=== PATIENT | male | born 1945 | race Caucasian/White ===

== ENCOUNTER → 2023-07-02 12:51 | Outpatient (REF) | payer MEDICARE, OTHER, SELFPAY ==
[2023-07-02 13:40] LABS: ALT (SGPT) 23 U/L (0-50); AST (SGOT) 24 U/L (17-59); Alkaline Phosphatase 90 U/L (38-126); Blood Urea Nitrogen 56 mg/dl (9-20); Carbon Dioxide 29 mmol/L (22-30); Chloride 102 mmol/L (98-107); Glucose 168 mg/dl (70-99); Phosphorus 4.9 mg/dl (2.5-4.5); Potassium 4.3 mmol/L (3.5-5.1); Sodium 137 mmol/L (135-145); Total Bilirubin 0.8 mg/dl (0.2-1.3); Total Protein 6.7 g/dl (6.3-8.2); eGFR 35.44
[2023-07-02 14:04] LABS: Glycohemoglobin (HgbA1c) 10.8 % (4.0-5.6)
== END ==
LOC: REG 12:51
PROVIDERS: ATTENDING PHYSICIAN Specialist; FAMILY PHYSICIAN Family Medicine
DX: N18.32 Chronic kidney disease, stage 3b (principal); E11.22 Type 2 diabetes mellitus with diabetic chronic kidney disease; I10 Essential (primary) hypertension
CPT/HCPCS: 36415; 80053; 83036; 84100

== ENCOUNTER → 2023-07-28 10:52 | Outpatient (REF) | payer MEDICARE, OTHER, SELFPAY | LOC: RAD 10:52 | PROVIDERS: ATTENDING PHYSICIAN Surgery Vascular Surgery | DX: I73.9 Peripheral vascular disease, unspecified (principal) | CPT/HCPCS: 93922; 93925 ==

== ENCOUNTER → 2023-09-26 11:20 | Outpatient (REF) | payer MEDICARE, OTHER, SELFPAY ==
[2023-09-26 13:35] LABS: % Eosinophils 2.2 % (0-6); % Immature Granulocytes 0.7 % (0-0.5); % Lymphocytes 20.9 % (20.5-51.1); % Monocytes 7.9 % (1.7-9.3); % Neutrophils 67.3 % (42.2-75.2); Absolute Basophils 0.1 10^3/uL (0-0.2); Absolute Eosinophils 0.2 10^3/uL (0-0.7); Absolute Immature Granulocytes 0.1 10^3/uL (0-0.05); Absolute Lymphocytes 1.9 10^3/uL (1.2-3.4); Absolute Monocytes 0.7 10^3/uL (0.1-0.6); Absolute Neutrophils 6.1 10^3/uL (1.4-6.5); Mean Corp Hgb Conc. 31.1 g/dL (33.0-37.0); Mean Corpuscular Hgb 27.8 pg (27.0-31.0); Mean Corpuscular Volume 89.3 fL (80.0-94.0); Mean Platelet Volume 10.8 fL (7.4-10.4); Nucleated Red Blood Cells % 0 % (-); Platelet Count 174 10^3/uL (130-400); Red Blood Cell Count 5.04 10^6/uL (4.70-6.10); Red Cell Dist. Width 15.3 % (11.5-14.5)
[2023-09-26 14:15] LABS: Protein/creatinine Ratio 2.2; Urine Protein 106 mg/dl
[2023-09-26 14:29] LABS: ALT (SGPT) 24 U/L (0-50); AST (SGOT) 25 U/L (17-59); Alkaline Phosphatase 90 U/L (38-126); Blood Urea Nitrogen 46 mg/dl (9-20); Calcium 9.4 mg/dl (8.4-10.2); Carbon Dioxide 27 mmol/L (22-30); Chloride 99 mmol/L (98-107); Glucose 158 mg/dl (70-99); HDL Cholesterol 48 mg/dl; LDL Cholesterol, Calculated 29 mg/dl; Phosphorus 4.5 mg/dl (2.5-4.5); Potassium 4.4 mmol/L (3.5-5.1); Sodium 137 mmol/L (135-145); Total Bilirubin 0.7 mg/dl (0.2-1.3); Total Cholesterol 120 mg/dl (50-199); Total Protein 6.7 g/dl (6.3-8.2); Triglyceride 219 mg/dl (10-149); Very Low Density Lipoprotein 43 mg/dl (0-30); eGFR 37.82
[2023-09-26 14:56] LABS: Glycohemoglobin (HgbA1c) 10.8 % (4.0-5.6)
[2023-09-26 14:57] LABS: PSA, Total - Diagnostic 1.77 ng/ml (0.0-4.0)
[2023-09-26 16:10] LABS: Intact PTH 58.6 pg/ml (13.6-85.8)
== END ==
LOC: REG 11:20
PROVIDERS: ATTENDING PHYSICIAN Specialist; FAMILY PHYSICIAN Family Medicine; OTHER PHYSICIAN Specialist
DX: C61 Malignant neoplasm of prostate (principal); R80.3 Bence Jones proteinuria; N18.32 Chronic kidney disease, stage 3b; I10 Essential (primary) hypertension; E11.22 Type 2 diabetes mellitus with diabetic chronic kidney disease; N18.4 Chronic kidney disease, stage 4 (severe); E11.69 Type 2 diabetes mellitus with other specified complication; E78.2 Mixed hyperlipidemia; M62.59 Muscle wasting and atrophy, not elsewhere classified, multiple sites
CPT/HCPCS: 36415; 80053; 80061; 82570; 83036; 83970; 84100; 84153; 84156; 85025

== ENCOUNTER → 2024-02-05 07:01 | Outpatient (REF) | payer MEDICARE, OTHER, SELFPAY ==
[2024-02-05 08:26] LABS: % Basophils 0.8 % (0-2); % Eosinophils 2.4 % (0-6); % Immature Granulocytes 0.6 % (0-0.5); % Lymphocytes 19.1 % (20.5-51.1); % Monocytes 10.1 % (1.7-9.3); Absolute Basophils 0.1 10^3/uL (0-0.2); Absolute Eosinophils 0.2 10^3/uL (0-0.7); Absolute Immature Granulocytes 0.1 10^3/uL (0-0.05); Absolute Lymphocytes 1.6 10^3/uL (1.2-3.4); Absolute Monocytes 0.8 10^3/uL (0.1-0.6); Absolute Neutrophils 5.5 10^3/uL (1.4-6.5); Hematocrit 43.6 % (39.0-52.0); Hemoglobin 13.9 g/dL (13.0-18.0); Mean Corp Hgb Conc. 31.9 g/dL (33.0-37.0); Mean Corpuscular Hgb 29.3 pg (27.0-31.0); Mean Corpuscular Volume 91.8 fL (80.0-94.0); Mean Platelet Volume 11.1 fL (7.4-10.4); Nucleated Red Blood Cells % 0 % (-); Platelet Count 179 10^3/uL (130-400); Red Blood Cell Count 4.75 10^6/uL (4.70-6.10); Red Cell Dist. Width 15.2 % (11.5-14.5); White Blood Cell Count 8.3 10^3/uL (4.8-10.8)
[2024-02-05 09:19] LABS: Glycohemoglobin (HgbA1c) 8.8 % (4.0-5.6)
[2024-02-05 10:37] LABS: ALT (SGPT) 22 U/L (0-50); AST (SGOT) 21 U/L (17-59); Albumin 3.8 g/dl (3.5-5.0); Alkaline Phosphatase 88 U/L (38-126); Blood Urea Nitrogen 52 mg/dl (9-20); Calcium 9.2 mg/dl (8.4-10.2); Carbon Dioxide 28 mmol/L (22-30); Chloride 100 mmol/L (98-107); Glucose 319 mg/dl (70-99); HDL Cholesterol 41 mg/dl; LDL Cholesterol, Calculated 23 mg/dl; Potassium 4.6 mmol/L (3.5-5.1); Sodium 142 mmol/L (135-145); Total Bilirubin 0.4 mg/dl (0.2-1.3); Total Cholesterol 105 mg/dl (50-199); Total Protein 6.2 g/dl (6.3-8.2); Triglyceride 208 mg/dl (10-149); Very Low Density Lipoprotein 41 mg/dl (0-30); eGFR 40.25
== END ==
LOC: REG 07:01
PROVIDERS: ATTENDING PHYSICIAN Physician Assistant; FAMILY PHYSICIAN Family Medicine
DX: E11.65 Type 2 diabetes mellitus with hyperglycemia (principal)
CPT/HCPCS: 36415; 80053; 80061; 83036; 85025

== ENCOUNTER → 2024-03-22 11:38 | Outpatient (REF) | payer MEDICARE, OTHER, SELFPAY ==
[2024-03-22 14:32] LABS: PSA, Total - Diagnostic 2.19 ng/ml (0.0-4.0)
== END ==
LOC: REG 11:38
PROVIDERS: ATTENDING PHYSICIAN Specialist; FAMILY PHYSICIAN Family Medicine
DX: C61 Malignant neoplasm of prostate (principal)
CPT/HCPCS: 36415; 84153

== ENCOUNTER → 2024-05-22 11:19 | Outpatient (REF) | payer MEDICARE, OTHER, SELFPAY ==
[2024-05-22 12:29] LABS: Albumin 4.1 g/dl (3.5-5.0); Blood Urea Nitrogen 51 mg/dl (9-20); Calcium 9.2 mg/dl (8.4-10.2); Carbon Dioxide 26 mmol/L (22-30); Chloride 97 mmol/L (98-107); Glucose 257 mg/dl (70-99); Phosphorus 4.6 mg/dl (2.5-4.5); Potassium 4.5 mmol/L (3.5-5.1); Sodium 136 mmol/L (135-145); eGFR 33.12
[2024-05-22 12:30] LABS: Protein/creatinine Ratio 2.6; Urine Protein 100 mg/dl
[2024-05-22 12:40] LABS: Intact PTH 84.9 pg/ml (13.6-85.8)
[2024-05-22 12:59] LABS: PSA, Total - Diagnostic 1.64 ng/ml (0.0-4.0)
[2024-05-22 14:11] LABS: Glycohemoglobin (HgbA1c) 9.8 % (4.0-5.6)
== END ==
LOC: REG 11:19
PROVIDERS: ATTENDING PHYSICIAN Specialist; FAMILY PHYSICIAN Family Medicine; REFERRING PHYSICIAN Specialist
DX: C61 Malignant neoplasm of prostate (principal); I10 Essential (primary) hypertension; E78.2 Mixed hyperlipidemia; N18.4 Chronic kidney disease, stage 4 (severe); E11.621 Type 2 diabetes mellitus with foot ulcer
CPT/HCPCS: 36415; 80069; 82570; 83036; 83970; 84153; 84156

== ENCOUNTER → 2024-06-14 10:49 | Outpatient (REF) | payer MEDICARE, OTHER, SELFPAY ==
[2024-06-14 11:53] LABS: Protein/creatinine Ratio 2.2; Urine Protein 90 mg/dl
[2024-06-14 11:59] LABS: ALT (SGPT) 68 U/L (0-50); AST (SGOT) 60 U/L (17-59); Albumin 4.1 g/dl (3.5-5.0); Alkaline Phosphatase 82 U/L (38-126); Blood Urea Nitrogen 48 mg/dl (9-20); Calcium 9.4 mg/dl (8.4-10.2); Carbon Dioxide 28 mmol/L (22-30); Chloride 98 mmol/L (98-107); Glucose 195 mg/dl (70-99); Phosphorus 4.3 mg/dl (2.5-4.5); Potassium 4.7 mmol/L (3.5-5.1); Sodium 139 mmol/L (135-145); Total Bilirubin 0.6 mg/dl (0.2-1.3); Total Protein 6.8 g/dl (6.3-8.2); Uric Acid 2.8 mg/dl (3.5-8.5); eGFR 43.29
[2024-06-14 12:16] LABS: Microalbumin, Random Urine 28.3 mg/dl (0.6-1.7); Microalbumin/creatinine Ratio 686.9 mg/g
[2024-06-14 12:17] LABS: Vitamin D, 25-OH*** 64.2 ng/mL (30-80)
[2024-06-14 12:30] LABS: PSA, Total - Diagnostic 1.58 ng/ml (0.0-4.0); TSH Reflex To Free T4 2.27 uIU/ml (0.47-4.68)
[2024-06-14 12:48] LABS: Vitamin B12 317 pg/ml (239-931)
[2024-06-14 18:44] LABS: Hepatitis C Antibody Negative (Negative)
[2024-06-15 11:42] LABS: Intact PTH 60.3 pg/ml (13.6-85.8)
== END ==
LOC: REG 10:49
PROVIDERS: ATTENDING PHYSICIAN Specialist; FAMILY PHYSICIAN Family Medicine; OTHER PHYSICIAN Internal Medicine Medical Oncology
DX: N18.32 Chronic kidney disease, stage 3b (principal); I10 Essential (primary) hypertension; E78.2 Mixed hyperlipidemia; N18.4 Chronic kidney disease, stage 4 (severe); Z79.899 Other long term (current) drug therapy; Z01.89 Encounter for other specified special examinations; R79.9 Abnormal finding of blood chemistry, unspecified; M1A.9XX0 Chronic gout, unspecified, without tophus (tophi); C61 Malignant neoplasm of prostate
CPT/HCPCS: 36415; 80053; 82043; 82306; 82570; 82607; 83970; 84100; 84153; 84156; 84443; 84550; 86803

== ENCOUNTER → 2024-07-24 09:27 | Outpatient (REF) | payer MEDICARE, OTHER, SELFPAY ==
[2024-07-24 12:05] LABS: PSA, Total - Diagnostic 1.71 ng/ml (0.0-4.0)
== END ==
LOC: REG 09:27
PROVIDERS: ATTENDING PHYSICIAN Specialist; FAMILY PHYSICIAN Family Medicine
DX: C61 Malignant neoplasm of prostate (principal)
CPT/HCPCS: 36415; 84153

== ENCOUNTER → 2024-09-06 14:09 | Outpatient (REF) | payer MEDICARE, OTHER, SELFPAY ==
[2024-09-06 14:40] LABS: % Basophils 0.6 % (0-2); % Eosinophils 1.5 % (0-6); % Immature Granulocytes 0.6 % (0-0.5); % Lymphocytes 25.2 % (20.5-51.1); % Monocytes 7.3 % (1.7-9.3); % Neutrophils 64.8 % (42.2-75.2); Absolute Basophils 0.1 10^3/uL (0-0.2); Absolute Eosinophils 0.1 10^3/uL (0-0.7); Absolute Immature Granulocytes 0.1 10^3/uL (0-0.05); Absolute Lymphocytes 2.2 10^3/uL (1.2-3.4); Absolute Monocytes 0.6 10^3/uL (0.1-0.6); Absolute Neutrophils 5.7 10^3/uL (1.4-6.5); Mean Corp Hgb Conc. 31.8 g/dL (33.0-37.0); Mean Corpuscular Hgb 28.1 pg (27.0-31.0); Mean Corpuscular Volume 88.2 fL (80.0-94.0); Mean Platelet Volume 10.2 fL (7.4-10.4); Nucleated Red Blood Cells % 0 % (-); Platelet Count 194 10^3/uL (130-400); Red Blood Cell Count 4.99 10^6/uL (4.70-6.10); Red Cell Dist. Width 15.3 % (11.5-14.5); White Blood Cell Count 8.8 10^3/uL (4.8-10.8)
[2024-09-06 15:04] LABS: Glycohemoglobin (HgbA1c) 8.9 % (4.0-5.6)
[2024-09-06 16:10] LABS: ALT (SGPT) 36 U/L (0-50); AST (SGOT) 32 U/L (17-59); Albumin 4.2 g/dl (3.5-5.0); Alkaline Phosphatase 99 U/L (38-126); Blood Urea Nitrogen 44 mg/dl (9-20); Calcium 9.3 mg/dl (8.4-10.2); Carbon Dioxide 26 mmol/L (22-30); Chloride 102 mmol/L (98-107); Glucose 139 mg/dl (70-99); HDL Cholesterol 44 mg/dl; LDL Cholesterol, Calculated 31 mg/dl; Potassium 4.5 mmol/L (3.5-5.1); Sodium 142 mmol/L (135-145); Total Bilirubin 0.7 mg/dl (0.2-1.3); Total Cholesterol 109 mg/dl (50-199); Total Protein 6.7 g/dl (6.3-8.2); Triglyceride 172 mg/dl (10-149); Very Low Density Lipoprotein 34 mg/dl (0-30); eGFR 40.25
[2024-09-06 16:55] LABS: Vitamin B12 854 pg/ml (239-931)
== END ==
LOC: REG 14:09
PROVIDERS: ATTENDING PHYSICIAN Specialist; FAMILY PHYSICIAN Family Medicine; REFERRING PHYSICIAN Physician Assistant
DX: N18.32 Chronic kidney disease, stage 3b (principal); E11.65 Type 2 diabetes mellitus with hyperglycemia; Z68.32 Body mass index [BMI] 32.0-32.9, adult; R79.9 Abnormal finding of blood chemistry, unspecified; Z01.89 Encounter for other specified special examinations; Z79.899 Other long term (current) drug therapy; E53.8 Deficiency of other specified B group vitamins
CPT/HCPCS: 36415; 80053; 80061; 82607; 83036; 85025

== ENCOUNTER 2024-09-22 16:34 | Inpatient (IN) | payer MEDICARE, OTHER, SELFPAY ==
[2024-09-22] VITALS (8 sets, daily range): BP systolic 112–144; BP diastolic 57–79; BMI 31.9; BMI 31.7
--- NOTE | 2024-09-22 12:34 | ED.GENMED ---
History of Present Illness
<Clarita Barney PA-C - Last Filed: 09/22/24 19:38>
General
Chief Complaint: Abdominal Symptoms
Source: patient
Exam Limitations: none
Time Seen by Provider: 09/22/24 12:23
Nursing documentation reviewed up to this point in time: agreed with
History of Present Illness
History of Present Illness:
Patient is an 78-year-old male with history atrial fibrillation on Eliquis, CHF, CAD, hypertension, hyperlipidemia, CKD, diabetes presenting to the emergency department with abdominal pain. Patient states symptoms started last night around 9 PM.
He describes somewhat diffuse abdominal pain without any radiation to back. He does report nausea although denies any vomiting. He also reports urinary frequency and multiple formed bowel movements. Patient denies any fever or chills. No
diarrhea. No dysuria. No chest pain or shortness of breath.
Patient states he had just eaten [place] water ice prior to onset of symptoms.
He denies any history of similar symptoms.
No known sick contacts.
Past History
<Clarita Barney PA-C - Last Filed: 09/22/24 19:38>
Past History
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
ED Past Surgical History: Cardiac (Pacemaker, stent RCA), Orthopedic and Other (Left foot ulceration with surgery)
Social History
Tobacco: Non-smoker
Alcohol: None
Personal:
Living: with family
Employment: Retired
Family History
Family History: Diabetes
Review of Systems
<Clarita Barney PA-C - Last Filed: 09/22/24 19:38>
Review of Systems
Allergies reviewed?: Yes
All Other Systems: ROS reviewed and negative except as documented in HPI and ROS
Phy Exam
<Clarita Barney PA-C - Last Filed: 09/22/24 19:38>
Physical Exam
Physical Exam:
Vitals: Patient's vital signs are stable. Afebrile
General: Patient is well appearing, no acute distress
Skin: Warm and dry, no rashes or lesions
Head: Normocephalic, atraumatic
Eyes: Sclera nonicteric. EOMs intact. No nystagmus.
Throat: Protecting airway
Neck: Normal ROM, no cervical spine tenderness, no meningismus
Cardiac: Regular rate and rhythm, no murmurs.
Pulm: Normal respiratory effort, no wheezes, rales, rhonchi heard on exam.
Abdomen: Mildly distended. Moderate diffuse abdominal tenderness without rebound tenderness or guarding. No CVA tenderness.
Extremities: No evidence of cyanosis or edema. Palpable DP pulses
Neuro: AAOx3. CN II-XII grossly intact on examination. No focal neurologic deficits.
Psychiatric: Normal affect.
Course
<Clarita Barney PA-C - Last Filed: 09/22/24 19:38>
Orders/Labs/Results
Orders:
Orders
09/22/24 Lunch
NPO
Allow oral meds: Yes
Allow clear liquids: No
09/22/24 12:32
HYDROmorphone [Dilaudid] 0.5 mg IV NOW STA
09/22/24 12:33
Electrocardiogram (*1) Urgent
Reason for Study: Abdominal Pain
CT Abd/pelvis W Iv Cont Urgent
Comment:
Reason For Exam: Abdominal pain, urinary frequency
EKG- Treatment ONCE
Interrogate Pacemaker- Treatment ONCE
09/22/24 12:44
Complete Blood Count/With Diff Urgent
Comprehensive Metabolic Panel Urgent
Creatine Phosphokinase Urgent
Comment: ADD ON
Lactic Acid Q4H
Comment: CANCEL 2nd LACTIC ACID IF 1st LACTIC ACID IS LESS THAN 2
Lipase Urgent
Urinalysis Reflex To Culture Urgent
Date Specimen was Collected: 09/22/24
Time Specimen was Collected: 12:34
Urine Microscopic Reflex Cult Urgent
09/22/24 12:54
0.9% Sodium Chloride 500 ml [Nss] 500 ml IV BOLUS
09/22/24 13:55
0.9% Sodium Chloride 1000 ml [Nss] 1,000 ml IV BOLUS
09/22/24 14:52
Piperacillin/Tazo 3.375 Gram [Zosyn] 3.375 gram in 50 ml IV NOW
09/22/24 15:11
Blood Culture Q30M
[place] Source: Blood/Venous
Specimen Description:
Blood Culture Q30M
[place]IE[place] Source: Blood/Venous
Specimen Description:
09/22/24 15:28
US Abdomen Complete/Upper Urgent
Comment:
Reason For Exam: RUQ pain, elevated LFTs
09/22/24 16:01
Admit/Transfer Patient As Directed
Co-Sign Provider:
Level of Care: Inpatient admission
Assign to:: Telemetry
Physician / Group: Preethi Zheng
Diagnosis: acute cholecystitis
Reason for Telemetry: Arrhythmia
Date to Stop Telemetry: 09/25/24
Time to Stop Telemetry: 11:00
Reason for Hospitalization: acute cholecystitis
Expected length of stay greater than two midnights?: Yes
ELOS- Estimated Length of Stay in days: 3
I certify the patient meets the requirements for IP care: Yes
PRN Pain Medication Management As Directed
May give lesser potent ordered pain med per pt: Yes
preference::
Protocol:: Medication orders for pain may be administered in a
manner that supports deferring to patient preference
when the pt is:
- Requesting an ordered lesser potent pain medication.
Least to most potent pain medications are defined
as: acetaminophen < NSAID < tramadol < opioids
(morphine, oxycodone, hydromorphone).
- Requesting a lesser dose of the same medication IF
ORDERED.
- Requesting a less intrusive route of administration
if both routes are prescribed by the provider (PO <
IV).
09/22/24 16:02
Code Status As Directed
Resuscitation Status: Do not resuscitate
Reached after discussion with pt or family/Healthcare POA: Yes
09/22/24 16:04
DNR Bracelet Application ONCE
09/22/24 17:29
0.9% Sodium Chloride 1000 ml [Nss] 1,000 ml IV 80 mls/hr
Dextrose 50%-Water [Dextrose 50% Syringe] 12.5 grams IV [id number] PRN
Docusate W/Senna [Senokot-S] 1 tablet PO BIDPRN PRN
Glucagon [GlucaGen] 1 mg IM PRN PRN
HYDROmorphone [Dilaudid] 0.5 mg IV Q3HPRN PRN
Insulin Aspart Corrective Low [Novolog Flexpen-Low Resistance] See Protocol SC AC
Polyethylene Glycol Powder [Miralax] 17 grams PO DAILYPRN PRN
09/22/24 17:29
Consult Surgery [SURGICAL CONSULT] Routine
Consulting Provider: Aries Vaca
Was physician already notified: Yes
GASTROINTESTINAL CONSULT Routine
Consulting Provider: Newton Crowley
Was physician already notified: Yes
Activity As Directed
Activity Level: As Tolerated
Bedside Glucose Monitoring As Directed
Frequency: AC&HS
Additional Instructions:: Change to q6h if pt on TPN, tube feeding or not eating
Nursing to Place Non Medication Order As Directed
Physician Order: please TT me post US, can likely order CLD
Above order entered?: Yes
Pneumatic Compression Sleeves As Directed
Type: Knee high
Vital Signs As Directed
Frequency: Per unit guidelines
Weight As Directed
Frequency: Daily
DX Deep Vein Thrombosis Video Routine
09/22/24 18:01
Lactic Acid Q4H
Comment: CANCEL 2nd LACTIC ACID IF 1st LACTIC ACID IS LESS THAN 2
09/22/24 22:00
Lactate Level [Lactic Acid] Q6H
Piperacillin/Tazo 3.375 Gram [Zosyn] 3.375 gram in 50 ml IV Q6H
09/23/24 06:00
Complete Blood Count/With Diff IN AM
Comprehensive Metabolic Panel IN AM
Glycohemoglobin (HgbA1c) IN AM
Lactate Level [Lactic Acid] IN AM
Magnesium IN AM
09/23/24 08:00
Allopurinol [Zyloprim] 300 mg PO DAILY
Aspirin Low Dose EC [Aspir Low (Enteric Coated)] 81 mg PO DAILY
Escitalopram Oxalate [Lexapro] 10 mg PO DAILY
Finasteride [Proscar] 5 mg PO DAILY
Losartan [Cozaar] 25 mg PO DAILY
Pantoprazole [Protonix] 40 mg PO DAILY
09/25/24 11:00
DC Protocol for Telemetry ONCE
Abnormal Lab Results
09/22/24
12:44
WBC 16.0 H 10^3/uL
(4.8-10.8)
MCHC 32.9 L g/dL
(33.0-37.0)
RDW 15.3 H %
(11.5-14.5)
MPV 10.7 H fL
(7.4-10.4)
Abs Immat Gran (auto) 0.1 H 10^3/uL
(0-0.05)
Absolute Neuts (auto) 14.3 H 10^3/uL
(1.4-6.5)
Absolute Lymphs (auto) 0.4 L 10^3/uL
(1.2-3.4)
Absolute Monos (auto) 1.2 H 10^3/uL
(0.1-0.6)
Neutrophils % 89.4 H %
(42.2-75.2)
Lymphocytes % 2.5 L %
(20.5-51.1)
BUN 45 H mg/dl
(9-20)
Creatinine 1.9 H mg/dL
(0.7-1.3)
Glucose 297 H mg/dl
(70-99)
Lactic Acid 2.8 H mmol/L
(0.7-2.0)
Total Bilirubin 1.9 H mg/dl
(0.2-1.3)
AST 2021 H* U/L
(17-59)
ALT 989 H* U/L
(0-50)
Alkaline Phosphatase 389 H U/L
(38-126)
Ur Occult Blood Reflex 3+ A
(Negative)
Urine RBC 7-10 A /HPF
(0-2)
Urine Bacteria (Reflex) Few A
(Negative)
Urine Glucose 4+ A
(Negative)
Urine Albumin (Reflex) 2+ A
(Neg - Trace)
09/22/24 12:44
09/22/24 12:44
Vital Signs
Initial and Last Documented VS:
Initial Vital Signs
Temp Pulse Resp BP Pulse Ox
98.9 F 100 16 119/64 98
09/22/24 12:11 09/22/24 12:11 09/22/24 12:11 09/22/24 12:11 09/22/24 12:11
Last Documented Vital Signs
Temp Pulse Resp BP Pulse Ox
97.6 F 100 18 144/79 98
09/22/24 17:34 09/22/24 17:34 09/22/24 17:34 09/22/24 17:34 09/22/24 17:34
<Evin Moran, DO - Last Filed: 09/22/24 13:59>
Orders/Labs/Results
Orders:
Orders
09/22/24 Lunch
NPO
Allow oral meds: Yes
Allow clear liquids: No
09/22/24 12:32
HYDROmorphone [Dilaudid] 0.5 mg IV NOW STA
09/22/24 12:33
Electrocardiogram (*1) Urgent
Reason for Study: Abdominal Pain
CT Abd/pelvis W Iv Cont Urgent
Comment:
Reason For Exam: Abdominal pain, urinary frequency
EKG- Treatment ONCE
Interrogate Pacemaker- Treatment ONCE
09/22/24 12:44
Complete Blood Count/With Diff Urgent
Comprehensive Metabolic Panel Urgent
Creatine Phosphokinase Urgent
Comment: ADD ON
Lactic Acid Q4H
Comment: CANCEL 2nd LACTIC ACID IF 1st LACTIC ACID IS LESS THAN 2
Lipase Urgent
Urinalysis Reflex To Culture Urgent
Date Specimen was Collected: 09/22/24
Time Specimen was Collected: 12:34
Urine Microscopic Reflex Cult Urgent
09/22/24 12:54
0.9% Sodium Chloride 500 ml [Nss] 500 ml IV BOLUS
09/22/24 13:55
0.9% Sodium Chloride 1000 ml [Nss] 1,000 ml IV BOLUS
09/22/24 14:52
Piperacillin/Tazo 3.375 Gram [Zosyn] 3.375 gram in 50 ml IV NOW
09/22/24 15:11
Blood Culture Q30M
[place] Source: Blood/Venous
Specimen Description:
Blood Culture Q30M
[place] Source: Blood/Venous
Specimen Description:
09/22/24 15:28
US Abdomen Complete/Upper Urgent
Comment:
Reason For Exam: RUQ pain, elevated LFTs
09/22/24 16:01
Admit/Transfer Patient As Directed
Co-Sign Provider:
Level of Care: Inpatient admission
Assign to:: Telemetry
Physician / Group: Preethi Zheng
Diagnosis: acute cholecystitis
Reason for Telemetry: Arrhythmia
Date to Stop Telemetry: 09/25/24
Time to Stop Telemetry: 11:00
Reason for Hospitalization: acute cholecystitis
Expected length of stay greater than two midnights?: Yes
ELOS- Estimated Length of Stay in days: 3
I certify the patient meets the requirements for IP care: Yes
PRN Pain Medication Management As Directed
May give lesser potent ordered pain med per pt: Yes
preference::
Protocol:: Medication orders for pain may be administered in a
manner that supports deferring to patient preference
when the pt is:
- Requesting an ordered lesser potent pain medication.
Least to most potent pain medications are defined
as: acetaminophen < NSAID < tramadol < opioids
(morphine, oxycodone, hydromorphone).
- Requesting a lesser dose of the same medication IF
ORDERED.
- Requesting a less intrusive route of administration
if both routes are prescribed by the provider (PO <
IV).
09/22/24 16:02
Code Status As Directed
Resuscitation Status: Do not resuscitate
Reached after discussion with pt or family/Healthcare POA: Yes
09/22/24 16:04
DNR Bracelet Application ONCE
09/22/24 17:29
0.9% Sodium Chloride 1000 ml [Nss] 1,000 ml IV 80 mls/hr
Dextrose 50%-Water [Dextrose 50% Syringe] 12.5 grams IV [id number] PRN
Docusate W/Senna [Senokot-S] 1 tablet PO BIDPRN PRN
Glucagon [GlucaGen] 1 mg IM PRN PRN
HYDROmorphone [Dilaudid] 0.5 mg IV Q3HPRN PRN
Insulin Aspart Corrective Low [Novolog Flexpen-Low Resistance] See Protocol SC AC
Polyethylene Glycol Powder [Miralax] 17 grams PO DAILYPRN PRN
09/22/24 17:29
Consult Surgery [SURGICAL CONSULT] Routine
Consulting Provider: Aries Vaca
Was physician already notified: Yes
GASTROINTESTINAL CONSULT Routine
Consulting Provider: Newton Crowley
Was physician already notified: Yes
Activity As Directed
Activity Level: As Tolerated
Bedside Glucose Monitoring As Directed
Frequency: AC&HS
Additional Instructions:: Change to q6h if pt on TPN, tube feeding or not eating
Nursing to Place Non Medication Order As Directed
Physician Order: please TT me post US, can likely order CLD
Above order entered?: Yes
Pneumatic Compression Sleeves As Directed
Type: Knee high
Vital Signs As Directed
Frequency: Per unit guidelines
Weight As Directed
Frequency: Daily
DX Deep Vein Thrombosis Video Routine
09/22/24 18:01
Lactic Acid Q4H
Comment: CANCEL 2nd LACTIC ACID IF 1st LACTIC ACID IS LESS THAN 2
09/22/24 22:00
Lactate Level [Lactic Acid] Q6H
Piperacillin/Tazo 3.375 Gram [Zosyn] 3.375 gram in 50 ml IV Q6H
09/23/24 06:00
Complete Blood Count/With Diff IN AM
Comprehensive Metabolic Panel IN AM
Glycohemoglobin (HgbA1c) IN AM
Lactate Level [Lactic Acid] IN AM
Magnesium IN AM
09/23/24 08:00
Allopurinol [Zyloprim] 300 mg PO DAILY
Aspirin Low Dose EC [Aspir Low (Enteric Coated)] 81 mg PO DAILY
Escitalopram Oxalate [Lexapro] 10 mg PO DAILY
Finasteride [Proscar] 5 mg PO DAILY
Losartan [Cozaar] 25 mg PO DAILY
Pantoprazole [Protonix] 40 mg PO DAILY
09/25/24 11:00
DC Protocol for Telemetry ONCE
Abnormal Lab Results
09/22/24
12:44
WBC 16.0 H 10^3/uL
(4.8-10.8)
MCHC 32.9 L g/dL
(33.0-37.0)
RDW 15.3 H %
(11.5-14.5)
MPV 10.7 H fL
(7.4-10.4)
Abs Immat Gran (auto) 0.1 H 10^3/uL
(0-0.05)
Absolute Neuts (auto) 14.3 H 10^3/uL
(1.4-6.5)
Absolute Lymphs (auto) 0.4 L 10^3/uL
(1.2-3.4)
Absolute Monos (auto) 1.2 H 10^3/uL
(0.1-0.6)
Neutrophils % 89.4 H %
(42.2-75.2)
Lymphocytes % 2.5 L %
(20.5-51.1)
BUN 45 H mg/dl
(9-20)
Creatinine 1.9 H mg/dL
(0.7-1.3)
Glucose 297 H mg/dl
(70-99)
Lactic Acid 2.8 H mmol/L
(0.7-2.0)
Total Bilirubin 1.9 H mg/dl
(0.2-1.3)
AST 2021 H* U/L
(17-59)
ALT 989 H* U/L
(0-50)
Alkaline Phosphatase 389 H U/L
(38-126)
Ur Occult Blood Reflex 3+ A
(Negative)
Urine RBC 7-10 A /HPF
(0-2)
Urine Bacteria (Reflex) Few A
(Negative)
Urine Glucose 4+ A
(Negative)
Urine Albumin (Reflex) 2+ A
(Neg - Trace)
09/22/24 12:44
09/22/24 12:44
Vital Signs
Initial and Last Documented VS:
Initial Vital Signs
Temp Pulse Resp BP Pulse Ox
98.9 F 100 16 119/64 98
09/22/24 12:11 09/22/24 12:11 09/22/24 12:11 09/22/24 12:11 09/22/24 12:11
Last Documented Vital Signs
Temp Pulse Resp BP Pulse Ox
97.6 F 100 18 144/79 98
09/22/24 17:34 09/22/24 17:34 09/22/24 17:34 09/22/24 17:34 09/22/24 17:34
<Clarita Barney PA-C - Last Filed: 09/22/24 19:38>
MDM/Problems Addressed
Differential Diagnosis Includes:
Not limited to: Pyelonephritis, diverticulitis, cystitis, appendicitis, pancreatitis, cholecystitis, etc.
MDM/Problems Addressed:
78-year-old male with 1 day of abdominal pain associate with nausea frequent bowel movements. No known fever or vomiting. No dysuria. Vital stable on arrival�patient is afebrile. Physical exam as above. Patient well-appearing. Abdomen
distended with moderate diffuse tenderness. No CVA tenderness. Cardio/pulmonary assessment unremarkable. Differential broad at this time. Plan for labs, lactic, urinalysis, CT abdomen/pelvis. Will give IV fluids, pain medication and reassess.
Update: Labs reviewed. Leukocytosis of 16 with left shift. Initial lactic of 2.8. Chemistry shows renal insufficiency which appears baseline for patient. There is an elevation in total bilirubin of 1.9 with significant transaminitis and elevated
alkaline phosphatase. Lipase is normal. On reassessment�patient's symptoms have improved. Will continue to resuscitate with IV fluids. CT pending.
Update: CT scan shows findings of acute cholecystitis. Concern for possible obstructive process given significant elevation in LFTs. Case discussed with general surgery and gastroenterology. Patient does meet sepsis criteria given mild
tachycardia, leukocytosis, elevated lactic and findings of acute cholecystitis. Patient remains normotensive and stable. Will start IV Zosyn admit to hospitalist. Given concern for obstructive process�patient will likely require MRCP along with
general surgery/GI consult. Patient accepted to hospitalist in stable condition
Chronic conditions affecting care:
Atrial fibrillation on Eliquis
Acute Exacerbation and/or Progression of Chronic Illness:
Acute cholecystitis
<Clarita Barney PA-C - Last Filed: 09/22/24 19:38>
*Radiology
Radiology exam reviewed: radiology read reviewed
*Pulse Oximetry
Patient hypoxic: no
*EKG
Interpreted by ED Provider?: Yes
EKG Intrepretation Date: 09/22/24
Interpretation: abnormal
Comparison EKG: no changes
Heart Rate: 96
Rate: normal
Rhythm: sinus
[place]: left axis deviation
Interval: first degree heart block
QRS Pattern: right bundle branch block
Ischemia: no ischemia
*Will Call Order Clerk Interpretation
Rate: normal
Interpretation: normal
Heart Rate: 92
Rhythm: sinus
*Critical Care Note
Total Time (30-74mins, 75-104mins- exclusive of procedures): Not Applicable
<Clarita Barney PA-C - Last Filed: 09/22/24 19:38>
Patient Management
Discussion with other providers: Hospitalist and Tub Mender (Case discussed with general surgery and gastroenterology)
Escalation/DeEscalation of care consider admission/obs:
Admit for IV antibiotics, GI/GEN surge consult and further management
ED Attending Note
<Clarita Barney PA-C - Last Filed: 09/22/24 19:38>
-
Portions of this chart may have been created with voice recognition software.� Occasional wrong word or��sound alike� substitutions may have occurred due to the inherent limitations of voice recognition software.
<Evin Moran DO - Last Filed: 09/22/24 13:59>
ED Attending Note
Patient seen and examined by attending physician: Yes
I performed the substantive portion of visit, reviewed & personally made and approve the management plan that is documented in note by myself or WILLIAM.: Yes
ED Attending Note:
78-year-old male with diffuse abdominal pain that started relatively suddenly last night at 9 PM. Patient states the pain was pretty severe and his states that she could not even touch the abdomen. Patient feels better now after some pain
medications. He has never had pain like this before. No reported fevers. Denies urinary symptoms. Exam: Diffusely distended abdomen. Moderate diffuse tenderness. Awake and alert. Assessment plan: Check CT. Has a leukocytosis, left shift,
elevated LFTs. Anticipate admission. Further care pending CT results
Discharge Plan
Departure
Patient Disposition: Admit
Date of Disposition: 09/22/24
Time of Disposition: 14:53
Presentation/result/management discussed w/ accepting MD/DO: Hospitalist
Discharge Problem:
Acute cholecystitis
Interventions
Interventions:
*Risk Screen - Suicide Last Done: 09/22/24 13:07
*General Assessment Last Done: 09/22/24 13:07
*Neglect/Abuse Screening Last Done: 09/22/24 13:07
*ED- Fall Risk Assessment Last Done: 09/22/24 13:07
*ED COVID-19 Vaccine History Last Done: 09/22/24 13:07
*Nursing Disposition Last Done: 09/22/24 16:44
AV-Rmdnrt-[id number] Assessment Last Done: 09/22/24 13:07
Discharge Date and Time
Discharge Date/Time: 09/22/24 17:32
[2024-09-22 12:52] LABS: % Basophils 0.2 % (0-2); % Immature Granulocytes 0.4 % (0-0.5); % Lymphocytes 2.5 % (20.5-51.1); % Monocytes 7.5 % (1.7-9.3); % Neutrophils 89.4 % (42.2-75.2); Absolute Immature Granulocytes 0.1 10^3/uL (0-0.05); Absolute Lymphocytes 0.4 10^3/uL (1.2-3.4); Absolute Monocytes 1.2 10^3/uL (0.1-0.6); Absolute Neutrophils 14.3 10^3/uL (1.4-6.5); Hemoglobin 14.8 g/dL (13.0-18.0); Mean Corp Hgb Conc. 32.9 g/dL (33.0-37.0); Mean Corpuscular Hgb 28.2 pg (27.0-31.0); Mean Corpuscular Volume 85.7 fL (80.0-94.0); Mean Platelet Volume 10.7 fL (7.4-10.4); Nucleated Red Blood Cells % 0 % (-); Platelet Count 192 10^3/uL (130-400); Red Blood Cell Count 5.25 10^6/uL (4.70-6.10); Red Cell Dist. Width 15.3 % (11.5-14.5)
[2024-09-22] MEDS: NSS 500 IV (12:58)
[2024-09-22] MEDS: DILAUDID 0.5 MG IV ×2 (13:01→17:59)
[2024-09-22 13:06] LABS: Lactic Acid 2.8 mmol/L (0.7-2.0)
[2024-09-22 13:14] LABS: Albumin 3.9 g/dl (3.5-5.0); Alkaline Phosphatase 389 U/L (38-126); Blood Urea Nitrogen 45 mg/dl (9-20); Calcium 9.4 mg/dl (8.4-10.2); Carbon Dioxide 24 mmol/L (22-30); Chloride 102 mmol/L (98-107); Estimated Creatinine Clearance 40 ml/min; Glucose 297 mg/dl (70-99); Lipase 107 U/L (23-300); Potassium 3.8 mmol/L (3.5-5.1); Sodium 140 mmol/L (135-145); Total Bilirubin 1.9 mg/dl (0.2-1.3); Total Protein 6.7 g/dl (6.3-8.2); eGFR 35.22
[2024-09-22 13:34] LABS: ALT (SGPT) 989 U/L (0-50)
[2024-09-22 13:53] LABS: AST (SGOT) 2021 U/L (17-59)
[2024-09-22 14:37] LABS: Urine Albumin 2+ (Neg - Trace); Urine Bilirubin Negative (Negative); Urine Character Clear (Clear); Urine Color Yellow; Urine Glucose 4+ (Negative); Urine Ketone Negative (Negative); Urine Leukocyte Negative (Negative); Urine Nitrite Negative (Negative); Urine Occult Blood 3+ (Negative); Urine Urobilinogen Negative (Neg - 1+)
[2024-09-22 14:47] LABS: Urine Bacteria Few (Negative); Urine Squamous Cell 0-2 /LPF (Few)
[2024-09-22] MEDS: NSS 1000 IV ×2 (15:04→17:52)
[2024-09-22] MEDS: ZOSYN 50 IV ×2 (15:04→21:31)
--- NOTE | 2024-09-22 15:33 | HPS.HSE ---
Family Physician
-
Family Physician: Soco Meza MD
Chief Complaint
-
abdominal pain
History of Present Illness
Mr. Darnell Salinas is a 78 yo man with hx atrial fibrillation on Eliquis, tachy-steve syndrome s/p PPM, HFpEF, CAD s/p PCI 11/14, essential HTN, HLD, CKD, DM, prostate CA s/p TURP presents to the ER with abdominal pain.
Patient states pain started last night after eating. When asked to localize pain he points to entire abdomen including lower abdomen. When palpated now, there is more pain in RUQ. No fevers/chills. + nausea, no vomiting. He has had normal bowel
movements, not black or bloody. No dysuria.
No chest pain or shortness of breath. No LE swelling.
Patient has poor mobility at baseline, mainly uses a walker or wheelchair.
Medical History
Past Medical History
Past Medical History: Reports Other
Additional Past Medical History:
Coronary Artery Disease s/p LAD Drug-Eluting Stent in October 2021
Chronic HFpEF
Atrial Fibrillation
Tachy/Steve Syndrome s/p Pacemaker
Essential Hypertension
Hyperlipidemia
Diabetes Mellitus, Type II
Diabetic Neuropathy
Diabetic Nephropathy with CKD Stage III
BPH
Gout
Hx Prostate CA s/p TURP
Past Surgical History: Reports Other
Additional Past Surgical History:
Left Foot Surgery
Bilateral Cataracts
Social History
Tobacco: Non-smoker
Alcohol: None
Personal:
Living: With Family
Family History
Family History: Not pertinent
Allergies / Home Medications
Allergies reflects when Allergies were last updated in [employer].
Home Medications with original date entered in [employer]
Allergy/Medication List:
Allergies
Allergy/AdvReac Type Severity Reaction Status Date / Time
No Known Allergies Allergy Verified 04/30/25 12:12
Home Medications
cholecalciferol (vitamin D3) 50 mcg (2,000 unit) capsule (Vitamin D3) 1,000 unit PO DAILY Supplement 07/01/13
allopurinol 300 mg tablet 300 mg PO DAILY Gout 07/02/13
pantoprazole 40 mg tablet,delayed release 40 mg PO DAILY Gastrointestinal issue 10/04/18
finasteride 5 mg tablet 5 mg PO DAILY Urinary issue 10/25/21
nitroglycerin 0.4 mg sublingual tablet 0.4 mg sublingual [id number] PRN chest pain #25 tabs 10/26/21
rosuvastatin 40 mg tablet 40 mg PO QPM #90 tabs 10/26/21
furosemide 40 mg tablet 40 mg PO MOWEFR Fluid retention/Swelling 11/21/21
apixaban 5 mg tablet (Eliquis) 2.5 mg PO BID Blood clot prevention/tx 04/02/22
triamcinolone acetonide 0.1 % topical cream 1 applic topical BIDPRN PRN ankle cellulitis R leg 04/02/22
losartan 25 mg tablet 25 mg PO DAILY 01/23/23
aspirin 81 mg tablet,delayed release 81 mg PO DAILY 09/22/24
cyanocobalamin (vitamin B-12) 1,000 mcg tablet 1,000 mcg PO DAILY 09/22/24
empagliflozin 25 mg tablet (Jardiance) 25 mg PO DAILY 09/22/24
escitalopram oxalate 10 mg tablet (Lexapro) 10 mg PO DAILY 09/22/24
insulin degludec 200 unit/mL (3 mL) subcutaneous pen (Tresiba FlexTouch U-200 insulin) 44 unit SC QPM 09/22/24
tirzepatide 10 mg/0.5 mL subcutaneous pen injector (Mounjaro) 10 mg SC BORGES 09/22/24
Review of Systems
-
History Source: Patient
A 12 point ROS was completed and negative except as noted: Yes
Physical Exam
Vital Signs
Vital Signs
Temp Pulse Resp BP Pulse Ox
97.6 F 94 24 143/68 93
09/22/24 13:07 09/22/24 15:15 09/22/24 15:15 09/22/24 15:10 09/22/24 15:15
Physical Exam
General: No Apparent Distress and Conversant
HEENT: PERRLA
Respiratory: Clear; No Wheezes
Cardiac: S1/S2 and Regular Rhythm
GI: Other (distended, no rebound or guarding, tender all 4 quadrants most pronounced RUQ )
Musculoskeletal: No Edema
Skin: Warm and Dry; No Rash
Neuro: AO x 3
Psych: Calm
Laboratory Results
-
09/22/24 12:44
09/22/24 12:44
Laboratory Results
Lactic Acid 2.8 mmol/L (0.7-2.0) H 09/22/24 12:44
Total Bilirubin 1.9 mg/dl (0.2-1.3) H 09/22/24 12:44
AST 2021 U/L (17-59) H* 09/22/24 12:44
ALT 989 U/L (0-50) H* 09/22/24 12:44
Alkaline Phosphatase 389 U/L (38-126) H 09/22/24 12:44
Lipase 107 U/L (23-300) 09/22/24 12:44
Data Reviewed
-
Diagnostic Radiology: Report Reviewed by me
Lab Data: Labs Reviewed by me
Impression/Plan
-
Mr. Darnell Salinas is a 78 yo man with hx atrial fibrillation on Eliquis, tachy-steve syndrome s/p PPM, HFpEF, CAD s/p PCI 11/14, essential HTN, HLD, CKD, DM, prostate CA s/p TURP presents to the ER with abdominal pain found to have significantly
elevated liver enzymes and finding of cholecystitis on CT with normal bile ducts.
Triage VS: T 98.9, P 100, RR 16, BP 119/64, SpO2 98%
LABS: WBC 16, Hg 14.8, PLT 192, Na 140, K+ 3.8, BUN 45, Cr 1.9 (baseline 1.7-2), Glucose 297, Lactate 2.8, T. Bili 1.9, AST 2020, ALT 989, Alk Phos 389
Abdomen/Pelvis CT
IMPRESSION:
The gallbladder appears borderline distended with cholelithiasis and surrounding stranding concerning for acute cholecystitis. Consider correlation with dedicated right upper quadrant ultrasound.
The urinary bladder is mildly distended. There is mild prostatomegaly with intravesicular protrusion. There is a 1.0 cm hypodense focus along the posterior aspect of the prostate which may represent a nodule, if there is known prostatitis a small
abscess could appear similar. Further evaluation with dedicated pelvic MRI may be considered.
Nonspecific 1.0 cm right para-aortic lymph node.
Bile Ducts: Within normal limits.
MAR: IVF, IV Zosyn, IV Dilaudid
Severe Sepsis 2/2 cholecystitis versus choledocholithiasis
Abdominal Pain
Severe transaminitis
-CT results above with finding of cholelithiasis; bile ducts within normal limits - passed stone?
-RUQ US ordered
-admit to telemetry
-Surgery and GI consult
-continue IV Zosyn
-IVF
-follow up blood cultures
-trend lactate and bolus as needed
- NPO pre-US, can likely start clears post
Paroxysmal Afib
-hold CONFECTIONERY MAKER Eliquis (last dose this morning)
CKD III
-creatinine at baseline. Dr. Lopes aware of patient's admission per patient request
-formal renal consult if renal function worsens
Abnormal prostate on CT
-UA without leukocytosis; no report of dysuria
-consider follow up imaging outpatient
CAD s/p PCI
-CONFECTIONERY MAKER aspirin, hold statin
Depression/Anxiety- CONFECTIONERY MAKER Lexapro
BPH - CONFECTIONERY MAKER Finasteride
IDDM
- will give lower dose of Tresiba here (30 units), adjust as needed
- ISS low
- hold CONFECTIONERY MAKER Jardiance and Mounjaro
HLD - hold CONFECTIONERY MAKER Statin in setting of elevated liver enzymes
DNR - discussed on admission
76 MINUTES spent on patient care
--- NOTE | 2024-09-22 15:38 | CON.GS ---
Consultation
-
Date/Time Consultation Performed: 09/22/24
Requesting Provider: Savita
Performing Provider: Lio
Reason for Consultation: ACC
Medical History
-
Chief Complaint: Abd pain
History of Present Illness:
78M with acute onset abd pain that began last night around 9PM. Diffuse abd pain initially that has migrated to the right side. Denies radiation of pain. Reports significant improvement in pain since onset. Endorses nausea, denies vomiting. Denies
f/c. Denies changes to stool/urine.
Past Medical History
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
Past Surgical History: Other (Cardiac (Pacemaker, stent RCA), Orthopedic and Other (Left foot ulceration with surgery))
Social History
Tobacco: Non-Smoker
Alcohol: None
Personal:
Living: With Family
Family History
Family History: Reviewed & Noncontributory
Allergies / Home Medications
Allergy/AdvReac Type Severity Reaction Status Date / Time
No Known Allergies Allergy Verified 09/22/24 12:12
�Medication �Instructions �Recorded �Confirmed �Type
cholecalciferol (vitamin D3) 50 1,000 unit PO DAILY Supplement 07/01/13 09/22/24 History
mcg (2,000 unit) capsule (Vitamin
D3)
allopurinol 300 mg tablet 300 mg PO DAILY Gout 07/02/13 09/22/24 History
pantoprazole 40 mg tablet,delayed 40 mg PO DAILY Gastrointestinal 10/04/18 09/22/24 History
release issue
finasteride 5 mg tablet 5 mg PO DAILY Urinary issue 10/25/21 09/22/24 History
nitroglycerin 0.4 mg sublingual 0.4 mg sublingual [id number] PRN 10/26/21 09/22/24 Rx
tablet chest pain #25 tabs
rosuvastatin 40 mg tablet 40 mg PO QPM #90 tabs 10/26/21 09/22/24 Rx
furosemide 40 mg tablet 40 mg PO MOWEFR Fluid 11/21/21 09/22/24 History
retention/Swelling
apixaban 5 mg tablet (Eliquis) 2.5 mg PO BID Blood clot 04/02/22 09/22/24 History
prevention/tx
triamcinolone acetonide 0.1 % 1 applic topical BIDPRN PRN ankle 04/02/22 09/22/24 History
topical cream cellulitis R leg
losartan 25 mg tablet 25 mg PO DAILY 01/23/23 09/22/24 History
aspirin 81 mg tablet,delayed 81 mg PO DAILY 09/22/24 09/22/24 History
release
cyanocobalamin (vitamin B-12) 1,000 mcg PO DAILY 09/22/24 09/22/24 History
1,000 mcg tablet
empagliflozin 25 mg tablet 25 mg PO DAILY 09/22/24 09/22/24 History
(Jardiance)
escitalopram oxalate 10 mg tablet 10 mg PO DAILY 09/22/24 09/22/24 History
(Lexapro)
insulin degludec 200 unit/mL (3 44 unit SC QPM 09/22/24 09/22/24 History
mL) subcutaneous pen (Tresiba
FlexTouch U-200 insulin)
tirzepatide 10 mg/0.5 mL 10 mg SC BORGES 09/22/24 09/22/24 History
subcutaneous pen injector
(Mounjaro)
Review of Systems
-
A 10 point review of systems was completed, and was negative except as per HPI.
Physical Exam
Vital Signs
Temp Pulse Resp BP Pulse Ox
97.6 F 94 24 143/68 93
09/22/24 13:07 09/22/24 15:15 09/22/24 15:15 09/22/24 15:10 09/22/24 15:15
09/21/24 09/22/24 09/23/24
06:59 06:59 06:59
Actual Weight 109.769 kg
Body Mass Index (BMI) 31.9
Lab Results
09/22/24 12:44
09/22/24 12:44
WBC 16.0 10^3/uL (4.8-10.8) H 09/22/24 12:44
Hgb 14.8 g/dL (13.0-18.0) 09/22/24 12:44
Hct 45.0 % (39.0-52.0) 09/22/24 12:44
Plt Count 192 10^3/uL (130-400) 09/22/24 12:44
Abs Immat Gran (auto) 0.1 10^3/uL (0-0.05) H 09/22/24 12:44
Neutrophils % 89.4 % (42.2-75.2) H 09/22/24 12:44
Physical Exam
General: Well Developed, Well Nourished and No Apparent Distress
GI: Soft, Non Distended and Tender (mild ttp to ruq without guarding)
Skin: Warm and Dry
Neuro: AO x 3
Psych: Calm
Data Reviewed
-
CT Scan: Image Personally Visualized and interpreted, Report Reviewed by me, Discussed with Physician, Discussed with Patient and Discussed with Family
Labs: Labs Reviewed by me, Discussed with Physician, Discussed with Patient and Discussed with Family
Assessment / Plan
-
78M with biliary colic vs ACC vs cholangitis
AFVSS, ttp to ruw on exam (mild), no icterus, no jaundice)
WBC 16K
Tbili 1.9, AST 2021, ALT 989, ALP [address]
CT with distended gb with mild surrounding stranding, stones noted, no ductal dilation
Eliquis last dose 30 am
Plan:
Hospitalist admission
Pt requests Nephrology involvement
Agree with GI consult given significant LFT elevations
Hold eliquis
Obtain RUQ US
IV abx
trend labs
NPO for now, IVF per Nephrology
DVT ppx
--- NOTE | 2024-09-22 16:14 | CON.GI ---
Addendum entered and electronically signed by Newton Crowley MD 09/23/24 09:17:
I saw and examined the patient.
The STAFF PHYSICIAN or PA's note was reviewed and I agree with the note.
Comment
This patient is seen on 09/23 at 6:30 in the morning. He is an 78-year-old man with a history of A-fib on Eliquis, [id number] diabetes, obesity who has a pacemaker. He was admitted with abdominal pain radiating at the top of his abdomen
bilaterally. In the ER he did have a CAT scan that question cholecystitis. An ultrasound done showed multiple stones in the gallbladder without evidence of true cholecystitis. He did have markedly elevated transaminases and an increase in
alkaline phosphatase. He did eat pizza the day before as well and noted some nausea after that.
abd: diffuse abdominal pain in upper abdomen
impression:
abd pain
leukocytosis
cholelithiasis likely choledocholithiasis
plan:
MRI/MRCP and if not able due to pacer EUS +/- ERCP
NPO
follow lfts which have come down
antibiotics
Original Note:
Consultation
-
Date/Time Consultation Requested: 09/22/24 1500
Date/Time Consultation Performed: 09/22/24 1615
Requesting Provider: Clarita Chavarria PA-C
Performing Provider: MILLA Wesley, Newton Crowley MD
Reason for Consultation: abdominal pain, increased LFT's
Medical History
Chief Complaint / HPI
Chief Complaint: abdominal pain
History of Present Illness:
Pt is an 78yo with hx afib on Eliquis, SSS, CHF, pacer for tachy/steve, NIDDM with recent start of Mounjaro , prostate CA with prior turp and urology follow, HTN, hyperlipidemia, depression gout, renal stones , low vitamin D level, obesity ,
metabolic syndrome, pulm HTN, pulm nodule, alport syndrome, b12 deficiency, carpel tunnel syndrome presents to ER today with abdominal pain with radiation to back. On admission CT concerned borderline distended gallbladder with cholelithiasis and
stranding concern for acute cholecystitis. Also noted bladder distention, prostatomegaly, prostate nodule and nonspecific para aortic lymph node. Labs on admisison WBC 16, BUN 45, creat 1.9, bili 1.9, AST 2020, ALT 989, alk phos 389.
At this time in review with pt and spouse ate Rosalie at 6-7 PM. He began with diffuse abdominal pain 01/02 with nausea and presented to ER for evaluation. Pt also has constipation with use of miralax daily. He denies issues with odynophagia,
dysphagia, GERD, vomiting, wt loss, diarrhea, or rectal bleeding.
06/18/17 EGD [place] - Normal esophagus.- Acute gastritis. Biopsied.- Normal duodenal bulb and second portion of the duodenum. Biopsied- Small hiatal hernia- The examination was otherwise normal
02/2025 colonoscopy [facility] - The examined portion of the ileum was normal. Stool at the hepatic flexure, in the ascending colon and in the cecum - Normal mucosa in the entire examined colon. Biopsied - The distal rectum and anal verge are normal
retroflexion view.- Non-bleeding internal hemorrhoids.
Past Medical History
Past Medical History: Arrhythmias (SSS, afib on eliquis, tachy/steve ), Cancer (prostate CA), CHF, HTN, Hypercholesterolemia, NIDDM, Renal Failure, Psychiatric (depression) and Other (gout, renal stones , low vitamin D level, obesity , metabolic
syndrome, pulm HTN, pulm nodule, alport syndrome, b12 deficiency, carpel tunnel syndrome)
Past Surgical History: Cardiac (pacer, CAD stent ) and Urological (TURP )
Social History
Tobacco: Non-Smoker
Alcohol: None
Drug: None
Personal:
Living: With Family
Employment: Retired
Family History
Family History: Other (no family hx GB problems mother uterine CA, father CAD, HTN, no family hx colon CA)
Allergies / Home Medications
Allergy/AdvReac Type Severity Reaction Status Date / Time
No Known Allergies Allergy Verified 09/22/24 12:12
�Medication �Instructions �Recorded
cholecalciferol (vitamin D3) 50 1,000 unit PO DAILY Supplement 07/01/13
mcg (2,000 unit) capsule (Vitamin
D3)
allopurinol 300 mg tablet 300 mg PO DAILY Gout 07/02/13
pantoprazole 40 mg tablet,delayed 40 mg PO DAILY Gastrointestinal 10/04/18
release issue
finasteride 5 mg tablet 5 mg PO DAILY Urinary issue 10/25/21
nitroglycerin 0.4 mg sublingual 0.4 mg sublingual [id number] PRN 10/26/21
tablet chest pain #25 tabs
rosuvastatin 40 mg tablet 40 mg PO QPM #90 tabs 10/26/21
furosemide 40 mg tablet 40 mg PO MOWEFR Fluid 11/21/21
retention/Swelling
apixaban 5 mg tablet (Eliquis) 2.5 mg PO BID Blood clot 04/02/22
prevention/tx
triamcinolone acetonide 0.1 % 1 applic topical BIDPRN PRN ankle 04/02/22
topical cream cellulitis R leg
losartan 25 mg tablet 25 mg PO DAILY 01/23/23
aspirin 81 mg tablet,delayed 81 mg PO DAILY 09/22/24
release
cyanocobalamin (vitamin B-12) 1,000 mcg PO DAILY 09/22/24
1,000 mcg tablet
empagliflozin 25 mg tablet 25 mg PO DAILY 09/22/24
(Jardiance)
escitalopram oxalate 10 mg tablet 10 mg PO DAILY 09/22/24
(Lexapro)
insulin degludec 200 unit/mL (3 44 unit SC QPM 09/22/24
mL) subcutaneous pen (Tresiba
FlexTouch U-200 insulin)
tirzepatide 10 mg/0.5 mL 10 mg SC BORGES 09/22/24
subcutaneous pen injector
(Mounjaro)
Review of Systems
-
History Source: Patient and Family
Constitutional: Reports Weight Gain
EENT: Reports No Symptoms
Respiratory: Reports No Symptoms
Cardiac: Reports No Symptoms
Abdomen/GI: Reports Abdominal Pain and Nausea
: Reports No Symptoms
Musculoskeletal: Reports No Symptoms
Skin: Reports No Symptoms
Neurological: Reports Weakness
Endocrine: Reports No Symptoms
Hematologic/Lymphatic: Reports No Symptoms
Vital Signs
Temp Pulse Resp BP Pulse Ox
97.6 F 94 24 143/68 93
09/22/24 13:07 09/22/24 15:15 09/22/24 15:15 09/22/24 15:10 09/22/24 15:15
Physical Exam
Exam
General: Other (elderly male pleasant and cooperative )
HEENT: Normocephalic and Anicteric
Respiratory: Clear
Cardiac: Regular Rhythm
GI: Soft, Non Distended and Tender (diffuse worse RUQ)
Musculoskeletal: No Clubbing and No Cyanosis
Skin: Warm and Dry
Neuro: Awake, Alert and AO x 3
Psych: Calm
Results
WBC 16.0 10^3/uL (4.8-10.8) H 09/22/24 12:44
Hgb 14.8 g/dL (13.0-18.0) 09/22/24 12:44
Hct 45.0 % (39.0-52.0) 09/22/24 12:44
MCV 85.7 fL (80.0-94.0) 09/22/24 12:44
Plt Count 192 10^3/uL (130-400) 09/22/24 12:44
Absolute Neuts (auto) 14.3 10^3/uL (1.4-6.5) H 09/22/24 12:44
Sodium 140 mmol/L (135-145) 09/22/24 12:44
Potassium 3.8 mmol/L (3.5-5.1) 09/22/24 12:44
Chloride 102 mmol/L (98-107) 09/22/24 12:44
Carbon Dioxide 24 mmol/L (22-30) 09/22/24 12:44
BUN 45 mg/dl (9-20) H 09/22/24 12:44
Creatinine 1.9 mg/dL (0.7-1.3) H 09/22/24 12:44
Calcium 9.4 mg/dl (8.4-10.2) 09/22/24 12:44
Total Bilirubin 1.9 mg/dl (0.2-1.3) H 09/22/24 12:44
AST 2021 U/L (17-59) H* 09/22/24 12:44
ALT 989 U/L (0-50) H* 09/22/24 12:44
Alkaline Phosphatase 389 U/L (38-126) H 09/22/24 12:44
Lipase 107 U/L (23-300) 09/22/24 12:44
Diagnostic Image Results:
09/22/24 CT Abd/pelvis W Iv Cont
The gallbladder appears borderline distended with cholelithiasis and surrounding stranding concerning for acute cholecystitis. Consider correlation with dedicated right upper quadrant ultrasound.
The urinary bladder is mildly distended. There is mild prostatomegaly with intravesicular protrusion. There is a 1.0 cm hypodense focus along the posterior aspect of the prostate which may represent a nodule, if there is known prostatitis a small
abscess could appear similar. Further evaluation with dedicated pelvic MRI may be considered.
Nonspecific 1.0 cm right para-aortic lymph node.
Prior GI Procedures:
06/18/17 EGD [place] - Normal esophagus.- Acute gastritis. Biopsied.- Normal duodenal bulb and second portion of the duodenum. Biopsied- Small hiatal hernia- The examination was otherwise normal bx neg hpylori, neg metaplasia
02/2015 colonoscopy [facility] - The examined portion of the ileum was normal. Stool at the hepatic flexure, in the ascending colon and in the cecum - Normal mucosa in the entire examined colon. Biopsied - The distal rectum and anal verge are normal
retroflexion view.- Non-bleeding internal hemorrhoids. bx neg colitis, microscopic colitis
Assessment / Plan
-
Pt is an 78yo with hx afib on Eliquis, SSS, CHF, pacer for tachy/steve, NIDDM with recent start of Mounjaro , prostate CA with prior turp and urology follow, HTN, hyperlipidemia, depression gout, renal stones , low vitamin D level, obesity ,
metabolic syndrome, pulm HTN, pulm nodule, alport syndrome, b12 deficiency, carpel tunnel syndrome presents to ER today with abdominal pain with radiation to back. On admission CT concerned borderline distended gallbladder with cholelithiasis and
stranding concern for acute cholecystitis. Also noted bladder distention, prostatomegaly, prostate nodule and nonspecific para aortic lymph node. Labs on admisison WBC 16, BUN 45, creat 1.9, bili 1.9, AST 2020, ALT 989, alk phos 389. At this time
in review with pt and spouse nisha Wiggins at 6-7 PM. He began with diffuse abdominal pain 8/10 with nausea and presented to ER for evaluation
-sudden onset of abdominal pain
-concern for sepsis on admission
-elevated LFT's with marked elevated AST
-NIDDM with recent start of Mounjaro with wt gain
-Afib on eliquis
-leukocytosis
-CKD
other med problems:
-SSS
-CHF
-pacer for tachy/steve syndrome
-CAD with prior stent
-prostate CA prior turp urology follow with nodule noted on CT
-HTN
-hyperlipidemia
-depression
-gout
-renal stones
-vitamin D
-obesity
-Pulm HTN
-pulm nodule
-alport syndrome
-B12 deficiency
-carpel tunnel syndrome
PLAN:
etiology of abdominal pain related to cholecystitis, choledocholithiasis with elevated LFT's vs other
await US abdomen
if work up unrevealing consider liver serology with marked elevated AST
trend LFT's
check CK level
may need MRI- per family pacer may be compatible
NPO
s/p surgical eval
Eliquis last dose 430 AM
-
-
Thank you for consultation and allowing me to participate in the patient's care. Please call the wildlife conservationist GI physician during the after hours with any questions or concerns.
--- NOTE | 2024-09-22 16:44 | EDRN ---
this RN called the receiving unit and notified them that paper report was going to be tubed up
[2024-09-22 17:30] LABS: Creatine Phosphokinase 63 U/L (55-170)
[2024-09-22 17:58] LABS: Glucose - Point of Care 214 mg/dl (70-99)
[2024-09-22] MEDS: NOVOLOG FLEXPEN-LOW RESISTANCE 2 UNITS SC (18:03)
[2024-09-22 18:20] LABS: Lactic Acid 2.3 mmol/L (0.7-2.0)
[2024-09-22] MEDS: LANTUS 0.3 UNITS SC (18:42)
--- NOTE | 2024-09-22 19:24 | PTCARENOTE ---
1730- Pt received from via [id number]. Pt is [facility] w/ [employer].
[2024-09-22] MEDS: DESENEX/MITRAZOL/ZEASORB 1 APPLIC TOPICAL (20:30)
--- NOTE | 2024-09-22 21:00 | PTCARENOTE ---
Pt brought in pts CPAP from home. MILLA Torres notified. New order in for CPAP.
[2024-09-22 21:37] LABS: Glucose - Point of Care 201 mg/dl (70-99)
--- NOTE | 2024-09-22 22:26 | RESPNOTE ---
pt found asleep and on home CPAP already. Attempted to wake enough to sign waiver, however was unable to focus enough to sign. The unit appeared in good condition, and working properly. Will have Mr. Salinas siglana tomorrow when he is more awake
[2024-09-22 23:43] LABS: Lactic Acid 1.5 mmol/L (0.7-2.0)
[2024-09-23] VITALS (9 sets, daily range): BP systolic 76–105; BP diastolic 40–58; BMI 31.7
[2024-09-23 00:28] LABS: Glucose - Point of Care 192 mg/dl (70-99)
[2024-09-23] MEDS: DILAUDID 0.5 MG IV ×3 (00:40→12:45)
[2024-09-23] MEDS: NOVOLOG FLEXPEN-LOW RESISTANCE 1 UNITS SC ×3 (00:40→17:54)
[2024-09-23] MEDS: ZOSYN 50 IV ×4 (03:04→22:53)
[2024-09-23 05:59] LABS: Glucose - Point of Care 169 mg/dl (70-99)
[2024-09-23] MEDS: NSS 1000 IV ×2 (06:03→22:53)
[2024-09-23] MEDS: PROTONIX 40 MG PO (07:59)
[2024-09-23] MEDS: COZAAR 25 MG PO (08:00)
[2024-09-23] MEDS: ASPIR LOW (ENTERIC COATED) 81 MG PO (08:00)
[2024-09-23] MEDS: ZYLOPRIM 300 MG PO (08:00)
[2024-09-23] MEDS: LEXAPRO 10 MG PO (08:00)
[2024-09-23] MEDS: PROSCAR 5 MG PO (08:00)
[2024-09-23] MEDS: DESENEX/MITRAZOL/ZEASORB 1 APPLIC TOPICAL ×2 (08:05→20:00)
[2024-09-23 08:09] LABS: % Basophils 0.1 % (0-2); % Immature Granulocytes 0.6 % (0-0.5); % Lymphocytes 2.1 % (20.5-51.1); % Monocytes 6.3 % (1.7-9.3); % Neutrophils 90.9 % (42.2-75.2); Absolute Immature Granulocytes 0.1 10^3/uL (0-0.05); Absolute Lymphocytes 0.4 10^3/uL (1.2-3.4); Absolute Monocytes 1.3 10^3/uL (0.1-0.6); Absolute Neutrophils 19.2 10^3/uL (1.4-6.5); Hematocrit 41.7 % (39.0-52.0); Hemoglobin 13.2 g/dL (13.0-18.0); Mean Corp Hgb Conc. 31.7 g/dL (33.0-37.0); Mean Corpuscular Hgb 28.1 pg (27.0-31.0); Mean Corpuscular Volume 88.9 fL (80.0-94.0); Mean Platelet Volume 11.1 fL (7.4-10.4); Nucleated Red Blood Cells % 0 % (-); Platelet Count 168 10^3/uL (130-400); Red Blood Cell Count 4.69 10^6/uL (4.70-6.10); Red Cell Dist. Width 15.7 % (11.5-14.5); White Blood Cell Count 21.1 10^3/uL (4.8-10.8)
[2024-09-23 08:51] LABS: ALT (SGPT) 732 U/L (0-50); Albumin 2.9 g/dl (3.5-5.0); Alkaline Phosphatase 280 U/L (38-126); Blood Urea Nitrogen 47 mg/dl (9-20); Calcium 8.6 mg/dl (8.4-10.2); Carbon Dioxide 26 mmol/L (22-30); Chloride 107 mmol/L (98-107); Estimated Creatinine Clearance 30 ml/min; Glucose 187 mg/dl (70-99); Magnesium 2.3 mg/dl (1.6-2.3); Sodium 144 mmol/L (135-145); Total Bilirubin 1.6 mg/dl (0.2-1.3); Total Protein 5.3 g/dl (6.3-8.2); eGFR 25.34
[2024-09-23 09:02] LABS: AST (SGOT) 871 U/L (17-59)
--- NOTE | 2024-09-23 09:12 | W.PN.GI.CBS2 ---
Today's Communication / Plan
-
MRI/MRCP (as long as pacer compatible)
Assessment / Plan
-
Pt is an 78yo with hx afib on Eliquis, SSS, CHF, pacer for tachy/steve, NIDDM with recent start of Mounjaro , prostate CA with prior turp and urology follow, HTN, hyperlipidemia, depression gout, renal stones , low vitamin D level, obesity ,
metabolic syndrome, pulm HTN, pulm nodule, alport syndrome, b12 deficiency, carpel tunnel syndrome presents to ER today with abdominal pain with radiation to back. On admission CT concerned borderline distended gallbladder with cholelithiasis and
stranding concern for acute cholecystitis. Also noted bladder distention, prostatomegaly, prostate nodule and nonspecific para aortic lymph node. Labs on admisison WBC 16, BUN 45, creat 1.9, bili 1.9, AST 2020, ALT 989, alk phos 389. At this time
in review with pt and spouse nisha Wiggins at 6-7 PM. He began with diffuse abdominal pain / with nausea and presented to ER for evaluation
-sudden onset of abdominal pain
-concern for sepsis on admission
-elevated LFT's with marked elevated AST
-NIDDM with recent start of Mounjaro with wt gain
-Afib on eliquis
-leukocytosis
-CKD
other med problems:
-SSS
-CHF
-pacer for tachy/steve syndrome
-CAD with prior stent
-prostate CA prior turp urology follow with nodule noted on CT
-HTN
-hyperlipidemia
-depression
-gout
-renal stones
-vitamin D
-obesity
-Pulm HTN
-pulm nodule
-alport syndrome
-B12 deficiency
-carpel tunnel syndrome
PLAN:
needs MRI/MRCP to evaluate for choledocholithiasis
npo
surgery following
lfts improved and likely stone passing
Subjective
Subjective
Date of Service: September 23, 2024
Pt with ongoing pain.
Objective
Data Reviewed
Laboratory Data:
Laboratory Results
09/23/24 07:18
09/23/24 07:18
Laboratory Results
Magnesium 2.3 mg/dl (1.6-2.3) 09/23/24 07:18
Total Bilirubin 1.6 mg/dl (0.2-1.3) H 09/23/24 07:18
AST 871 U/L (17-59) H* 09/23/24 07:18
ALT 732 U/L (0-50) H* 09/23/24 07:18
Alkaline Phosphatase 280 U/L (38-126) H 09/23/24 07:18
Lipase 107 U/L (23-300) 09/22/24 12:44
Vital Signs and I&O:
Vital Signs
Temp Pulse Resp BP Pulse Ox
98.2 F 82 16 105/55 96
09/23/24 07:43 09/23/24 07:43 09/23/24 07:43 09/23/24 07:43 09/23/24 07:43
Physical Exam
Physical Exam
GI: Soft and Tender (upper abdomen)
Neuro: Non Focal
--- NOTE | 2024-09-23 10:36 | W.PN.HOSP.TC ---
Today's Communication/Plan
-
Continue antibiotics
Await cultures
MRCP
ID consult
Stop losartan
IV fluids
Labs in the morning
Assessment / Plan
Assessment / Plan
Gen-AAOx3, NAD
HEENT-NC, AT, anicteric, clear oral mm
Neck-supple
CV-reg, no M, +S1/S2
Lungs-clear B/L
Abd-soft, tender right upper quadrant
Ext-no edema
Musculoskeletal-no cyanosis, clubbing
Skin-warm and dry
Neuro-grossly non-focal
Psych-calm, cooperative
Sepsis due to cholelithiasis -rule out choledocholithiasis, cholecystitis. Rising WBC count noted. Positive blood cultures noted, gram-positive cocci in pairs and chains. Continue IV Zosyn, add vancomycin. Consult ID. Hemodynamically stable.
Lactic acidosis due to sepsis, present on admission. Now improved.
MRCP pending. GI and general surgery following. Currently NPO.
DEQUAN on CKD 3b -etiology of DEQUAN possibly due to contrast-induced nephropathy. Sepsis can also contribute. Component of urinary retention noted. Monitor bladder scans. Add Flomax. Continue IV fluid support. Trend labs. Creatinine 2.5 today,
baseline likely around 1.6.
Hold losartan.
DM2 with hyperglycemia -hemoglobin A1c 8.9%, 09/06/2024. Glucose 187 this morning, 201 last night. Received 30 units of Lantus last night.
At home he is on insulin degludec 44 units at bedtime, Jardiance 25 mg daily, tirzepatide 10 mg subcutaneously every Friday.
In the hospital he is on Lantus 30 units at bedtime, low resistance NovoLog scale.
Chronic heart failure preserved EF -stable.
CAD -stable.
Paroxysmal atrial fibrillation -last dose of Eliquis was 09/22 AM.
Essential hypertension
Hyperlipidemia -rosuvastatin.
History of prostate cancer -s/p TURP.
History of tachybradycardia syndrome -s/p pacemaker.
Diabetic peripheral neuropathy
BPH
Gout -allopurinol.
Obesity due to excess calories
DNR
Updated at the bedside.
Anticipated Discharge: > 48 hours
Subjective/Interval History
-
Date of Service: September 23, 2024
Patient seen and examined. Complaining of abdominal pain.
Objective Data
-
Labs:
Laboratory Results
09/23/24
07:18
WBC 21.1 H
Hgb 13.2
Hct 41.7
Plt Count 168
Sodium 144
Potassium 4.0
Chloride 107
Carbon Dioxide 26
BUN 47 H
Creatinine 2.5 H
Glucose 187 H
Calcium 8.6
Total Bilirubin 1.6 H
AST 871 H*
ALT 732 H*
Alkaline Phosphatase 280 H
Vital Signs:
Vital Signs
Temp Pulse Resp BP Pulse Ox
98.2 F 82 16 105/55 96
09/23/24 07:43 09/23/24 07:43 09/23/24 07:43 09/23/24 07:43 09/23/24 07:43
I&O
09/22/24 09/23/24 09/24/24
06:59 06:59 06:59
Intake Total 50 / 50
Balance 50 / 50
Review of Systems
-
History Source: Patient
All other systems: Reviewed and negative
--- NOTE | 2024-09-23 10:52 | W.PN.GS2 ---
Today's Communication / Plan
-
-- MRI abdomen
-- Continued to Hold Eliquis (last dose 09/22) would hold for 48 hours given acute on chronic kidney injury (worse today)
-- Timing of cholecystectomy TBD based on above
Assessment / Plan
-
Patient is an 78 yo M p/w choledocholithiasis
Based on degree of LFT and bilirubin elevation most likely choledocholithiasis. MRI today to confirm passed versus persistent stone. Downtrending of LFTs and bilirubin, uptrending of WBC. Ultrasound without any concerning findings for
cholecystitis. CT scan with distention of the gallbladder and some mild surrounding stranding. Eliquis currently on hold and awaiting 48-hour washout given DEQUAN (acute on chronic).
The natural history and pathophysiology of biliary and stone disease was discussed. Anatomy was reviewed utilizing pictorial images. Workup thus far and going forward was reviewed. Role of cholecystectomy was reviewed. GI consult noted. Plan
for MRI today. Timing of cholecystectomy TBD. All questions answered.
-- MRI abdomen
-- NPO, IVF
-- Abx: Zosyn, defer need for Vancomycin to Hospitalist
-- Continued to Hold Eliquis (last dose 09/22) would hold for 48 hours given acute on chronic kidney injury (worse today)
-- Timing of cholecystectomy TBD based on above
Subjective Data
-
Date of Service: September 23, 2024
Persistent RUQ and epigastric abdominal pain. Mild nausea, no emesis has improved. Denies any jaundice, pale stools, or tea colored urine. Denies any prior attacks of similar abdominal discomfort.
Objective Data
-
Intake and Output
09/22/24 09/23/24 09/24/24
06:59 06:59 06:59
Intake Total 50 / 50
Balance 50 / 50
Intake:
IV piggybacks 50 / 50
Other:
Number of approximated MODERATE 3
amounts of urine
Vital Signs
Temp Pulse Resp BP Pulse Ox
98.2 F 82 16 105/55 96
09/23/24 07:43 09/23/24 07:43 09/23/24 07:43 09/23/24 07:43 09/23/24 07:43
Lab Results
09/23/24 07:18
09/23/24 07:18
Calcium 8.6 mg/dl (8.4-10.2) 09/23/24 07:18
Magnesium 2.3 mg/dl (1.6-2.3) 09/23/24 07:18
Total Bilirubin 1.6 mg/dl (0.2-1.3) H 09/23/24 07:18
AST 871 U/L (17-59) H* 09/23/24 07:18
ALT 732 U/L (0-50) H* 09/23/24 07:18
Alkaline Phosphatase 280 U/L (38-126) H 09/23/24 07:18
Total Protein 5.3 g/dl (6.3-8.2) L D 09/23/24 07:18
Albumin 2.9 g/dl (3.5-5.0) L 09/23/24 07:18
Physical Exam
-
Gen: NAD
Resp: Increased WOB, deconditioned at baseline
Abd: soft, tender in RUQ, morbid obesity (difficult to assess distension), no diffuse peritonitis
Patient has a santana catheter: No
Patient has a central line: No
[2024-09-23] MEDS: FLOMAX 0.4 MG PO (11:06)
[2024-09-23] MEDS: VANCOCIN 540 MG IV (11:30)
--- NOTE | 2024-09-23 11:30 | PHA.VAN.IN ---
Assessment
- Assessment
Renal Function: Appears elevated from baseline (SCR 2.5 vs ~1.6)
Concomitant Antimicrobials: piperacillin/tazobactam
Plan
- Plan
Initial / Loading Dose: 2000mg - administration pending
Maintenance Regimen: dosing by level
Monitoring: random 09/24 06
Pharmacokinetics Vancomycin I
- -
Patient Age: 78
Patient Sex: Male
Vancomycin Day #: 1
Indication: Bacteremia
Requesting Provider: Dr. Villegas
Pertinent Antimicrobial Allergies:
NKDA
Height / Weight:
Height 6 ft 1 in
Actual Weight 108.817 kg
Pertinent Past Medical History: BMI ~32
- Vital Signs / Lab Results
Temp Pulse Resp BP Pulse Ox
98.4 F 84 18 99/58 95
09/23/24 10:59 09/23/24 10:59 09/23/24 10:59 09/23/24 11:12 09/23/24 10:59
Lab Results - Hematology
09/22/24 09/23/24
12:44 07:18
WBC 16.0 H 21.1 H
Lab Results - Chemistry
09/22/24 09/23/24
12:44 07:18
BUN 45 H 47 H
Creatinine 1.9 H 2.5 H
Estimated Creat Clear 40 30
Albumin 3.9 2.9 L
09/22/24 09/22/24 09/22/24
12:44 18:01 23:25
Lactic Acid 2.8 H 2.3 H 1.5
09/23/24
06:00
Lactic Acid Cancelled
Lab Results - Urine
09/22/24
12:44
Urine Nitrite (Reflex) Negative
Leukocyte Esterase Rfl Negative
Urine WBC (Reflex) 3-5
Ur Squamous Epith Cells 0-2
Urine Bacteria (Reflex) Few A
Microbiology Results
09/22/24 15:11 Blood Culture - Preliminary
Blood/Venous Positive culture in progress
Gram Stain - Preliminary
09/22/24 15:11 Blood Culture - Preliminary
Blood/Venous Positive culture in progress
Gram Stain - Preliminary
[2024-09-23 11:35] LABS: Glucose - Point of Care 205 mg/dl (70-99)
[2024-09-23] MEDS: NOVOLOG FLEXPEN-LOW RESISTANCE 2 UNITS SC (11:37)
[2024-09-23] MEDS: NSS 500 IV ×2 (11:43→19:56)
--- NOTE | 2024-09-23 15:20 | CM ---
Alert awake oriented patient who lives with his Kassidy who lives in a 2 story home with 0 step to enter and 0 steps to bed and bathroom. He is assisted in activities of daily living.Pt will need PT OT for dc planning.
[facility] hx / No SNF history
Pharmacy [facility] [address] Meza
PLAN Will need PT OT for dc planning
[2024-09-23 17:26] LABS: Direct Bilirubin 0.8 mg/dl (0.0-0.4)
[2024-09-23 17:50] LABS: Glucose - Point of Care 159 mg/dl (70-99)
[2024-09-23] MEDS: LANTUS 0.3 UNITS SC (17:53)
--- NOTE | 2024-09-23 18:01 | CON.ID ---
Consultation
-
Date/Time Consultation Requested: 09/23/2024 0820
Date/Time Consultation Performed: 09/23/2024 1745
Requesting Provider: Dr. Villegas
Performing Provider: Dr. Whitehead
Reason for Consultation: Bacteremia
Chief Complaint / Past History
History of Present Illness
Darnell Salinas is an 78-year-old male being evaluated at the request of Dr. Villegas in regards to bacteremia. History is obtained from chart review, along with patient interview.
The patient has a significant past medical history of A-fib, diabetes and renal insufficiency and reports he was feeling well until 09/21 when he developed right upper quadrant abdominal discomfort. He notes that the discomfort was diffuse, but did
not radiate to his back. He reports some nausea, but no vomiting. He did not have any fevers or chills. The pain continued and he came to the emergency room for further evaluation. Here he was found to have an elevated white count. CT imaging
suggested acute cholecystitis. Blood cultures were obtained, which are now positive for gram-positive cocci, and Infectious Diseases is asked to comment upon further antimicrobial management.
At the present time he reports ongoing discomfort (01/02), with the pain being sharp in quality. He denies any current fevers. He admits to ongoing nausea, but no vomiting.
Past History
Additional Past Medical History:
A-fib
CAD
Hx squamous cell CA of the face
CHF
HTN
HLD
DM
CKD
Gout
Hx right foot wound
Additional Past Surgical History:
PPM placement
PCI with stenting
Left foot surgery
Allergy History:
No Known Allergies Allergy (Verified 09/22/24 12:12)
Medications Reviewed: Yes
Current Antibiotics:
Vancomycin
Zosyn 3.375 g IV every 6 hours
Social History
Tobacco: Non-Smoker
Alcohol: None
Drug: None
Personal:
Living: With Family
Employment: Retired
Review of Systems
Vital Signs
Temp Pulse Resp BP Pulse Ox
97.4 F 86 14 92/51 93
09/23/24 15:26 09/23/24 15:26 09/23/24 15:26 09/23/24 15:26 09/23/24 15:26
Physical Exam
Physical Exam
Constitutional: No Acute Distress, Comfortable, Chronically Ill and Non-toxic
Eyes: Pupils Equal, Pupils Round, No Conjunctival Hemorrhage and Sclera Anicteric
Oral: No Thrush and No Ulcers
Cardiovascular: Regular Rate and S1/S2; Negative S3/S4
Pulmonary: Clear; Negative Wheezes, Rales or Rhonchi
Gastrointestinal: Soft, Tender, Distended, Normal Bowel Sounds, No Rebound and No Guarding
Extremities: Edema; Negative Cyanosis or Erythema
Skin: Warm and Dry; Negative Rash or Jaundice
Neurological: Awake and Alert
Psychological: Calm
Lab / Diagnostic Study Results
09/23/24 07:18
09/23/24 07:18
Abs Immat Gran (auto) 0.1 10^3/uL (0-0.05) H 09/23/24 07:18
Absolute Neuts (auto) 19.2 10^3/uL (1.4-6.5) H 09/23/24 07:18
Absolute Lymphs (auto) 0.4 10^3/uL (1.2-3.4) L 09/23/24 07:18
Absolute Monos (auto) 1.3 10^3/uL (0.1-0.6) H 09/23/24 07:18
Absolute Basos (auto) 0.0 10^3/uL (0-0.2) 09/23/24 07:18
Immature Gran % 0.6 % (0-0.5) H 09/23/24 07:18
Neutrophils % 90.9 % (42.2-75.2) H 09/23/24 07:18
Lymphocytes % 2.1 % (20.5-51.1) L 09/23/24 07:18
Monocytes % 6.3 % (1.7-9.3) 09/23/24 07:18
Eosinophils % 0.0 % (0-6) 09/23/24 07:18
Basophils % 0.1 % (0-2) 09/23/24 07:18
Lactic Acid Cancelled 09/23/24 06:00
Ur Squamous Epith Cells 0-2 /LPF (Few) 09/22/24 12:44
Microbiology Results
Micro:
09/23/24 11:03 Blood Culture - Pending
Blood/Venous
09/23/24 09:36 Blood Culture - Pending
Blood/Venous
09/22/24 15:11 Blood Culture - Preliminary
Blood/Venous Positive culture in progress
Gram Stain - Preliminary
09/22/24 15:11 Blood Culture - Preliminary
Blood/Venous Positive culture in progress
Gram Stain - Preliminary
Imaging:
09/22/24 Abdominal ultrasound: Numerous small gallstones. Gallbladder wall thickness is top normal. No cholecystic fluid. Negative sonographic Hoyos sign.
09/22/2024 CT abdomen/pelvis: Gallbladder appears borderline distended with cholelithiasis and surrounding stranding concerning for acute cholecystitis. Urinary bladder is mildly distended. There is mild prostamegaly with intravesicular protrusion.
Please see full dictation for additional detail.
Assessment / Plan
Leukocytosis
Bacteremia (GPC chains)
Acute cholecystitis +/- ascending cholangitis
DEQUAN on CKD
Elevated bilirubin
Transaminitis
A-fib
CAD
Hx squamous cell CA of the face
CHF
HTN
HLD
DM
Renal insufficiency
Gout
Recommendations:
Continue with empiric Zosyn and Vanco for the present..
Follow vancomycin levels closely to prevent nephrotoxicity
Repeat blood cultures have been obtained; following for clearance.
Await final ID of positive blood cultures to guide further antimicrobial selection and potential de-escalation.
Await abdominal MRI and eventual possible cholecystectomy.
Continue with supportive care.
Monitor white count and temperature curve.
[2024-09-23 19:03] LABS: Hepatitis B Surface Antigen Negative (Negative)
[2024-09-23 19:10] LABS: Hepatitis A IgM Antibody Negative (Negative); Hepatitis B Core Ab, IgM Negative (Negative)
[2024-09-23 19:21] LABS: Hepatitis B Core Ab, Total Negative (Negative); Hepatitis B Surface Antibody Negative; Hepatitis C Antibody Negative (Negative)
[2024-09-23] MEDS: ProAmatine 5 MG PO (19:49)
[2024-09-24] VITALS (47 sets, daily range): BP systolic 83–139; BP diastolic 36–81; BMI 33.5
[2024-09-24 01:10] LABS: Glucose - Point of Care 135 mg/dl (70-99)
[2024-09-24] MEDS: NOVOLOG FLEXPEN-LOW RESISTANCE SC ×4 (01:15→17:49)
[2024-09-24] MEDS: ZOSYN 50 IV ×3 (04:23→16:18)
[2024-09-24 06:02] LABS: Vancomycin Random 17.7 ug/ml
[2024-09-24 06:12] LABS: % Basophils 0.2 % (0-2); % Eosinophils 0.2 % (0-6); % Immature Granulocytes 0.7 % (0-0.5); % Lymphocytes 2.1 % (20.5-51.1); % Monocytes 5.2 % (1.7-9.3); % Neutrophils 91.6 % (42.2-75.2); Absolute Immature Granulocytes 0.1 10^3/uL (0-0.05); Absolute Lymphocytes 0.4 10^3/uL (1.2-3.4); Absolute Monocytes 0.9 10^3/uL (0.1-0.6); Hematocrit 39.7 % (39.0-52.0); Hemoglobin 12.5 g/dL (13.0-18.0); Mean Corp Hgb Conc. 31.5 g/dL (33.0-37.0); Mean Corpuscular Hgb 28.3 pg (27.0-31.0); Mean Corpuscular Volume 89.8 fL (80.0-94.0); Mean Platelet Volume 11.7 fL (7.4-10.4); Nucleated Red Blood Cells % 0 % (-); Platelet Count 170 10^3/uL (130-400); Red Blood Cell Count 4.42 10^6/uL (4.70-6.10); Red Cell Dist. Width 15.9 % (11.5-14.5); White Blood Cell Count 16.4 10^3/uL (4.8-10.8)
[2024-09-24 06:29] LABS: Glucose - Point of Care 125 mg/dl (70-99)
[2024-09-24 06:47] LABS: ALT (SGPT) 479 U/L (0-50); AST (SGOT) 363 U/L (17-59); Albumin 2.8 g/dl (3.5-5.0); Alkaline Phosphatase 304 U/L (38-126); Blood Urea Nitrogen 59 mg/dl (9-20); Calcium 8.1 mg/dl (8.4-10.2); Carbon Dioxide 20 mmol/L (22-30); Chloride 108 mmol/L (98-107); Estimated Creatinine Clearance 21 ml/min; Glucose 113 mg/dl (70-99); Potassium 3.9 mmol/L (3.5-5.1); Sodium 145 mmol/L (135-145); Total Bilirubin 1.4 mg/dl (0.2-1.3); Total Protein 5.3 g/dl (6.3-8.2); eGFR 16.36
--- NOTE | 2024-09-24 09:13 | PHA.VAN.FU ---
Vancomycin Assessment / Plan
- Assessment
Renal Function: SCR Increasing
WBC's are: Trending Down
In the past 24 hrs, patient has been: Afebrile
Concomitant Antimicrobials: piperacillin/tazobactam
- Assessment - Therapeutic Drug Monitoring
Random Level: 17.7 - drawn ~17.5H after 2000mg loading dose
- Dosing Plan
Dosing by Level: Hold off on dosing today
- Monitoring Plan
Random Level: 09/25 06
- Follow Up
Pharmacy will continue to follow.
Vancomycin Follow UP
- -
Patient Age: 78
Patient Sex: Male
Vancomycin Day #: 2
Indication: Bacteremia
Requesting Provider: Dr. Villegas / [facility]
Pertinent Antimicrobial Allergies:
NKDA
Height / Weight:
Height 6 ft 1 in
Actual Weight 108.817 kg
Pertinent Past Medical History: BMI ~32, DM, CKD
- Vital Signs / Lab Results
Temp Pulse Resp BP Pulse Ox
97.6 F 86 16 123/63 99
09/24/24 07:30 09/24/24 07:30 09/24/24 07:30 09/24/24 07:30 09/24/24 07:30
Lab Results - Hematology
09/22/24 09/23/24 09/24/24
12:44 07:18 05:06
WBC 16.0 H 21.1 H 16.4 H
Lab Results - Chemistry
09/22/24 09/23/24 09/24/24
12:44 07:18 05:06
BUN 45 H 47 H 59 H
Creatinine 1.9 H 2.5 H 3.6 H
Estimated Creat Clear 40 30 21
Albumin 3.9 2.9 L 2.8 L
09/22/24 09/22/24 09/22/24
12:44 18:01 23:25
Lactic Acid 2.8 H 2.3 H 1.5
09/23/24
06:00
Lactic Acid Cancelled
Microbiology Results
09/22/24 15:11 Blood Culture - Preliminary
Blood/Venous Positive culture in progress
Gram Stain - Preliminary
09/22/24 15:11 Blood Culture - Preliminary
Blood/Venous Positive culture in progress
Gram Stain - Preliminary
Therapeutic Drug Monitoring
Random Vancomycin 17.7 ug/ml 09/24/24 05:06
[2024-09-24] MEDS: PROTONIX 40 MG PO (09:28)
[2024-09-24] MEDS: PROSCAR 5 MG PO (09:29)
[2024-09-24] MEDS: ZYLOPRIM 300 MG PO (09:29)
[2024-09-24] MEDS: LEXAPRO 10 MG PO (09:29)
[2024-09-24] MEDS: DESENEX/MITRAZOL/ZEASORB 1 APPLIC TOPICAL ×2 (09:29→19:55)
[2024-09-24] MEDS: ASPIR LOW (ENTERIC COATED) 81 MG PO (09:29)
[2024-09-24] MEDS: FLOMAX 0.4 MG PO (09:29)
--- NOTE | 2024-09-24 09:51 | W.PN.GS2 ---
Addendum entered and electronically signed by Aries Vaca MD 09/24/24 10:36:
I saw and examined the patient.
The Podiatric Aide's note was reviewed and I agree with the note.
Comment: Feels clinically improved, less pain. AFVSS. His LFTs have improved. WBC trending down. Exam improved, mod ttp to RUQ. MRI delayed due to concerns with pacer. Pacer confirmed MRI compatible. However given today is Friday, if
choledocholithiasis is found, unlikely to get ERCP before Friday with surgery to follow.Offered alternative plan of OR today for RAL CCY with cholangiogram, given his eliquis should be adequately washed out by now. Risks, benefits complications and
alternatives discussed in detail including but not limited to pain, bleeding, injury to intra-abdominal structures, need for ERCP postoperatively, need for drain, conversion to open, infection and the pt verbalized understanding and asked that we
proceed to OR today. Added to schedule.
Original Note:
Today's Communication / Plan
-
OR today
Assessment / Plan
-
Patient is an 78 yo M p/w likely choledocholithiasis
Ultrasound without any concerning findings for cholecystitis. CT scan with distention of the gallbladder and some mild surrounding stranding. LFT's elevated on presentation.
MRI ordered but not done as of yet d/t coordination regarding his ICD
Eliquis has been on hold since 09/22
Worsening renal function with Cr of 3.6, otherwise, improvement in Leukocytosis and LFT's trending back down
?passage of stone given his improving lfts/symptoms
Bacteremia: Gram positive cocci in 2 sets, final ID pending, NGTD on repeat cultures
-- D/W GI team to coordinate care, will plan OR today for lap yg with intraop cholangiogram
-- Cancel MRI given plans for cholangiogram in OR
-- NPO, IVF
-- Abx as per primary team
-- Continue to hold Eliquis (last dose 09/22), anticipate this will need to be held for the first 72h post operatively
Subjective Data
-
Date of Service: September 24, 2024
Patient seen and examined at bedside with Dr. Vaca. Pain gradually improving and is less generalized. Localized mostly to the RUQ. Feels better overall.
Objective Data
-
Intake and Output
09/23/24 09/24/24 09/25/24
06:59 06:59 06:59
Intake Total 1320 / 1320
Balance 1320 / 1320
Intake:
IV fluids (Total) 720 / 720
IV piggybacks 600 / 600
Other:
Number of approximated MODERATE 3 2 2
amounts of urine
Vital Signs
Temp Pulse Resp BP Pulse Ox
97.6 F 86 16 123/63 99
09/24/24 07:30 09/24/24 07:30 09/24/24 07:30 09/24/24 07:30 09/24/24 07:30
Lab Results
09/24/24 05:06
09/24/24 05:06
Calcium 8.1 mg/dl (8.4-10.2) L 09/24/24 05:06
Magnesium 2.3 mg/dl (1.6-2.3) 09/23/24 07:18
Total Bilirubin 1.4 mg/dl (0.2-1.3) H 09/24/24 05:06
Direct Bilirubin 0.8 mg/dl (0.0-0.4) H 09/23/24 07:18
AST 363 U/L (17-59) H 09/24/24 05:06
ALT 479 U/L (0-50) H 09/24/24 05:06
Alkaline Phosphatase 304 U/L (38-126) H 09/24/24 05:06
Total Protein 5.3 g/dl (6.3-8.2) L 09/24/24 05:06
Albumin 2.8 g/dl (3.5-5.0) L 09/24/24 05:06
Physical Exam
-
Gen: NAD
Abd: soft, tender in RUQ, morbid obesity (difficult to assess distension), no diffuse peritonitis
Patient has a santana catheter: No
Patient has a central line: No
--- NOTE | 2024-09-24 10:08 | W.PN.HOSP.TC ---
Today's Communication/Plan
-
Bladder scan
Urology consult
Continue IV fluids
OR today
Assessment / Plan
Assessment / Plan
Gen-AAOx3, NAD
HEENT-NC, AT, anicteric, clear oral mm
Neck-supple
CV-reg, no M, +S1/S2
Lungs-clear B/L
Abd-soft, tender right upper quadrant
Ext-no edema
Musculoskeletal-no cyanosis, clubbing
Skin-warm and dry
Neuro-grossly non-focal
Psych-calm, cooperative
Septic shock due to cholelithiasis -rule out choledocholithiasis, cholecystitis. Positive blood cultures noted, gram-positive cocci in pairs and chains. IV Vanco/Zosyn per ID. Hemodynamically stable. Lactic acidosis due to sepsis, present on
admission. Now improved.
General Surgery to take to the OR today for laparoscopic cholecystectomy with intraoperative cholangiogram. MRI canceled.
Blood pressure dropped 09/23, now improved. Received 1 dose of midodrine 5 mg. Continue IV fluids.
DEQUAN on CKD 3b -etiology of DEQUAN possibly due to contrast-induced nephropathy, hypotension. Sepsis can also contribute. Component of urinary retention noted. Monitor bladder scans. Add Flomax. Continue IV fluid support. Creatinine unfortunately
climbing, 3.6 today. Check bladder scan, discussed with nursing. CT scan done on admission shows mild bladder distention, mild prostatomegaly, intravesicular protrusion. Questionable small prostate abscess. He has no symptoms. Urinalysis
unremarkable. Will consult urology for opinion.
Hold losartan.
DM2 with hyperglycemia -hemoglobin A1c 8.9%, 09/06/2024. Glucose 113 this morning. Received 30 units of Lantus last night.
At home he is on insulin degludec 44 units at bedtime, Jardiance 25 mg daily, tirzepatide 10 mg subcutaneously every Friday.
In the hospital he is on Lantus 30 units at bedtime, low resistance NovoLog scale.
Chronic heart failure preserved EF -stable.
CAD -stable.
Paroxysmal atrial fibrillation -last dose of Eliquis was 09/22 AM.
Essential hypertension -hold antihypertensives for low blood pressure.
Hyperlipidemia -rosuvastatin.
History of prostate cancer -s/p TURP.
History of tachybradycardia syndrome -s/p pacemaker.
Diabetic peripheral neuropathy
BPH
Gout -allopurinol.
Obesity due to excess calories
DNR
Anticipated Discharge: > 48 hours
Subjective/Interval History
-
Date of Service: September 24, 2024
Patient seen and examined. Still with right upper quadrant pain.
Objective Data
-
Labs:
Laboratory Results
09/24/24
05:06
WBC 16.4 H
Hgb 12.5 L
Hct 39.7
Plt Count 170
Sodium 145
Potassium 3.9
Chloride 108 H
Carbon Dioxide 20 L
BUN 59 H
Creatinine 3.6 H
Glucose 113 H
Calcium 8.1 L
Total Bilirubin 1.4 H
AST 363 H
ALT 479 H
Alkaline Phosphatase 304 H
Vital Signs:
Vital Signs
Temp Pulse Resp BP Pulse Ox
97.6 F 86 16 123/63 99
09/24/24 07:30 09/24/24 07:30 09/24/24 07:30 09/24/24 07:30 09/24/24 07:30
I&O
09/23/24 09/24/24 09/25/24
06:59 06:59 06:59
Intake Total 1320 / 1320
Balance 1320 / 1320
Review of Systems
-
History Source: Patient
All other systems: Reviewed and negative
--- NOTE | 2024-09-24 10:24 | CONS.URO ---
Consultation
-
Date/Time Consultation Performed: 09/25/2024 0700
Performing Provider: Isaiah
Reason for Consultation: possible prostatic abscess
Medical History
History of Present Illness
Pt admitted on 09/22/2024 with abdominal pain -- seen by GS: 'biliary colic vs ACC vs cholangitis'; surgical intervention anticipated
03/2024 Urology Outpatient visit:
Prostate Cancer [T1b]
h/o Uric Acid Stones
Prostate Enlargement, Recurrent UTI's
saw Dr. Ibarra x 10 years; UTI/sepsis; Tamsulosin prescribed
09/2018 Episode of Gross Hematuria
02/2020 MRI: PI-RADS 2; 78 cc
03/2020 TURP: T1b GG 3+4 adenocarcinoma
07/25/[address] of Abdomen and Pelvis, excerpt: 'There is a 1.0 cm hypodense focus along the posterior aspect of the prostate which may represent a nodule, if there is known prostatitis a small abscess could appear similar.'
Past Medical History
Past Medical History: Other (Coronary Artery Disease s/p LAD Drug-Eluting Stent in October 2021 Chronic HFpEF Atrial Fibrillation Tachy/Edwardo Syndrome s/p Pacemaker Essential Hypertension Hyperlipidemia Diabetes Mellitus, Type II Diabetic Neuropathy
Diabetic Nephropathy with CKD Stage III BPH Gout Hx Prostate CA s/p TURP)
Past Surgical History: Orthopedic (foot surgeries), Urological (TURP 2019 for chronic, recurrent bacterial prostatitis) and Other
Allergies/Home Medications
Allergies
Allergy/AdvReac Type Severity Reaction Status Date / Time
No Known Allergies Allergy Verified 09/22/24 12:12
Home Medications
�Medication �Instructions �Recorded �Confirmed �Type
cholecalciferol (vitamin D3) 50 1,000 unit PO DAILY Supplement 07/01/13 09/22/24 History
mcg (2,000 unit) capsule (Vitamin
D3)
allopurinol 300 mg tablet 300 mg PO DAILY Gout 07/02/13 09/22/24 History
pantoprazole 40 mg tablet,delayed 40 mg PO DAILY Gastrointestinal 10/04/18 09/22/24 History
release issue
finasteride 5 mg tablet 5 mg PO DAILY Urinary issue 10/25/21 09/22/24 History
nitroglycerin 0.4 mg sublingual 0.4 mg sublingual [id number] PRN 10/26/21 09/22/24 Rx
tablet chest pain #25 tabs
furosemide 40 mg tablet 40 mg PO MOWEFR Fluid 11/21/21 09/22/24 History
retention/Swelling
apixaban 5 mg tablet (Eliquis) 2.5 mg PO BID Blood clot 04/02/22 09/22/24 History
prevention/tx
triamcinolone acetonide 0.1 % 1 applic topical BIDPRN PRN ankle 04/02/22 09/22/24 History
topical cream cellulitis R leg
losartan 25 mg tablet 25 mg PO DAILY Blood Pressure 01/23/23 09/22/24 History
aspirin 81 mg tablet,delayed 81 mg PO DAILY Blood Clot 09/22/24 09/22/24 History
release Prevention/Tx
cyanocobalamin (vitamin B-12) 1,000 mcg PO DAILY Supplement 09/22/24 09/22/24 History
1,000 mcg tablet
empagliflozin 25 mg tablet 25 mg PO DAILY Diabetes 09/22/24 09/22/24 History
(Jardiance)
escitalopram oxalate 10 mg tablet 10 mg PO DAILY depression/anxiety 09/22/24 09/22/24 History
(Lexapro)
insulin degludec 200 unit/mL (3 44 unit SC QPM Diabetes 09/22/24 09/22/24 History
mL) subcutaneous pen (Tresiba
FlexTouch U-200 insulin)
tirzepatide 10 mg/0.5 mL 10 mg SC BORGES Diabetes 09/22/24 09/22/24 History
subcutaneous pen injector
(Mounjaro)
rosuvastatin 40 mg tablet 40 mg PO QPM cholesterol 09/23/24 09/22/24 History
Physical Exam
Vital Signs
Vital Signs
Temp Pulse Resp BP Pulse Ox
97.6 F 86 16 123/63 99
09/24/24 07:30 09/24/24 07:30 09/24/24 07:30 09/24/24 07:30 09/24/24 07:30
Lab / Testing Results
Laboratory Results
09/24/24 05:06
09/24/24 05:06
Physical Exam
in ICU bed
Assessment / Plan
-
Known prostate enlargement with h/o chronic bacterial prostatitis apparently satisfactorily corrected by TURP during 2019.
Quiescent prostate cancer
current UA does not show nitrates, leukocyte esterase, significant WBCs -- bacterial prostatic abscess appear unlikely; no specimen was submitted for urine culture
Rec: no urology intervention currently advised; outpatient urine C&S after completion of current course of antibiotics
--- NOTE | 2024-09-24 10:38 | W.PN.ID1 ---
Date of Service
Date of Service: September 24, 2024
Today's Communication
Continue antibiotics.
Assessment / Plan
Leukocytosis
Bacteremia (GPC chains)
Acute cholecystitis +/- ascending cholangitis
DEQUAN on CKD
Elevated bilirubin
Transaminitis
A-fib
CAD
Hx squamous cell CA of the face
CHF
HTN
HLD
DM
Renal insufficiency
Gout
Recommendations:
Continue with empiric Zosyn and Vanco for today.
Follow vancomycin levels closely to prevent nephrotoxicity
Repeat blood cultures have been obtained; following for clearance.
Await final ID of positive blood cultures to guide further antimicrobial selection and potential de-escalation.
Patient for cholecystectomy later today.
Continue with supportive care.
Monitor white count and temperature curve.
����������������������������������������������������������
Chief Complaint
-: Bacteremia
Subjective / Review of Systems
Patient seen and examined. Reports feeling somewhat improved today, with decreased abdominal discomfort.
Vital Signs / Physical Exam
Vital Signs
Vital Signs
Temp Pulse Resp BP Pulse Ox
97.6 F 86 16 123/63 99
09/24/24 07:30 09/24/24 07:30 09/24/24 07:30 09/24/24 07:30 09/24/24 07:30
Physical Exam
Constitutional: Comfortable and Non-toxic
Eyes: Sclera Anicteric
Cardiovascular: S1/S2; Negative S3/S4
Pulmonary: Non Labored
Gastrointestinal: Soft, Tender, Distended, Normal Bowel Sounds, No Rebound and No Guarding
Neurological: Awake and Alert
Psychological: Calm
Objective Data
Lab Data
Lab Results
09/24/24 05:06
09/24/24 05:06
Estimated Creat Clear 21 ml/min 09/24/24 05:06
Lactic Acid Cancelled 09/23/24 06:00
Total Bilirubin 1.4 mg/dl (0.2-1.3) H 09/24/24 05:06
AST 363 U/L (17-59) H 09/24/24 05:06
ALT 479 U/L (0-50) H 09/24/24 05:06
Alkaline Phosphatase 304 U/L (38-126) H 09/24/24 05:06
Most recent labs reviewed.
Micro Results:
09/23/24 09:36 Blood Culture - Preliminary
Blood/Venous No Growth in 24 hours- Final report to follow
09/23/24 11:03 Blood Culture - Pending
Blood/Venous
09/22/24 15:11 Blood Culture - Preliminary
Blood/Venous Positive culture in progress
Gram Stain - Preliminary
09/22/24 15:11 Blood Culture - Preliminary
Blood/Venous Positive culture in progress
Gram Stain - Preliminary
Imaging:
09/22/24 Abdominal ultrasound: Numerous small gallstones. Gallbladder wall thickness is top normal. No cholecystic fluid. Negative sonographic Hoyos sign.
09/22/2024 CT abdomen/pelvis: Gallbladder appears borderline distended with cholelithiasis and surrounding stranding concerning for acute cholecystitis. Urinary bladder is mildly distended. There is mild prostamegaly with intravesicular protrusion.
Please see full dictation for additional detail.
--- NOTE | 2024-09-24 13:22 | W.PN.UPDATE ---
Update Note
Progress Note Update
Patient is currently off the floor undergoing cholecystectomy. Dr. Vaca told me he would do an IntraOp cholangiogram and will let us know if it is positive for any CBD stones
--- NOTE | 2024-09-24 13:44 | W.IMMPOSTOP ---
Addendum entered and electronically signed by Aries Vaca MD 09/24/24 13:53:
Hold eliquis post-op 72 hrs.
updated by phone.
Original Note:
Surgical Immed Post Op Note
-
Primary Surgeon: Lio
Assisting: Wiley BURK
Pre-op Diagnosis: Acute calculous cholecystitis
Post-op Diagnosis: Same
Procedure Performed: Robot assisted laparoscopic cholecystectomy with cholangiogram
Anesthesia Type: GETA
Specimen / Cultures: Gallbladder
Estimated Blood Loss: 40cc
Complications: None immediate
Operative Findings: Severely inflamed gallbladder with thickened wall and patchy necrosis, filmy omental adhesions, distended transverse colon; cholangiogram with good flow into duodenum, opacification of biliary tree without filling defects,
bubbles noted
--- NOTE | 2024-09-24 13:45 | OR.RPT ---
Operative Report
Operative Report
Primary Surgeon: Lio
Assisting: Wiley BURK
Pre-op Diagnosis: Acute calculous cholecystitis
Post-op Diagnosis: Same
Procedure Performed: Robot assisted laparoscopic cholecystectomy with cholangiogram, modifier 22
Anesthesia Type: GETA
Specimen / Cultures: Gallbladder
Estimated Blood Loss: 40cc
Complications: None immediate
Operative Findings: Severely inflamed gallbladder with thickened wall and patchy necrosis, filmy omental adhesions, distended transverse colon; cholangiogram with good flow into duodenum, opacification of biliary tree without filling defects,
bubbles noted
Date of Surgery:� 09/24/24
Indications: This 78M developed acute calculous cholecystitis. Lab work showed elevated liver enzymes. Imaging showed no ductal dilation. After elequis washout, laparoscopic cholecystectomy with cholangiogram with robotic assist was elected.
Description of procedure: The patient was placed on the operating table in the supine position. General anesthesia was induced. A time-out was completed verifying correct patient, procedure, site, positioning, and special equipment prior to
beginning this procedure. An orogastric tube was placed. The abdomen was prepped and draped in the usual sterile fashion. A stab incision was made in left upper quadrant and the Veress needle was inserted. Proper position was confirmed by aspiration
and saline meniscus test. The abdomen was insufflated with carbon dioxide to a pressure of 12mmHg. The patient tolerated insufflation well.
A 8mm trocar was then inserted above the umbilicus. The laparoscope was inserted and the abdomen inspected. No injuries from initial trocar placement or Veress needle insertion were noted. Additional 8mm trocars were then inserted in the following
locations: two in the right lower quadrant and to the left of the umbilicus and just above. The abdomen was inspected and no abnormalities were found. The table was placed in the reverse Trendelenburg position with the right side up. The
gallbladder was encased in omentum that was gently bluntly swept down. The wall was thickened, hydropic with patchy necrosis. The dome of the gallbladder was grasped with an atraumatic grasper and retracted over the dome of the liver. Pressure on
the lower rib was required to achieve adequate visualization. The infundibulum was then grasped with an atraumatic grasper and retracted toward the right lower quadrant. The transverse colon was severely distended and obscuring our view. A 5mm
assistant import manager port was placed and a grasper was used to retract the colon. This maneuver exposed Calot�s triangle. The thickened edematous peritoneum overlying the gallbladder infundibulum was then incised and the cystic duct and cystic artery
identified and circumferentially dissected so that a clear view of the liver was achieved through a window between the cystic duct an cystic artery. At this time, the only two structures going into the gallbladder were the cystic artery and cystic
duct.
A reshma was made in the cystic duct and a cholangiogram catheter threaded through the abdominal wall and into the cystic duct and secured with 3-0 silk suture. A cholangiogram was obtained that showed good flow of bile into the duodenum,
opacification of biliary tree without filing defects. The catheter was removed.
The cystic duct was then doubly clipped and divided. The cystic artery was controlled with bipolar and divided. A branch of the cystic artery was controlled with clips and divided. The gallbladder was then dissected from its peritoneal attachments
by electrocautery. The gallbladder was removed using an endoscopic retrieval bag placed through the umbilical port. Small stones spilled and were retrieved to the maximum extent safely possible with suction irrigation. The gallbladder was passed off
the table as a specimen. The gallbladder fossa was closely inspected. There was no evidence of bleeding from the gallbladder fossa or cystic artery or leakage of the bile from the cystic duct stump. The umbilical trocar site was closed at the
fascial level with 2-0 PDS. Secondary trocars were removed under direct vision and noted to be hemostatic. The abdomen was allowed to collapse. The skin was closed with subcuticular sutures of 4-0 monocryl and topical skin adhesive. The orogastric
tube was removed.
The patient tolerated the procedure well and was taken to the postanesthesia care unit in stable condition.
[2024-09-24] MEDS: NEO-SYNEPHRINE 250 IV (14:28)
[2024-09-24 14:31] LABS: Glucose - Point of Care 103 mg/dl (70-99)
--- NOTE | 2024-09-24 14:47 | SUR.PHASEI ---
Dr. Manzanares at bedside for low BP, andrew gtt to be ordered and started, request bladder scan at this time. Bladder scan volume 98cc. Pt alert, BG [address] Silva at bedside, aware of BP, plan to admit to IMU, orders to
follow, no santana catheter ordered at this time, will continue to monitor and titrate andrew gtt for SBP greater than 90
--- NOTE | 2024-09-24 14:57 | W.PN.UPDATE ---
Update Note
Progress Note Update
Informed by Dr. Vaca that patient hypotensive in the recovery room, requiring phenylephrine.
Diagnosis remains septic shock.
Transition to Levophed IV and transfer to ICU. Discussed with surgical service, PACU nurse, ophthalmic pathologist.
Will update family.
--- NOTE | 2024-09-24 14:58 | CON.INTV ---
Consultation
Consultation Request
Date/Time Consultation Requested: 09/24/2024-3 PM
Date/Time Consultation Performed: 09/24/2024-3 PM
Requesting Provider: hospitalist
Performing Provider: Dr. Epps
Reason for Consultation: sepsis
Medical History
-
Chief Complaint: sepsis
History of Present Illness:
78-year-old male with a history of hypertension, hyperlipidemia, diabetes, BPH, prostate cancer, CAD, chronic heart failure preserved EF, atrial fibrillation presented with abdominal pain, found to have cholecystitis and underwent robotic assisted
laparoscopic cholecystotomy with cholangiogram and noted to be septic in the PACU-making department preparer consulted for septic shock/critical care management 09/24/09/24/2024.. The patient states that he feels much improved. He denies any shortness of breath at
rest, chest pain, chest congestion, productive cough, and his abdominal pain is manageable, he does not complain of lower extremity swelling. He does have shoulder pain.
Past Medical History
Past Medical History: None ( Hypertension. Hyperlipidemia. CAD/stent LAD October 2021. Chronic heart failure preserved EF. Atrial fibrillation. Tachybradycardia/permanent pacemaker. Diabetes. Neuropathy. Chronic kidney disease stage III. BPH.
Gout. Prostate can Left foot surgery. Cataract.)
Social History
Tobacco: Non-smoker
Alcohol: None
Drug: None
Personal:
Living: With Family
Occupational Exposures: No known asbestos exposure
Environmental Exposures: no known tuberculosis exposure
Family History
Family History: Reviewed & Not Pertinent
Allergies / Home Medications
Allergies
Allergy/AdvReac Type Severity Reaction Status Date / Time
No Known Allergies Allergy Verified 09/22/24 12:12
Home Medications
�Medication �Instructions �Recorded �Confirmed �Last Taken �Type
cholecalciferol (vitamin D3) 50 1,000 unit PO DAILY Supplement 07/01/13 09/22/24 09/21/24 History
mcg (2,000 unit) capsule (Vitamin
D3)
allopurinol 300 mg tablet 300 mg PO DAILY Gout 07/02/13 09/22/24 09/22/24 History
pantoprazole 40 mg tablet,delayed 40 mg PO DAILY Gastrointestinal 10/04/18 09/22/24 09/22/24 History
release issue
finasteride 5 mg tablet 5 mg PO DAILY Urinary issue 10/25/21 09/22/24 09/22/24 History
nitroglycerin 0.4 mg sublingual 0.4 mg sublingual [id number] PRN 10/26/21 09/22/24 Unknown Rx
tablet chest pain #25 tabs
furosemide 40 mg tablet 40 mg PO MOWEFR Fluid 11/21/21 09/22/24 09/22/24 History
retention/Swelling
apixaban 5 mg tablet (Eliquis) 2.5 mg PO BID Blood clot 04/02/22 09/22/24 09/22/24 History
prevention/tx
triamcinolone acetonide 0.1 % 1 applic topical BIDPRN PRN ankle 04/02/22 09/22/24 01/22/23 16:00 History
topical cream cellulitis R leg
losartan 25 mg tablet 25 mg PO DAILY Blood Pressure 01/23/23 09/22/24 09/22/24 History
aspirin 81 mg tablet,delayed 81 mg PO DAILY Blood Clot 09/22/24 09/22/24 09/22/24 History
release Prevention/Tx
cyanocobalamin (vitamin B-12) 1,000 mcg PO DAILY Supplement 09/22/24 09/22/24 09/22/24 History
1,000 mcg tablet
empagliflozin 25 mg tablet 25 mg PO DAILY Diabetes 09/22/24 09/22/24 09/22/24 History
(Jardiance)
escitalopram oxalate 10 mg tablet 10 mg PO DAILY depression/anxiety 09/22/24 09/22/24 09/22/24 History
(Lexapro)
insulin degludec 200 unit/mL (3 44 unit SC QPM Diabetes 09/22/24 09/22/24 09/21/24 History
mL) subcutaneous pen (Tresiba
FlexTouch U-200 insulin)
tirzepatide 10 mg/0.5 mL 10 mg SC BORGES Diabetes 09/22/24 09/22/24 09/19/24 History
subcutaneous pen injector
(Mounjaro)
rosuvastatin 40 mg tablet 40 mg PO QPM cholesterol 09/23/24 09/22/24 09/21/24 History
Review of Systems
-
Unable to Obtain full review of systems at this time due to: Other ( per HPI)
Vitals / Labs / Diagnostic Testing
Vital Signs
Temp Pulse Resp BP Pulse Ox
97.9 F 86 28 85/52 96
09/24/24 14:15 09/24/24 14:44 09/24/24 14:44 09/24/24 14:44 09/24/24 14:44
Lab Data
09/24/24 05:06
09/24/24 05:06
Microbiology
09/23/24 11:03 Blood/Venous Blood Culture - Preliminary
No Growth in 24 hours- Final report to follow
09/22/24 15:11 Blood/Venous Blood Culture - Preliminary
Enterococcus species
09/22/24 15:11 Blood/Venous Gram Stain - Preliminary
09/22/24 15:11 Blood/Venous Blood Culture - Preliminary
Enterococcus species
09/22/24 15:11 Blood/Venous Gram Stain - Preliminary
09/23/24 09:36 Blood/Venous Blood Culture - Preliminary
No Growth in 24 hours- Final report to follow
Diagnostic Testing:
Physical Exam
-
Exam:
Well-nourished and well-developed in no apparent distress
HEENT-atraumatic, normocephalic
Neck-supple, no JVD, no bruit
Heart-regular rate and rhythm-no murmurs, rubs or gallops
Chest-clear to auscultation, no wheezes, crackles
Back-no tenderness
Abdomen-soft, nontender, nondistended, no hepatosplenomegaly
Extremities-no cyanosis, clubbing, edema and good peripheral pulses
Integument-intact, no rashes, lesions or ecchymosis
Neurology-alert and oriented, nonfocal motor and sensory exam
Assessment
-
78-year-old male with a history of hypertension, hyperlipidemia, diabetes, BPH, prostate cancer, CAD, chronic heart failure preserved EF, atrial fibrillation presented with abdominal pain, found to have cholecystitis and underwent robotic assisted
laparoscopic cholecystotomy with cholangiogram and noted to be septic in the PACU-making department preparer consulted for septic shock/critical care management 09/24/2024.
Septic shock unresponsive to fluids requiring pressors
Acute cholecystitis/ascending cholangitis
Status post robotic assisted laparoscopic cholecystectomy/cholangiogram-Dr. Vaca
Leukocytosis
DEQUAN
Elevated LFTs
Hyperglycemia
Hypoalbuminemia
DNR
Conditions present prior to admission:
Hypertension.
Hyperlipidemia.
CAD/stent LAD October 2021.
Chronic heart failure preserved EF.
Atrial fibrillation.
Tachybradycardia/permanent pacemaker.
PAD
BRYSON on CPAP 15 cm
Diabetes.
Neuropathy.
Chronic kidney disease stage III.
BPH.
Gout.
Prostate cancer
Left foot surgery. Cataract.
Plan
The patient will be transferred to medical intensive care unit for persistent hypotension despite fluid resuscitation requiring pressors
Supplement oxygen as needed
High flow oxygen if needed
BiPAP if necessary
Patient is a DNR
Aspiration precautions
Nebulizers if needed
Check chest x-ray
Obtain cultures
Empiric antibiotics-vancomycin and Zosyn
Infectious disease following-correspondence reviewed
Monitor leukocytosis
Fluid resuscitation with 30 mL/kg crystalloid-preferably lactated ringer-(less DEQUAN) with subsequent boluses as needed
Monitor lactate
Follow CVP if possible
Attempt noninvasive bedside tissue perfusion evaluation to see if fluid bolus responsive
Measure pulse pressure and stroke volume variation if patient on ventilator, passively breathing without arrhythmia and with temporary large tidal volume ventilation and if > 13% then likely fluid bolus responsive
If patient active then consider measuring bedside leg lift for 3 minutes and if cardiac output increases or if there is a rise of 2-4 on end-tidal CO2 then fluid bolus
If bedside ultrasound available then measure IVC diameter variation to evaluate for fluid bolus responsiveness
Begin pressors as needed for MAP goal of 65-Norepinephrine first, then Vasopressin and consider Angiotensin II if continues to be hypotensive
Consider methylene blue if available-specific inhibitor of induced nitric oxide synthase iNOS and its downstream enzyme soluble guanylate cyclase-noninferiority study shown to reduce time to vasopressor discontinuation, decreased ICU length of stay,
hospital stay but no change in mortality-published Critical Care 08/05/2022
If persistently hypotensive then consider checking random cortisol-hydrocortisone if random less than 3, if 3-15 then consider ACTH stimulation test
If persistently hyperthermic then correcting hyperthermia can decrease pressor requirements, increased chances of reversal of shock and decrease mortality
Surgery following-correspondence reviewed
Operative records reviewed
Gastroenterology following as well
Monitor renal function
Urology consulted
Monitor blood sugar
Insulin supplementation as needed
DVT prophylaxis
GI prophylaxis-on pantoprazole
Nutrition per surgery
Early mobilization/bedside range of motion
Patient follows with Dr. Menon in the office for sleep apnea-last saw Nora Straks OTHER SALES SUPPORT WORKER 09/07/24
Critical care statement: A total of 55 minutes of critical care time was provided for this patient today. This includes management of unstable vital signs, evaluation of the patient at bedside, reviewing the patient's pertinent medical records
including radiographs, microbiology, laboratory evaluations, and discussion with primary team, consultants, pharmacy, nutrition, physical therapy, case management, charge nurse, critical care nursing, and respiratory therapy.
Diagnostic data:
CT Chest 12/18/16: minimal scarring and/or atelectasis in the right upper and right middle lobe , vague area of ground glass opacity in the anterior right middle lobe suggesting near complete clearing of previous bronchitis or possible infection. No
mass or adenopathy, no pleural effusion..
CT abdomen and pelvis 09/22/24-gallbladder borderline distended with cholelithiasis and findings concerning for acute cholecystitis
Abdominal ultrasound 09/22/24-cholelithiasis, no evidence for acute cholecystitis, fatty infiltration of the liver
ECHO 12/02/22:� Normal left ventricular size, wall thickness and systolic function. Normal right ventricular size and function. No significant valvular disease. Compared to the previous echo 10/10/21 there is no significant change.��������
[facility] 11/21/21:75-80 percent lesion in LAD with subtotal occlusion status post successful PCI and placement of drug-eluting stent, reduction in stenosis to 0%
HST 12/24/2021-[facility]-57.7, desaturation razia 76%, 15.7% of time spent less than 90% saturation
Data Reviewed
-
Radiology: Report reviewed by me
CT Scan: Report reviewed by me
Ultrasound: Report reviewed by me
Medical Tests (Nuc Med, Echo etc): Report reviewed by me
Labs: Labs reviewed by me
Old Records: Reviewed
Critical Care Time (in minutes): 55
[2024-09-24] MEDS: LEVOPHED 250 IV (15:15)
[2024-09-24] MEDS: NSS 1000 IV (16:18)
[2024-09-24] MEDS: DILAUDID 0.5 MG IV ×2 (16:29→22:01)
--- NOTE | 2024-09-24 17:00 | PTCARENOTE ---
received patient from PACU. patient is AAOX3, very [place]. has bilateral hearing aids. CHG bath completed and placed on monitor. Sometimes patient is Afib, sometimes SR with BBB. He is on 4L nasal cannula, oxygen saturation 97%. patient is
orthopneic. He does have home Cpap at bedside. Patient is due to void. bladder scanned prior to coming up to floor for 90ml. Placed condom cath/Covidien in place for incontinence. SCDs are on and ordered clear liquid diet. Patient is on 2mcgs
of levophed and NSS started at 80ml/hr. Will review orders and check blood sugar.
[2024-09-24 17:55] LABS: Glucose - Point of Care 138 mg/dl (70-99)
--- NOTE | 2024-09-24 19:59 | PTCARENOTE ---
Handoff report received from off going RN. Patient received on Levophed gtt at 1 mcg/min (3.8 ml/hr), and NSS at 80 ml/hr. Pt's AAOx4 and able to make his needs known. Verbalizes discomfort to his right shoulder and with inhalation. Plan of care and
pain management plan reviewed with the patient. NSR on the monitor with BBB. All pulses are palpable. Pt verbalizes numbness and tingling to b/l feet that's 'been there for over 20 years.' Diminished breath sounds. SpO2 at 96% on 4L/O2 nc. +BS.
Abdomen is round and tender to palpation. 5 lap sites are cdi with surgical adhesive. Condom catheter is intact. Patient cleansed with CHG wipes. Teeth brushed and linens changes. Levophed placed on hold. Pt assisted with repositioning. Bed alarm in
use. Call parker and personal belongings are within reach.
[2024-09-24] MEDS: LANTUS 0.2 UNITS SC (21:52)
[2024-09-24 22:05] LABS: Glucose - Point of Care 140 mg/dl (70-99)
[2024-09-24 23:56] LABS: Glucose - Point of Care 135 mg/dl (70-99)
[2024-09-25] VITALS (26 sets, daily range): BP systolic 95–140; BP diastolic 47–99; PULSE 72–78; O2SAT 93–94; BMI 33.7
--- NOTE | 2024-09-25 00:30 | PTCARENOTE ---
Patient reassessed. No changes from the previous assessment. Tolerated CPAP machine. VSS.
[2024-09-25] MEDS: NOVOLOG FLEXPEN-LOW RESISTANCE SC ×3 (00:50→12:55)
[2024-09-25] MEDS: ZOSYN 50 IV ×2 (00:52→05:38)
[2024-09-25 04:16] LABS: % Basophils 0.2 % (0-2); % Immature Granulocytes 0.7 % (0-0.5); % Lymphocytes 2.7 % (20.5-51.1); % Monocytes 4.4 % (1.7-9.3); Absolute Immature Granulocytes 0.1 10^3/uL (0-0.05); Absolute Lymphocytes 0.4 10^3/uL (1.2-3.4); Absolute Monocytes 0.6 10^3/uL (0.1-0.6); Absolute Neutrophils 11.9 10^3/uL (1.4-6.5); Hemoglobin 12.7 g/dL (13.0-18.0); Mean Corp Hgb Conc. 32.6 g/dL (33.0-37.0); Mean Corpuscular Hgb 28.6 pg (27.0-31.0); Mean Corpuscular Volume 87.8 fL (80.0-94.0); Nucleated Red Blood Cells % 0 % (-); Platelet Count 170 10^3/uL (130-400); Red Blood Cell Count 4.44 10^6/uL (4.70-6.10); White Blood Cell Count 12.9 10^3/uL (4.8-10.8)
--- NOTE | 2024-09-25 04:23 | PTCARENOTE ---
Patient reassessed. Awake and removed CPAP.The patient brushed his teeth. Labs drawn and sent. Pt asked for CPAP machine to be placed. PAtient bladder scanned the patient for 196 cc. Linens changed. Call parker is within reach.
[2024-09-25 04:43] LABS: Vancomycin Random 14.9 ug/ml
[2024-09-25 04:48] LABS: ALT (SGPT) 409 U/L (0-50); AST (SGOT) 346 U/L (17-59); Albumin 2.5 g/dl (3.5-5.0); Alkaline Phosphatase 390 U/L (38-126); Blood Urea Nitrogen 67 mg/dl (9-20); Calcium 7.9 mg/dl (8.4-10.2); Carbon Dioxide 20 mmol/L (22-30); Chloride 109 mmol/L (98-107); Estimated Creatinine Clearance 18 ml/min; Glucose 140 mg/dl (70-99); Potassium 4.5 mmol/L (3.5-5.1); Sodium 142 mmol/L (135-145); Total Bilirubin 1.2 mg/dl (0.2-1.3); Total Protein 4.9 g/dl (6.3-8.2); eGFR 13.22
[2024-09-25] MEDS: NSS 1000 IV ×3 (04:51→22:57)
[2024-09-25 05:30] LABS: Glucose - Point of Care 135 mg/dl (70-99)
[2024-09-25] MEDS: DILAUDID 0.5 MG IV (06:40)
--- NOTE | 2024-09-25 07:26 | W.PN.HOSP.TC ---
Today's Communication/Plan
-
nephrology consult
PT/OT
Assessment / Plan
Assessment / Plan
Gen-AAOx3, NAD
HEENT-NC, AT, anicteric, clear oral mm
Neck-supple
CV-reg, no M, +S1/S2
Lungs-clear B/L
Abd-soft, tender right upper quadrant
Ext-no edema
Musculoskeletal-no cyanosis, clubbing
Skin-warm and dry
Neuro-grossly non-focal
Psych-calm, cooperative
Enterococcal Septic shock due to Calculus cholecystitis - repeat blood cultures negative. Antibiotics per ID. Sepsis improving. WBC count coming down. Afebrile.
Required vasopressors on 09/24, now off. Lactic acidosis due to sepsis, present on admission. Now improved.
Acute calculus cholecystitis - choledocholithiasis ruled out with intraoperative cholangiogram. Underwent laparoscopic cholecystectomy September 24, Gallbladder was noted to be severely inflamed and thickened with patchy necrosis. Stable postop today.
Currently on clear liquid diet, advance per general surgery.
DEQUAN on CKD 3b -etiology of DEQUAN possibly due to contrast-induced nephropathy, hypotension with ischemic ATN. Sepsis can also contribute. Component of urinary retention noted. Bladder scan 196 this morning. Continue Flomax. Continue IV fluid
support. Creatinine unfortunately climbing, 4.3 today.
Acute hepatitis - likely due to sepsis, shock, ischemia. Transaminases coming down.
DM2 with hyperglycemia -hemoglobin A1c 8.9%, 09/06/2024. Glucose 135 this morning. Received 20 units of Lantus last night.
At home he is on insulin degludec 44 units at bedtime, Jardiance 25 mg daily, tirzepatide 10 mg subcutaneously every Friday.
Chronic heart failure preserved EF -stable.
CAD -stable.
Paroxysmal atrial fibrillation -last dose of Eliquis was 4/30 AM.
Essential hypertension -hold antihypertensives for low blood pressure.
Hyperlipidemia - Hold rosuvastatin for hepatitis.
History of prostate cancer -s/p TURP.
History of tachybradycardia syndrome -s/p pacemaker.
Diabetic peripheral neuropathy
BPH - With history of chronic bacterial prostatitis. Appreciate urology input. Unlikely to have prostatic abscess currently.
Gout -allopurinol.
Obesity due to excess calories
DNR
PT/OT
Anticipated Discharge: > 48 hours
Subjective/Interval History
-
Date of Service: September 25, 2024
Patient seen and examined. Feeling better. No complaints.
Objective Data
-
Labs:
Laboratory Results
09/25/24
03:53
WBC 12.9 H
Hgb 12.7 L
Hct 39.0
Plt Count 170
Sodium 142
Potassium 4.5
Chloride 109 H
Carbon Dioxide 20 L
BUN 67 H
Creatinine 4.3 H*
Glucose 140 H
Calcium 7.9 L
Total Bilirubin 1.2
AST 346 H
ALT 409 H
Alkaline Phosphatase 390 H
Vital Signs:
Vital Signs
Temp Pulse Resp BP Pulse Ox
97.9 F 79 10 115/62 91
09/25/24 07:00 09/25/24 06:30 09/25/24 06:30 09/25/24 06:00 09/25/24 06:30
I&O
09/24/24 09/25/24 09/26/24
06:59 06:59 06:59
Intake Total 1320 / 1320 2298.9 / 2298.9
Balance 1320 / 1320 2298.9 / 2298.9
Review of Systems
-
History Source: Patient
All other systems: Reviewed and negative
--- NOTE | 2024-09-25 07:45 | W.PN.GI.CBS2 ---
Today's Communication / Plan
-
-- Avoid Dilaudid if possible, tramadol will be a better option
-- Trend LFTs. GI will sign off. Please call back with questions or concerns
Assessment / Plan
-
Pt is an 78yo with hx afib on Eliquis, SSS, CHF, pacer for tachy/steve, NIDDM with recent start of Mounjaro , prostate CA with prior turp and urology follow, HTN, hyperlipidemia, depression gout, renal stones , low vitamin D level, obesity ,
metabolic syndrome, pulm HTN, pulm nodule, alport syndrome, b12 deficiency, carpel tunnel syndrome presents to ER today with abdominal pain with radiation to back. On admission CT concerned borderline distended gallbladder with cholelithiasis and
stranding concern for acute cholecystitis. Also noted bladder distention, prostatomegaly, prostate nodule and nonspecific para aortic lymph node. Labs on admisison WBC 16, BUN 45, creat 1.9, bili 1.9, AST 2020, ALT 989, alk phos 389. At this time
in review with pt and spouse ate Rosalie at 6-7 PM. He began with diffuse abdominal pain 8/10 with nausea and presented to ER for evaluation
-sudden onset of abdominal pain
-concern for sepsis on admission
-elevated LFT's with marked elevated AST
-NIDDM with recent start of Mounjaro with wt gain
-Afib on eliquis
-leukocytosis
-CKD
other med problems:
-SSS
-CHF
-pacer for tachy/steve syndrome
-CAD with prior stent
-prostate CA prior turp urology follow with nodule noted on CT
-HTN
-hyperlipidemia
-depression
-gout
-renal stones
-vitamin D
-obesity
-Pulm HTN
-pulm nodule
-alport syndrome
-B12 deficiency
-carpel tunnel syndrome
09/24/2024: Patient underwent robotic assisted cholecystectomy and cholangiogram -uneventful procedure however postop became hypotensive requiring ICU admission
--Patient's cholangiogram was negative for any filling defects and therefore no choledocholithiasis
09/25/2024: Patient appears to have clinically an ileus. No flatus or bowel movements. No significant bowel sounds on exam
--Discussed with patient and RN that Dilaudid is going to prevent improvement
--Told him to move his legs and get out of bed is much as possible and avoid narcotics if able
-- Cannot take Tylenol either because of liver enzyme elevation of 400 ALT
--Cannot use Toradol because of kidney injury
--Tramadol would be a better option than Dilaudid
--LFTs are improving, continue to trend and would check LFTs 1 to 2 weeks postdischarge
GI will sign off. Postsurgical management per general surgery
Subjective
Subjective
Date of Service: September 25, 2024
Patient is somewhat bloated and stating roughly 7 out of 10 discomfort. No flatus or stools. No nausea or vomiting
Objective
Data Reviewed
Laboratory Data:
Laboratory Results
09/25/24 03:53
09/25/24 03:53
Laboratory Results
Magnesium 2.3 mg/dl (1.6-2.3) 09/23/24 07:18
Total Bilirubin 1.2 mg/dl (0.2-1.3) 09/25/24 03:53
AST 346 U/L (17-59) H 09/25/24 03:53
ALT 409 U/L (0-50) H 09/25/24 03:53
Alkaline Phosphatase 390 U/L (38-126) H 09/25/24 03:53
Lipase 107 U/L (23-300) 09/22/24 12:44
Vital Signs and I&O:
Vital Signs
Temp Pulse Resp BP Pulse Ox
97.9 F 79 10 115/62 91
09/25/24 07:00 09/25/24 06:30 09/25/24 06:30 09/25/24 06:00 09/25/24 06:30
I&O
09/24/24 09/25/24 09/26/24
06:59 06:59 06:59
Intake Total 1320 / 1320 2298.9 / 2298.9
Balance 1320 / 1320 2298.9 / 2298.9
[2024-09-25] MEDS: NSS IV ×2 (07:51→12:03)
--- NOTE | 2024-09-25 07:55 | W.PN.ID1 ---
Date of Service
Date of Service: September 25, 2024
Today's Communication
Narrow to Unasyn
Assessment / Plan
Leukocytosis
Bacteremia (GPC chains)
Acute cholecystitis +/- ascending cholangitis
DEQUAN on CKD
Elevated bilirubin
Transaminitis
A-fib
CAD
Hx squamous cell CA of the face
CHF
HTN
HLD
DM
Renal insufficiency
Gout
Recommendations:
Narrow antibiotics to Unasyn alone, dosed for renal insufficiency
Repeat blood cultures have been obtained; following for clearance.
Await final identification and susceptibility data.
Continue with supportive care.
Monitor white count and temperature curve.
����������������������������������������������������������
Chief Complaint
-: Bacteremia and Other (Cholecystitis)
Vital Signs / Physical Exam
Vital Signs
Vital Signs
Temp Pulse Resp BP Pulse Ox
97.9 F 79 10 115/62 91
09/25/24 07:00 09/25/24 06:30 09/25/24 06:30 09/25/24 06:00 09/25/24 06:30
Physical Exam
Constitutional: Comfortable, Non-toxic and Obese
Eyes: Sclera Anicteric
Cardiovascular: Regular Rate and S1/S2; Negative S3/S4
Pulmonary: Non Labored
Gastrointestinal: Soft, Tender, Decreased Bowel Sounds, No Rebound and No Guarding
Genito-Urinary: Negative Suprapubic Tenderness
Extremities: Negative Cyanosis or Erythema
Skin: Warm and Dry; Negative Rash
Wound: Other (Abdominal trocar wounds C/D/I)
Neurological: Awake and Alert
Psychological: Calm
Objective Data
Lab Data
Lab Results
09/25/24 03:53
09/25/24 03:53
Estimated Creat Clear 18 ml/min 09/25/24 03:53
Lactic Acid Cancelled 09/23/24 06:00
Total Bilirubin 1.2 mg/dl (0.2-1.3) 09/25/24 03:53
AST 346 U/L (17-59) H 09/25/24 03:53
ALT 409 U/L (0-50) H 09/25/24 03:53
Alkaline Phosphatase 390 U/L (38-126) H 09/25/24 03:53
Most recent labs reviewed.
Micro Results:
09/23/24 11:03 Blood Culture - Preliminary
Blood/Venous No Growth in 24 hours- Final report to follow
09/22/24 15:11 Blood Culture - Preliminary
Blood/Venous Enterococcus species
Gram Stain - Preliminary
09/22/24 15:11 Blood Culture - Preliminary
Blood/Venous Enterococcus species
Gram Stain - Preliminary
09/23/24 09:36 Blood Culture - Preliminary
Blood/Venous No Growth in 24 hours- Final report to follow
Imaging:
09/22/24 Abdominal ultrasound: Numerous small gallstones. Gallbladder wall thickness is top normal. No cholecystic fluid. Negative sonographic Hoyos sign.
09/22/2024 CT abdomen/pelvis: Gallbladder appears borderline distended with cholelithiasis and surrounding stranding concerning for acute cholecystitis. Urinary bladder is mildly distended. There is mild prostamegaly with intravesicular protrusion.
Please see full dictation for additional detail.
Care Review
Plan reviewed with: Physician (Hospitalist)
[2024-09-25] MEDS: LEXAPRO 10 MG PO (08:04)
[2024-09-25] MEDS: FLOMAX 0.4 MG PO (08:04)
[2024-09-25] MEDS: ZYLOPRIM 300 MG PO (08:04)
[2024-09-25] MEDS: PROTONIX 40 MG PO (08:04)
[2024-09-25] MEDS: ASPIR LOW (ENTERIC COATED) 81 MG PO (08:04)
[2024-09-25] MEDS: PROSCAR 5 MG PO (08:04)
[2024-09-25] MEDS: DESENEX/MITRAZOL/ZEASORB 1 APPLIC TOPICAL ×2 (08:04→19:25)
[2024-09-25] MEDS: ULTRAM 25 MG PO ×2 (08:24→15:44)
--- NOTE | 2024-09-25 08:28 | W.PN.INTV ---
Today's Communication / Plan
Recommendations
Maintain MAP >65
Off vasopressors since yesterday evening
Antibiotics as per ID
Follow-up surveillance blood cultures which show NGTD
Goal BG 140�180
IVF
Renally dose all medications/antibiotics and trend serum creatinine
Continue ICU level care, possible downgrade tomorrow if BP remains stable and no serious complications from his worsening DEQUAN
Assessment
-
78-year-old male with a history of hypertension, hyperlipidemia, diabetes, BPH, prostate cancer, CAD, chronic heart failure preserved EF, atrial fibrillation presented with abdominal pain, found to have cholecystitis and underwent robotic assisted
laparoscopic cholecystotomy with cholangiogram and noted to be septic in the PACU-painting worker consulted for septic shock/critical care management 09/24/2024.
Septic shock unresponsive to fluids requiring pressors
Acute cholecystitis/ascending cholangitis
Status post robotic assisted laparoscopic cholecystectomy/cholangiogram-Dr. Vaca
Leukocytosis
DEQUAN
Elevated LFTs
Hyperglycemia
Hypoalbuminemia
DNR
Conditions present prior to admission:
Hypertension.
Hyperlipidemia.
CAD/stent LAD October 2021.
Chronic heart failure preserved EF.
Atrial fibrillation.
Tachybradycardia/permanent pacemaker.
PAD
BRYSON on CPAP 15 cm
Diabetes.
Neuropathy.
Chronic kidney disease stage III.
BPH.
Gout.
Prostate cancer
Left foot surgery. Cataract.
Plan
The patient was transferred to medical intensive care unit for persistent hypotension despite fluid resuscitation requiring pressors
Now off vasopressors since the evening of 09/24/2024
Supplement oxygen as needed
High flow oxygen if needed
BiPAP if necessary
Patient is a DNR
Aspiration precautions
Nebulizers if needed
Cultures reviewed
Blood cultures from 09/22/2024 has grown Enterococcus faecalis (pansensitive)
Surveillance blood cultures from 09/23/2024 shows NGTD
Empiric antibiotics- currently on Unasyn s/p vancomycin and Zosyn
Infectious disease following-correspondence reviewed
Monitor leukocytosis
Surgery following-correspondence reviewed
Operative records reviewed
Gastroenterology following as well
Pain control
Monitor renal function
Nephrology following
Renally dose all medications/antibiotics
Trend sCr and UOP --> continue IVF with NS 0.9% at 150cc/hr (increased from 80cc/hr)
Urology consulted on 09/24/2024, and no intervention advised
Monitor blood sugar with goal BG 140�180
Insulin supplementation as needed
DVT prophylaxis - start HSQ
GI prophylaxis-on pantoprazole (home medication)
Nutrition per surgery
Early mobilization/bedside range of motion
Patient follows with Dr. Menon in the office for sleep apnea-last saw Nora Starks CNP 09/07/24
Given that the patient has not been off of vasopressors for at least 24 hours, continue ICU level care to continue to monitor.
Diagnostic data:
CT Chest 12/18/16: minimal scarring and/or atelectasis in the right upper and right middle lobe , vague area of ground glass opacity in the anterior right middle lobe suggesting near complete clearing of previous bronchitis or possible infection. No
mass or adenopathy, no pleural effusion..
CT abdomen and pelvis 09/22/24-gallbladder borderline distended with cholelithiasis and findings concerning for acute cholecystitis
Abdominal ultrasound 09/22/24-cholelithiasis, no evidence for acute cholecystitis, fatty infiltration of the liver
ECHO 12/02/22:� Normal left ventricular size, wall thickness and systolic function. Normal right ventricular size and function. No significant valvular disease. Compared to the previous echo 10/10/21 there is no significant change.��������
[facility] 11/21/21:75-80 percent lesion in LAD with subtotal occlusion status post successful PCI and placement of drug-eluting stent, reduction in stenosis to 0%
HST 12/24/2021-[facility]-57.7, desaturation razia 76%, 15.7% of time spent less than 90% saturation
Total time spent today was 78 minutes for this encounter. Time includes reviewing laboratory test/imaging results, reviewing pertinent medical records, obtaining and reviewing medical history, performing an appropriate exam, ordering medications,
tests and procedures. Time also includes documentation of this encounter, coordinating patient care and communicating with other healthcare professionals. Total time does not include separately billed tests performed on this date of service.
Subjective Dataa
Subjective Data
Date of Service:
Date of Service: September 25, 2024
Chief Complaint: Bag Bundler Follow Up
Subjective:
Patient seen this morning, patient's , Elvia, at bedside and all questions were answered. Off pressors since yesterday evening. Currently on normal saline 0.9% at 150 cc/hr due to reduced urine output and rising creatinine. Heart rate 76,
BP 112/58 and saturating 93% on room air. Patient has abdominal pain in the right upper quadrant, otherwise denies SOB, MURRAY, back pain, fevers or chills.
Review of Systems
General: Other (Negative unless mentioned above)
Objective Data
Data Reviewed
Vital Signs / I&O / Oxygen:
Vital Signs
Temp Pulse Resp BP Pulse Ox
97.9 F 77 13 106/59 93
09/25/24 07:00 09/25/24 08:30 09/25/24 08:30 09/25/24 08:00 09/25/24 08:36
Intake and Output
09/24/24 09/25/24 09/26/24
06:59 06:59 06:59
Intake Total 1320 / 1320 2298.9 / 2378.9 480 / 480
Balance 1320 / 1320 2298.9 / 2378.9 480 / 480
SaO2 93
Nasal Cannula flow liters per 4
minute
Physical Exam
General: Respiratory Distress (negative), Comfortable, Chills (negative) and Sweats (negative)
HEENT: Normocephalic, Anicteric and Other (Thick neck)
Cardiovascular: S1-S2 and Peripheral Edema (negative)
Respiratory: Wheeze (negative), Crackles (Bilateral), Rhonchi (negative), Non-Labored Respirations and Other (Diminished breath sounds bilaterally)
GI: Soft, Distended (Abdominal obesity), Tender (Right upper quadrant) and Normal Bowel Sounds
Neurology: AO x 3 and Tremors (negative)
Skin: Warm, Dry, Cyanosis (negative) and Jaundice (negative)
Labs/Micro/Reports
Lab Data
09/25/24 03:53
09/25/24 03:53
Microbiology
09/23/24 09:36 Blood/Venous Blood Culture - Preliminary
No Growth in 48 hours- Final report to follow
09/22/24 15:11 Blood/Venous Blood Culture - Preliminary
Enterococcus species
09/22/24 15:11 Blood/Venous Gram Stain - Preliminary
09/23/24 11:03 Blood/Venous Blood Culture - Preliminary
No Growth in 24 hours- Final report to follow
09/22/24 15:11 Blood/Venous Blood Culture - Preliminary
Enterococcus species
09/22/24 15:11 Blood/Venous Gram Stain - Preliminary
--- NOTE | 2024-09-25 08:40 | PTCARENOTE ---
Received pt awake and alert.Speech is appropriate.+SHIELDS.c/o [phone] right upper abdomen pain.Received Tramadol as requested.A fib noted.IVF infusing.BL crackles 3/4 up.No SOB noted.POX 93% RA.No BM.No void.Bladder scan 127 ml.5 puncture wounds on
abdomen intact with surgical adhesive.Plan of care discussed.
[2024-09-25] MEDS: UNASYN IV ×2 (08:43→19:25)
--- NOTE | 2024-09-25 11:48 | W.CON.NEPH ---
Consultation
-
Date/Time Consultation Requested: September 25, 2024 at 7 AM
Date/Time Consultation Performed: September 25, 2024 at 11 AM
Requesting Provider: Dr. Villegas
Performing Provider: Dr. Jimenez
Reason for Consultation: Acute on chronic kidney disease
Medical History
-
Chief Complaint: Acute on chronic kidney disease
History of Present Illness:
78 yo man with hx atrial fibrillation on Eliquis, tachy-steve syndrome s/p PPM, HFpEF, CAD s/p PCI 11/14, essential HTN, HLD, CKD, DM, prostate CA s/p TURP presents to the ER with abdominal pain. Subsequently found to have cholecystitis status
post laparoscopic cholecystectomy.
Renal consult for acute on chronic kidney disease with baseline creatinine of 1.7-1.9 and creatinine on consultation 4.3 oligoanuric on pressor
Follows in our office for chronic kidney disease with Dr. Lopes
Past Medical History
Atrial fibrillation on Eliquis, tachy-steve syndrome s/p PPM, HFpEF, CAD s/p PCI 11/14, essential HTN, HLD, CKD, DM, prostate CA s/p TURP
Social History
Tobacco: Non-Smoker
Alcohol: None
Family History
Family History: Not Pertinent
Allergies / Home Medications
Allergy/AdvReac Type Severity Reaction Status Date / Time
No Known Allergies Allergy Verified 09/22/24 12:12
�Medication �Instructions �Recorded �Confirmed �Type
cholecalciferol (vitamin D3) 50 1,000 unit PO DAILY Supplement 07/01/13 09/22/24 History
mcg (2,000 unit) capsule (Vitamin
D3)
allopurinol 300 mg tablet 300 mg PO DAILY Gout 07/02/13 09/22/24 History
pantoprazole 40 mg tablet,delayed 40 mg PO DAILY Gastrointestinal 10/04/18 09/22/24 History
release issue
finasteride 5 mg tablet 5 mg PO DAILY Urinary issue 10/25/21 09/22/24 History
nitroglycerin 0.4 mg sublingual 0.4 mg sublingual [id number] PRN 10/26/21 09/22/24 Rx
tablet chest pain #25 tabs
furosemide 40 mg tablet 40 mg PO MOWEFR Fluid 11/21/21 09/22/24 History
retention/Swelling
apixaban 5 mg tablet (Eliquis) 2.5 mg PO BID Blood clot 04/02/22 09/22/24 History
prevention/tx
triamcinolone acetonide 0.1 % 1 applic topical BIDPRN PRN ankle 04/02/22 09/22/24 History
topical cream cellulitis R leg
losartan 25 mg tablet 25 mg PO DAILY Blood Pressure 01/23/23 09/22/24 History
aspirin 81 mg tablet,delayed 81 mg PO DAILY Blood Clot 09/22/24 09/22/24 History
release Prevention/Tx
cyanocobalamin (vitamin B-12) 1,000 mcg PO DAILY Supplement 09/22/24 09/22/24 History
1,000 mcg tablet
empagliflozin 25 mg tablet 25 mg PO DAILY Diabetes 09/22/24 09/22/24 History
(Jardiance)
escitalopram oxalate 10 mg tablet 10 mg PO DAILY depression/anxiety 09/22/24 09/22/24 History
(Lexapro)
insulin degludec 200 unit/mL (3 44 unit SC QPM Diabetes 09/22/24 09/22/24 History
mL) subcutaneous pen (Tresiba
FlexTouch U-200 insulin)
tirzepatide 10 mg/0.5 mL 10 mg SC BORGES Diabetes 09/22/24 09/22/24 History
subcutaneous pen injector
(Mounjaro)
rosuvastatin 40 mg tablet 40 mg PO QPM cholesterol 09/23/24 09/22/24 History
Review of Systems
-
Some mild right abdominal pain no chest pain no shortness of breath no nausea vomit
All other systems: Negative unless noted
Physical Exam
Vital Signs
Vital Signs
Temp Pulse Resp BP Pulse Ox
98.0 F 77 13 106/59 93
09/25/24 11:00 09/25/24 08:30 09/25/24 08:30 09/25/24 08:00 09/25/24 08:36
Lab Results
WBC 12.9 10^3/uL (4.8-10.8) H 09/25/24 03:53
RBC 4.44 10^6/uL (4.70-6.10) L 09/25/24 03:53
Hgb 12.7 g/dL (13.0-18.0) L 09/25/24 03:53
Hct 39.0 % (39.0-52.0) 09/25/24 03:53
Plt Count 170 10^3/uL (130-400) 09/25/24 03:53
Sodium 142 mmol/L (135-145) 09/25/24 03:53
Potassium 4.5 mmol/L (3.5-5.1) 09/25/24 03:53
Chloride 109 mmol/L (98-107) H 09/25/24 03:53
Carbon Dioxide 20 mmol/L (22-30) L 09/25/24 03:53
BUN 67 mg/dl (9-20) H 09/25/24 03:53
Creatinine 4.3 mg/dL (0.7-1.3) H* 09/25/24 03:53
eGFR 13.22 09/25/24 03:53
Glucose 140 mg/dl (70-99) H 09/25/24 03:53
Calcium 7.9 mg/dl (8.4-10.2) L 09/25/24 03:53
Albumin 2.5 g/dl (3.5-5.0) L 09/25/24 03:53
Physical Exam
General no acute distress
HEENT no cephalic atraumatic extraocular muscle intact no scleral icterus no JVD neck supple
lungs clear to auscultation bilateral
heart regular S1-S2 positive
abdomen soft nontender positive bowel sounds
extremities no edema pulses present bilateral
Neurologically nonfocal alert and oriented x 3
Skin no lesions no abrasions no petechiae
Psych normal affect no bizarre behavior
Data Reviewed
-
Labs: Labs Reviewed by me, Discussed with Nurse and Discussed with Patient
Assessment/Plan
-
78 yo man with hx atrial fibrillation on Eliquis, tachy-steve syndrome s/p PPM, HFpEF, CAD s/p PCI 11/14, essential HTN, HLD, CKD, DM, prostate CA s/p TURP presents to the ER with abdominal pain. Subsequently found to have cholecystitis status
post laparoscopic cholecystectomy.
Renal consult for acute on chronic kidney disease with baseline creatinine of 1.7-1.9 and creatinine on consultation 4.3 oligoanuric on pressor
Follows in our office for chronic kidney disease with Dr. Lopes
Impression.
Acute on chronic kidney disease with a creatinine of 4.3 on consultation 24 hours postop with baseline creatinine 1.7
Sepsis status postcholecystectomy
Enterococcal Septic shock
Atrial fibrillation
Type 2 diabetes
Plan.
Continue pressor support
Antibiotics per ID
DEQUAN multifactorial but most likely hemodynamic mediated and hypotension and ATN.
Will give 500 cc normal saline bolus then 150 cc normal saline continuous as discussed with the critical care nurse
Discussed with the patient about possible need for dialysis if he does not start to improve urine output
No urine retention on bladder scan
Check urinalysis
Total Time Spent with Patient (in minutes): 33
[2024-09-25] MEDS: NSS 500 IV (12:03)
[2024-09-25 12:11] LABS: Glucose - Point of Care 218 mg/dl (70-99)
--- NOTE | 2024-09-25 12:18 | PTCARENOTE ---
Pt assessed.No change in assessment noted.No void at this time.Renal and Voice Systems Engineer made aware.IV bolus infusing and IVF rate increased as ordered.
[2024-09-25] MEDS: NOVOLOG FLEXPEN-LOW RESISTANCE 2 UNITS SC ×2 (12:56→18:22)
--- NOTE | 2024-09-25 13:01 | W.PN.GS2 ---
Today's Communication / Plan
-
Advance diet
Assessment / Plan
-
78 yo diabetic male with h/o afib on Eliquis (LD 09/22) with enterococcus bacteremia secondary to ACC
POD #1 robotic cholecystectomy with IOC demonstrating patent CBD without choledocholithiasis. Necrotic/gangrenous gallbladder noted
Hypotensive perioperatively on pressors, now resolved and pressors weaned off
DEQUAN on CKD, nephrology following. Cr trending up
Bilirubin trending down
Leukocytosis trending down
Expected ruq/shoulder pain post operatively
--Continue with AC on hold for 48-72h post operatively
--Ok to advance to diabetic diet
--Analgesics as needed, hospitalist managing
--ABX as per ID
--OOB as able
Subjective Data
-
Date of Service: September 25, 2024
Patient seen and examined at bedside with Dr. Vaca. Some right shoulder into RUQ pain but manageable. Denies n/v.
Objective Data
-
Intake and Output
09/24/24 09/25/24 09/26/24
06:59 06:59 06:59
Intake Total 1320 / 1320 2298.9 / 2378.9 1890 / 1890
Balance 1320 / 1320 2298.9 / 2378.9 189 / 1890
Intake:
Oral fluids 960 / 960 840 / 840
IV fluids (Total) 720 / 720 1338.9 / 1418.9 550 / 550
Normosol 200 / 200
Nss 1,000 ml @ 150 mls/hr IV . 150 / 150
[id number] KATERIN Rx#:[id number]
Nss 1,000 ml @ 80 mls/hr IV . 1120 / 1200 400 / 400
[id number] KATERIN Rx#:[id number]
levo 18.9 / 18.9
IV piggybacks 600 / 600 500 / 500
Other:
Number of approximated MODERATE 2 2
amounts of urine
Vital Signs
Temp Pulse Resp BP Pulse Ox
98.0 F 80 18 112/58 94
09/25/24 11:00 09/25/24 12:15 09/25/24 12:15 09/25/24 12:00 09/25/24 12:15
Lab Results
09/25/24 03:53
09/25/24 03:53
Calcium 7.9 mg/dl (8.4-10.2) L 09/25/24 03:53
Magnesium 2.3 mg/dl (1.6-2.3) 09/23/24 07:18
Total Bilirubin 1.2 mg/dl (0.2-1.3) 09/25/24 03:53
Direct Bilirubin 0.8 mg/dl (0.0-0.4) H 09/23/24 07:18
AST 346 U/L (17-59) H 09/25/24 03:53
ALT 409 U/L (0-50) H 09/25/24 03:53
Alkaline Phosphatase 390 U/L (38-126) H 09/25/24 03:53
Total Protein 4.9 g/dl (6.3-8.2) L 09/25/24 03:53
Albumin 2.5 g/dl (3.5-5.0) L 09/25/24 03:53
Physical Exam
-
Gen: NAD
Abd: soft, tender in RUQ, morbid obesity (difficult to assess distension), no diffuse peritonitis
Incisions well approximated with intact glue
Patient has a santana catheter: No
Patient has a central line: No
--- NOTE | 2024-09-25 16:18 | PTCARENOTE ---
Pt assessed.No change in assessment.Assisted oob with max assist by OT/PT.c/o right abdominal pain.Requested and received Tramadol.
[2024-09-25 17:34] LABS: Glucose - Point of Care 234 mg/dl (70-99)
[2024-09-25] MEDS: LANTUS 0.2 UNITS SC (19:11)
--- NOTE | 2024-09-25 19:30 | PTCARENOTE ---
Received patient in bed awake and alert x4. Plan of care for the shift reviewed with the patient. MAEx4. NSR /Afib on the monitor with BBB. Clear breath sound. SpO2 at 94% on room air. Puncture wounds on abdomen are cdi with surgical glue. SCDs in
place. Safety measures maintained. Call parker and personal belongings are within reach.
[2024-09-25 21:08] LABS: Glucose - Point of Care 252 mg/dl (70-99)
[2024-09-25 23:17] LABS: Urine Albumin 3+ (Neg - Trace); Urine Bilirubin Negative (Negative); Urine Glucose 4+ (Negative); Urine Ketone Negative (Negative); Urine Leukocyte 1+ (Negative); Urine Nitrite Negative (Negative); Urine Occult Blood 3+ (Negative); Urine Urobilinogen Negative (Neg - 1+)
[2024-09-25 23:18] LABS: Urine Character Cloudy (Clear); Urine Color Yellow
[2024-09-25 23:45] LABS: Urine Amorphous Seen; Urine Bacteria Many (Negative); Urine Red Blood Cell None Seen /HPF (0-2); Urine Squamous Cell None seen /LPF (Few); Urine White Cell 50-60 /HPF (0-5)
[2024-09-26] VITALS (22 sets, daily range): BP systolic 94–137; BP diastolic 44–110; BMI 35.3
--- NOTE | 2024-09-26 00:39 | PTCARENOTE ---
Patient reassessed. No changes from the previous assessment.
[2024-09-26 03:46] LABS: % Basophils 0.1 % (0-2); % Immature Granulocytes 0.5 % (0-0.5); % Lymphocytes 3.2 % (20.5-51.1); % Neutrophils 91.2 % (42.2-75.2); Absolute Immature Granulocytes 0.1 10^3/uL (0-0.05); Absolute Lymphocytes 0.4 10^3/uL (1.2-3.4); Absolute Monocytes 0.6 10^3/uL (0.1-0.6); Absolute Neutrophils 10.9 10^3/uL (1.4-6.5); Hematocrit 36.6 % (39.0-52.0); Hemoglobin 11.8 g/dL (13.0-18.0); Mean Corp Hgb Conc. 32.2 g/dL (33.0-37.0); Mean Corpuscular Hgb 28.1 pg (27.0-31.0); Mean Corpuscular Volume 87.1 fL (80.0-94.0); Mean Platelet Volume 10.7 fL (7.4-10.4); Nucleated Red Blood Cells % 0 % (-); Platelet Count 165 10^3/uL (130-400); Red Cell Dist. Width 15.9 % (11.5-14.5); White Blood Cell Count 11.9 10^3/uL (4.8-10.8)
[2024-09-26 04:10] LABS: ALT (SGPT) 347 U/L (0-50); AST (SGOT) 312 U/L (17-59); Albumin 2.5 g/dl (3.5-5.0); Alkaline Phosphatase 486 U/L (38-126); Blood Urea Nitrogen 77 mg/dl (9-20); Calcium 7.2 mg/dl (8.4-10.2); Carbon Dioxide 18 mmol/L (22-30); Chloride 107 mmol/L (98-107); Estimated Creatinine Clearance 15 ml/min; Glucose 208 mg/dl (70-99); Potassium 4.4 mmol/L (3.5-5.1); Sodium 139 mmol/L (135-145); Total Bilirubin 0.9 mg/dl (0.2-1.3); Total Protein 5.1 g/dl (6.3-8.2); eGFR 10.77
--- NOTE | 2024-09-26 04:36 | PTCARENOTE ---
Patient reassessed. No changes. turns and repositioning continued. Safety measures maintained.
[2024-09-26] MEDS: NSS 1000 IV (05:35)
--- NOTE | 2024-09-26 07:28 | W.PN.HOSP.TC ---
Addendum entered and electronically signed by Ian Villegas DO 09/26/24 07:39:
Spoke with surgery, restart Aniceto 09/27 if no signs of bleeding.
Original Note:
Today's Communication/Plan
-
Out of bed
Dulcolax suppository
Minimize opiates
Bladder scan
Eliquis if okay with surgical service
Assessment / Plan
Assessment / Plan
Gen-AAOx3, NAD
HEENT-NC, AT, anicteric, clear oral mm
Neck-supple
CV-reg, no M, +S1/S2
Lungs-clear B/L
Abd-soft, less abdominal tenderness but very distended
Ext-no edema
Musculoskeletal-no cyanosis, clubbing
Skin-warm and dry
Neuro-grossly non-focal
Psych-calm, cooperative
Postoperative ileus -no bowel movement so far but patient is passing gas. Denies nausea or vomiting. Overall abdominal pain has improved but he is very distended. Minimize opiates. Out of bed to chair and ambulate with PT. Dulcolax suppository.
Discussed with nursing. Surgical service has advanced diet to diabetic.
Enterococcal Septic shock due to Calculus cholecystitis - repeat blood cultures negative. Antibiotics per ID. Sepsis improving. WBC count coming down. Afebrile.
Required vasopressors on 09/24, now off. Lactic acidosis due to sepsis, present on admission. Now improved.
Acute calculus cholecystitis - choledocholithiasis ruled out with intraoperative cholangiogram. Underwent laparoscopic cholecystectomy September 24, Gallbladder was noted to be severely inflamed and thickened with patchy necrosis.
Suspect right shoulder pain is referred due to gallbladder disease. Interesting that it started postoperatively.
DEQUAN on CKD 3b -etiology of DEQUAN possibly due to contrast-induced nephropathy, hypotension with ischemic ATN. Sepsis can also contribute. Nephrology following. Renal function unfortunately worsening. Getting aggressive IV fluid support, weight is
up 13 kg and would recommend discontinuing and giving IV Lasix.
Losartan on hold.
Acute hepatitis - likely due to sepsis, shock, ischemia. Transaminases coming down.
DM2 with hyperglycemia -hemoglobin A1c 8.9%, 09/06/2024. Glucose 208 this morning, 252 last night. Received 20 units of Lantus last night. Low resistance NovoLog scale.
At home he is on insulin degludec 44 units at bedtime, Jardiance 25 mg daily, tirzepatide 10 mg subcutaneously every Friday.
Increase Lantus to 25 units at bedtime. Add NovoLog 5 units with meals.
Chronic heart failure preserved EF -stable.
CAD -stable.
Paroxysmal atrial fibrillation -last dose of Eliquis was 09/22 AM. Resume Eliquis today if okay with surgical service, [place] text sent.
Essential hypertension -hold antihypertensives for low blood pressure.
Hyperlipidemia - Hold rosuvastatin for hepatitis.
History of prostate cancer -s/p TURP.
History of tachybradycardia syndrome -s/p pacemaker.
Diabetic peripheral neuropathy
BPH - With history of chronic bacterial prostatitis. Appreciate urology input. Unlikely to have prostatic abscess currently.
Gout -allopurinol.
Obesity due to excess calories
DNR
Dispo -SNF when medically stable.
Anticipated Discharge: > 48 hours
Subjective/Interval History
-
Date of Service: September 26, 2024
Patient seen and examined. Complaining of right shoulder pain.
Objective Data
-
Labs:
Laboratory Results
09/26/24
03:30
WBC 11.9 H
Hgb 11.8 L
Hct 36.6 L
Plt Count 165
Sodium 139
Potassium 4.4
Chloride 107
Carbon Dioxide 18 L
BUN 77 H
Creatinine 5.1 H*
Glucose 208 H
Calcium 7.2 L
Total Bilirubin 0.9
AST 312 H
ALT 347 H
Alkaline Phosphatase 486 H
Vital Signs:
Vital Signs
Temp Pulse Resp BP Pulse Ox
97.9 F 77 29 106/55 94
09/26/24 07:00 09/26/24 00:30 09/26/24 00:30 09/25/24 22:00 09/26/24 00:30
I&O
09/25/24 09/26/24 09/27/24
06:59 06:59 06:59
Intake Total 2298.9 / 2378.9 5850 / 5850
Output Total 290 / 290
Balance 2298.9 / 2378.9 5560 / 5560
Review of Systems
-
History Source: Patient
All other systems: Reviewed and negative
[2024-09-26] MEDS: MIRALAX 17 GRAMS PO (07:47)
[2024-09-26] MEDS: FLOMAX 0.4 MG PO (07:47)
[2024-09-26] MEDS: LEXAPRO 10 MG PO (07:47)
[2024-09-26] MEDS: PROTONIX 40 MG PO (07:47)
[2024-09-26] MEDS: ZYLOPRIM 300 MG PO (07:47)
[2024-09-26] MEDS: DESENEX/MITRAZOL/ZEASORB 1 APPLIC TOPICAL ×2 (07:48→21:14)
[2024-09-26] MEDS: DULCOLAX 10 MG RECTAL (07:48)
[2024-09-26] MEDS: PROSCAR 5 MG PO (07:48)
[2024-09-26] MEDS: ASPIR LOW (ENTERIC COATED) 81 MG PO (07:49)
[2024-09-26] MEDS: UNASYN IV ×2 (07:49→21:12)
--- NOTE | 2024-09-26 08:00 | PTCARENOTE ---
Received pt awake and alert.Speech is appropriate.+SHIELDS.Denies pain at this time.SR noted.IVF infusing as ordered.Decreased breath sounds throughout with crackles 1/2 up.+ orthopnea and tachypnea noted.POX 96% on RA.Appetite excellent.Abdomen
slightly distended.+ flatus.No BM.No void at this time.Bladder scan 296 ml.Abdominal puncture wounds intact without drainage.Plan of care discussed with pt.
--- NOTE | 2024-09-26 08:13 | W.PN.INTV ---
Today's Communication / Plan
Recommendations
Maintain MAP >65
Off vasopressors since 09/24/2024 in the evening
Antibiotics as per ID
Follow-up surveillance blood cultures which show NGTD
Goal BG 140�180 - raised ISS to moderate; may need to raise lantus dosing if BG >180
IVF stopped per nephro
Renally dose all medications/antibiotics and trend serum creatinine
May be heading towards HD - closely monitor K and HCO3 levels per nephro
Patient is stable for downgrade out of ICU to IMU - no additional recommendations at this time. Boiler/Chiller Technician/Pulmonary service will now sign off. Outpatient pulmonary office follow-up will be arranged with Dr. Godfrey. Please reconsult if there are
any additional questions/concerns, or if patient's respiratory status deteriorates.
Assessment
-
78-year-old male with a history of hypertension, hyperlipidemia, diabetes, BPH, prostate cancer, CAD, chronic heart failure preserved EF, atrial fibrillation presented with abdominal pain, found to have cholecystitis and underwent robotic assisted
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
Septic shock unresponsive to fluids requiring pressors � shock state resolved as of 09/24
Acute cholecystitis/ascending cholangitis
Status post robotic assisted laparoscopic cholecystectomy/cholangiogram-Dr. Vaca 09/24/09/24/24
Leukocytosis
DEQUAN
Elevated LFTs
Hyperglycemia
Hypoalbuminemia
DNR
Conditions present prior to admission:
Hypertension.
Hyperlipidemia.
CAD/stent LAD October 2021.
Chronic heart failure preserved EF.
Atrial fibrillation.
Tachybradycardia/permanent pacemaker.
PAD
BRYSON on CPAP 15 cm
Diabetes.
Neuropathy.
Chronic kidney disease stage III.
BPH.
Gout.
Prostate cancer
Left foot surgery. Cataract.
Plan
The patient was transferred to medical intensive care unit for persistent hypotension despite fluid resuscitation requiring pressors
Has remained off vasopressors since the evening of 09/24/2024
Supplement oxygen as needed
High flow oxygen if needed
BiPAP if necessary
Patient is a DNR
Aspiration precautions
Nebulizers if needed
Cultures reviewed
Blood cultures from 09/22/2024 has grown Enterococcus faecalis (pansensitive)
Surveillance blood cultures from 09/23/2024 shows NGTD
Empiric antibiotics- currently on Unasyn s/p vancomycin and Zosyn
Infectious disease following-correspondence reviewed
Monitor leukocytosis
Surgery following-correspondence reviewed
Operative records reviewed
Gastroenterology recs appreciated (GI signed off on 09/25)
Pain control
Monitor renal function
DEQUAN is likely related to recent shock state in the setting of acute cholecystitis/ascending cholangitis, and he also received IV contrast on 09/22/[address] abdomen/pelvis
Nephrology following
Renally dose all medications/antibiotics
Trend sCr and UOP --> patient was on IVF yesterday with NS 0.9% at 150cc/hr (increased from 80cc/hr) - IVF now stopped given risk of volume overload
Dr. Contreras renally adjusted the allopurinol from 300 mg daily to 50 mg daily; if patient's kidney status improves then can adjust allopurinol dose going forward
Urology consulted on 09/24/2024, and no intervention advised
Monitor blood sugar with goal BG 140�180
Insulin supplementation as needed
Raise ISS to moderate resistance and may need to increase Lantus dosing if blood glucose remains >180
DVT prophylaxis - start HSQ
GI prophylaxis-on pantoprazole (home medication)
Nutrition per surgery
Early mobilization/bedside range of motion
Patient follows with Dr. Menon in the office for sleep apnea-last saw Nora Starks CNP 09/07/24
Patient is stable for downgrade out of ICU to IMU -no additional recommendations at this time. Boiler/Chiller Technician/Pulmonary service will now sign off. Thank you for allowing us to be involved in the care of this patient. Please reconsult if there are
any additional questions/concerns, or if patient's respiratory status deteriorates.
Diagnostic data:
CT Chest 12/18/16: minimal scarring and/or atelectasis in the right upper and right middle lobe , vague area of ground glass opacity in the anterior right middle lobe suggesting near complete clearing of previous bronchitis or possible infection. No
mass or adenopathy, no pleural effusion..
CT abdomen and pelvis 09/22/24-gallbladder borderline distended with cholelithiasis and findings concerning for acute cholecystitis
Abdominal ultrasound 09/22/24-cholelithiasis, no evidence for acute cholecystitis, fatty infiltration of the liver
ECHO 12/02/22:� Normal left ventricular size, wall thickness and systolic function. Normal right ventricular size and function. No significant valvular disease. Compared to the previous echo 10/10/21 there is no significant change.��������
LHC 11/21/21:75-80 percent lesion in LAD with subtotal occlusion status post successful PCI and placement of drug-eluting stent, reduction in stenosis to 0%
HST 12/24/2021-[place]AYDEN-57.7, desaturation razia 76%, 15.7% of time spent less than 90% saturation
Total time spent today was 36 minutes for this encounter. Time includes reviewing laboratory test/imaging results, reviewing pertinent medical records, obtaining and reviewing medical history, performing an appropriate exam, ordering medications,
tests and procedures. Time also includes documentation of this encounter, coordinating patient care and communicating with other healthcare professionals. Total time does not include separately billed tests performed on this date of service.
Subjective Dataa
Subjective Data
Date of Service:
Date of Service: September 26, 2024
Chief Complaint: Boiler/Chiller Technician Follow Up
Subjective:
Patient seen this morning. Sitting in chair in no acute distress. He feels much better overall but still not back to baseline. BP 99/44, heart rate 70, and saturating 93% on room air. Creatinine continues to worsen, now 5.1 today. He denies
chest pain, MURRAY, nausea, fevers chills
Review of Systems
General: Other (Negative unless mentioned above)
Objective Data
Data Reviewed
Vital Signs / I&O / Oxygen:
Vital Signs
Temp Pulse Resp BP Pulse Ox
97.9 F 77 29 106/55 94
09/26/24 07:00 09/26/24 00:30 09/26/24 00:30 09/25/24 22:00 09/26/24 00:30
Intake and Output
09/25/24 09/26/24 09/27/24
06:59 06:59 06:59
Intake Total 2298.9 / 2378.9 5850 / 6000 1260 / 1260
Output Total 290 / 290
Balance 2298.9 / 2378.9 5560 / 5710 1260 / 1260
SaO2 94
Nasal Cannula flow liters per 4
minute
Physical Exam
General: Respiratory Distress (negative), Comfortable, Chills (negative) and Sweats (negative)
HEENT: Normocephalic, Anicteric and Other (Thick neck)
Cardiovascular: S1-S2 and Peripheral Edema (negative)
Respiratory: Wheeze (negative), Crackles (Bibasilar), Rhonchi (negative), Non-Labored Respirations and Other (Diminished breath sounds bilaterally)
GI: Soft, Distended (Abdominal obesity), Tender (Right upper quadrant) and Normal Bowel Sounds
Neurology: AO x 3 and Tremors (negative)
Skin: Warm, Dry, Cyanosis (negative) and Jaundice (negative)
Labs/Micro/Reports
Lab Data
09/26/24 03:30
09/26/24 03:30
Microbiology
09/23/24 09:36 Blood/Venous Blood Culture - Preliminary
No Growth in 72 hours- Final report to follow
09/22/24 15:11 Blood/Venous Blood Culture - Final
Enterococcus faecalis
09/22/24 15:11 Blood/Venous Gram Stain - Final
09/22/24 15:11 Blood/Venous Blood Culture - Preliminary
Enterococcus faecalis
09/22/24 15:11 Blood/Venous Gram Stain - Preliminary
09/23/24 11:03 Blood/Venous Blood Culture - Preliminary
No Growth in 48 hours- Final report to follow
[2024-09-26] MEDS: NOVOLOG FLEXPEN 5 UNITS SC ×3 (08:15→17:29)
[2024-09-26] MEDS: NOVOLOG FLEXPEN-LOW RESISTANCE 2 UNITS SC (08:15)
[2024-09-26 08:16] LABS: Glucose - Point of Care 200 mg/dl (70-99)
[2024-09-26] MEDS: LASIX 160 MG IV (08:20)
--- NOTE | 2024-09-26 08:54 | W.PN.ID1 ---
Date of Service
Date of Service: September 26, 2024
Today's Communication
Continue antibiotics.
Assessment / Plan
Leukocytosis
Bacteremia (Enterococcus faecalis)
Acute cholecystitis +/- ascending cholangitis
- s/p cholecystectomy (09/24/2024)
DEQUAN on CKD
Elevated bilirubin
Transaminitis
A-fib
CAD
Hx squamous cell CA of the face
CHF
HTN
HLD
DM
Renal insufficiency
Gout
Recommendations:
Leukocytosis improving althoughAKI worsening; Cr. = 5.1 / Est CrCl=15
Continue Unasyn dosed for renal insufficiency
Repeat blood cultures have been obtained; following for clearance.
Continue with supportive care.
Monitor white count and temperature curve.
����������������������������������������������������������
Chief Complaint
-: Bacteremia and Other (Cholecystitis)
Subjective / Review of Systems
Review of Systems: No Fever and No Chills
Vital Signs / Physical Exam
Vital Signs
Vital Signs
Temp Pulse Resp BP Pulse Ox
97.9 F 77 29 106/55 94
09/26/24 07:00 09/26/24 00:30 09/26/24 00:30 09/25/24 22:00 09/26/24 00:30
Physical Exam
Constitutional: Comfortable, Non-toxic and Obese
Eyes: Sclera Anicteric
Cardiovascular: Regular Rate and S1/S2; Negative S3/S4
Pulmonary: Non Labored
Gastrointestinal: Soft, Tender, Decreased Bowel Sounds, No Rebound and No Guarding
Genito-Urinary: Negative Suprapubic Tenderness
Extremities: Negative Cyanosis or Erythema
Skin: Warm and Dry; Negative Rash
Wound: Other (Abdominal trocar wounds C/D/I)
Neurological: Awake and Alert
Psychological: Calm
Objective Data
Lab Data
Lab Results
09/26/24 03:30
09/26/24 03:30
Estimated Creat Clear 15 ml/min 09/26/24 03:30
Lactic Acid Cancelled 09/23/24 06:00
Total Bilirubin 0.9 mg/dl (0.2-1.3) 09/26/24 03:30
AST 312 U/L (17-59) H 09/26/24 03:30
ALT 347 U/L (0-50) H 09/26/24 03:30
Alkaline Phosphatase 486 U/L (38-126) H 09/26/24 03:30
Most recent labs reviewed.
Micro Results:
09/22/24 15:11 Blood Culture - Preliminary
Blood/Venous Enterococcus faecalis
Gram Stain - Preliminary
09/22/24 15:11 Blood Culture - Preliminary
Blood/Venous Enterococcus faecalis
Gram Stain - Preliminary
09/23/24 11:03 Blood Culture - Preliminary
Blood/Venous No Growth in 48 hours- Final report to follow
09/23/24 09:36 Blood Culture - Preliminary
Blood/Venous No Growth in 48 hours- Final report to follow
Blood Culture Preliminary 09/22/2024
Enterococcus faecalis
Organism 1 Enterococcus faecalis
1. Enterococcus faecalis
M.I.C. RX
--------- ---
Ampicillin <=2 S
Gentamicin Synergy Screen <=500 S
Vancomycin 1 S
Imaging:
09/22/24 Abdominal ultrasound: Numerous small gallstones. Gallbladder wall thickness is top normal. No cholecystic fluid. Negative sonographic Hoyos sign.
09/22/2024 CT abdomen/pelvis: Gallbladder appears borderline distended with cholelithiasis and surrounding stranding concerning for acute cholecystitis. Urinary bladder is mildly distended. There is mild prostamegaly with intravesicular protrusion.
Please see full dictation for additional detail.
Care Review
Plan reviewed with: Nurse and Physician (Hospitalist)
[2024-09-26] MEDS: ULTRAM 25 MG PO (09:59)
--- NOTE | 2024-09-26 10:21 | W.PN.NEPH.PH ---
Today's Communication / Plan
-
Lasix 160 mg
Discontinue IV fluid
Assessment/Plan
-
78 yo man with hx atrial fibrillation on Eliquis, tachy-steve syndrome s/p PPM, HFpEF, CAD s/p PCI 11/14, essential HTN, HLD, CKD, DM, prostate CA s/p TURP presents to the ER with abdominal pain. Subsequently found to have cholecystitis status
post laparoscopic cholecystectomy.
Renal consult for acute on chronic kidney disease with baseline creatinine of 1.7-1.9 and creatinine on consultation 4.3 oligoanuric on pressor
Follows in our office for chronic kidney disease with Dr. Lopes
Impression.
Acute on chronic kidney disease with a creatinine of 4.3 on consultation 24 hours postop with baseline creatinine 1.7
Sepsis status postcholecystectomy
Enterococcal Septic shock bacteremia
Atrial fibrillation
Type 2 diabetes
Plan.
Off pressor support
Antibiotics per ID
DEQUAN multifactorial but most likely hemodynamic mediated and hypotension and ATN.
No urine retention on bladder scan
Check urinalysis
Creatinine continues to increase. Currently 5.1
Overall positive fluid balance oliguric.
Discontinue IV fluids and give 160 mg IV Lasix
Patient is aware that he may need dialysis as this was discussed with him and his
No acute need for dialysis at this time

33 minutes of critical care time
-
-
Date of Service: September 26, 2024
CC / HPI / ROS
-
Chief Complaint:
Bacteremia cholecystitis
History of Present Illness:
Acute on chronic kidney disease secondary to bacteremia septic shock
Review of Systems:
No chest pain or shortness of breath
Scrotal swelling
Labs
-
Labs:
WBC 11.9 10^3/uL (4.8-10.8) H 09/26/24 03:30
RBC 4.20 10^6/uL (4.70-6.10) L 09/26/24 03:30
Hgb 11.8 g/dL (13.0-18.0) L 09/26/24 03:30
Hct 36.6 % (39.0-52.0) L 09/26/24 03:30
Plt Count 165 10^3/uL (130-400) 09/26/24 03:30
Sodium 139 mmol/L (135-145) 09/26/24 03:30
Potassium 4.4 mmol/L (3.5-5.1) 09/26/24 03:30
Chloride 107 mmol/L (98-107) 09/26/24 03:30
Carbon Dioxide 18 mmol/L (22-30) L 09/26/24 03:30
BUN 77 mg/dl (9-20) H 09/26/24 03:30
Creatinine 5.1 mg/dL (0.7-1.3) H* 09/26/24 03:30
eGFR 10.77 09/26/24 03:30
Glucose 208 mg/dl (70-99) H 09/26/24 03:30
Calcium 7.2 mg/dl (8.4-10.2) L 09/26/24 03:30
Albumin 2.5 g/dl (3.5-5.0) L 09/26/24 03:30
Physical Exam
-
Vital Signs:
Vital Signs
Temp Pulse Resp BP Pulse Ox
97.9 F 77 29 106/55 94
09/26/24 07:00 09/26/24 00:30 09/26/24 00:30 09/25/24 22:00 09/26/24 00:30
Respiratory:: Bilateral: Coarse
Lung Excursion:: Normal
Abdomen:: Soft
Bowel Sounds:: Decreased
Extremity Edema:: +1: Bilateral:
Gray Catheter: No
--- NOTE | 2024-09-26 10:44 | W.PN.GS2 ---
Addendum entered and electronically signed by Aries Vaca MD 09/26/24 10:56:
I saw and examined the patient.
The Director Toxicology's note was reviewed and I agree with the note.
Comment: Remains off pressors, WBC improving. Making some urine, Cr rising, Nephrology following. Pain controlled, tolerating diet with no issues. OK for step down. GS will follow peripherally.
Original Note:
Today's Communication / Plan
-
continue diet
nephrology managing creatinine
Assessment / Plan
-
78 yo diabetic male with h/o afib on Eliquis (LD 09/22) with enterococcus bacteremia secondary to ACC
POD #2 robotic cholecystectomy with IOC demonstrating patent CBD without choledocholithiasis. Necrotic/gangrenous gallbladder noted
Hypotensive perioperatively on pressors, now resolved and pressors weaned off
DEQUAN on CKD, nephrology following. Cr trending up. 5.1 (4.3)
Leukocytosis trending down - 11.9 (12.9)
--Continue with AC on hold for 48-72h post operatively
--Continue 1800 katherine diet. Miralax PRN.
--Analgesics as needed, hospitalist managing
--ABX as per ID
--OOB as able
--OR pathology pending
--Nephrology managing creatinine - checking UA, d/c IVs, 160mg IV lasix, ?dialysis
--Okay to downgrade today or tomorrow from our perspective if remains off presser
Subjective Data
-
Date of Service: September 26, 2024
Patient states he feels well. He denies nausea or vomiting. He ate breakfast without difficulty. His pain is controlled. He is out of bed to a chair.
Objective Data
-
Intake and Output
09/25/24 09/26/24 09/27/24
06:59 06:59 06:59
Intake Total 2298.9 / 2378.9 5850 / 6000 1260 / 1260
Output Total 290 / 290
Balance 2298.9 / 2378.9 5560 / 5710 1260 / 1260
Intake:
Oral fluids 960 / 960 2100 / 2100 960 / 960
IV fluids (Total) 1338.9 / 1418.9 3250 / 3400 300 / 300
Normosol 200 / 200
Nss 1,000 ml @ 150 mls/hr IV . 2850 / 3000 300 / 300
Q6H40M KATERIN Rx#:[id number]
Nss 1,000 ml @ 80 mls/hr IV . 1120 / 1200 400 / 400
[id number] KATERIN Rx#:[id number]
levo 18.9 / 18.9
IV piggybacks 500 / 500
Output:
Urine, Voided 290 / 290
Other:
Number of approximated MODERATE 2
amounts of urine
Vital Signs
Temp Pulse Resp BP Pulse Ox
97.9 F 76 43 108/86 96
09/26/24 07:00 09/26/24 10:15 09/26/24 10:15 09/26/24 10:00 09/26/24 10:26
Lab Results
09/26/24 03:30
09/26/24 03:30
Calcium 7.2 mg/dl (8.4-10.2) L 09/26/24 03:30
Magnesium 2.3 mg/dl (1.6-2.3) 09/23/24 07:18
Total Bilirubin 0.9 mg/dl (0.2-1.3) 09/26/24 03:30
Direct Bilirubin 0.8 mg/dl (0.0-0.4) H 09/23/24 07:18
AST 312 U/L (17-59) H 09/26/24 03:30
ALT 347 U/L (0-50) H 09/26/24 03:30
Alkaline Phosphatase 486 U/L (38-126) H 09/26/24 03:30
Total Protein 5.1 g/dl (6.3-8.2) L 09/26/24 03:30
Albumin 2.5 g/dl (3.5-5.0) L 09/26/24 03:30
Physical Exam
-
Gen: NAD
Abd: soft, mildly tender in RUQ, morbid obesity, no diffuse peritonitis
Incisions c/d/i
--- NOTE | 2024-09-26 12:00 | PTCARENOTE ---
Pt assessed.1000-Pt assisted OOB to chair with 2 person max assist.Requested and received Tramadol for shoulder pain.Attempted BM unsuccessfully.No void at this time.Renal MD made aware.
[2024-09-26 12:02] LABS: Glucose - Point of Care 176 mg/dl (70-99)
[2024-09-26] MEDS: NOVOLOG FLEXPEN-LOW RESISTANCE 1 UNITS SC (12:17)
--- NOTE | 2024-09-26 13:24 | W.PN.URO.CBU ---
Today's Communication / Plan
-
Rec: no urology intervention currently advised; outpatient urine C&S after completion of current course of antibiotics
signing off
Assessment / Plan
-
Prostate enlargement with h/o chronic bacterial prostatitis apparently satisfactorily corrected by TURP during 2019.
Quiescent prostate cancer
current UA does not show nitrates, leukocyte esterase, significant WBCs -- bacterial prostatic abscess appears unlikely; no specimen was submitted for urine culture
Diagnosis
-
Date of Service: September 26, 2024
-
Patient Diagnosis:
Prostate enlargement with h/o chronic bacterial prostatitis apparently satisfactorily corrected by TURP during 2019.
Quiescent prostate cancer
Subjective
-
no voiding bother [dysuria, hematuria, frequency, urgency]
Objective
-
Vital Signs
Temp Pulse Resp BP Pulse Ox
98.2 F 72 20 108/64 94
09/26/24 11:48 09/26/24 12:30 09/26/24 12:30 09/26/24 12:00 09/26/24 12:15
Intake and Output
09/25/24 09/26/24 09/27/24
06:59 06:59 06:59
Intake Total 2298.9 / 2378.9 5850 / 6000 1260 / 1260
Output Total 290 / 290
Balance 2298.9 / 2378.9 5560 / 5710 1260 / 1260
Intake:
Oral fluids 960 / 960 2100 / 2100 960 / 960
IV fluids (Total) 1338.9 / 1418.9 3250 / 3400 300 / 300
Normosol 200 / 200
Nss 1,000 ml @ 150 mls/hr IV . 2850 / 3000 300 / 300
Q6H40M KATERIN Rx#:[id number]
Nss 1,000 ml @ 80 mls/hr IV . 1120 / 1200 400 / 400
[id number] KATERIN Rx#:[id number]
levo 18.9 / 18.9
IV piggybacks 500 / 500
Output:
Urine, Voided 290 / 290
Other:
Number of approximated MODERATE 2
amounts of urine
Laboratory Results
09/26/24 03:30
09/26/24 03:30
Physical Exam
-
General - seated in lounger eating lunch; at bedside
[2024-09-26 17:29] LABS: Glucose - Point of Care 142 mg/dl (70-99)
[2024-09-26] MEDS: NOVOLOG FLEXPEN-MODERATE RESISTANCE SC (17:29)
[2024-09-26] MEDS: HEPARIN 5000 UNITS SC (17:33)
[2024-09-26 18:35] LABS: Venous Blood Gas B.E. -8.8 mmol/L (-4 to +4); Venous Blood Gas HCO3 17.4 mmol/L (22-27); Venous Blood Gas O2 Sat % 98.3 %; Venous Blood Gas pCO2 38 mmHg (35-48); Venous Blood Gas pH 7.27 (7.32-7.43); Venous Blood Gas pO2 141 mmHg (30-50)
[2024-09-26 19:10] LABS: Blood Urea Nitrogen 84 mg/dl (9-20); Calcium 7.2 mg/dl (8.4-10.2); Carbon Dioxide 17 mmol/L (22-30); Chloride 106 mmol/L (98-107); Estimated Creatinine Clearance 15 ml/min; Glucose 188 mg/dl (70-99); Potassium 4.4 mmol/L (3.5-5.1); Sodium 137 mmol/L (135-145); eGFR 10.06
--- NOTE | 2024-09-26 20:00 | PTCARENOTE ---
rec`d pt at 1900 AAOx3. several BMs, last one- incontinent of liquid brown stool. rectal trumpet placed. otherwise, assessment as documented. RA. scds. continent of urine in urinal. 5 sx wounds c/d/i. call parker in reach, safe environment maintained.
[2024-09-26] MEDS: LANTUS 0.25 UNITS SC (21:14)
[2024-09-26 21:15] LABS: Glucose - Point of Care 329 mg/dl (70-99)
[2024-09-27] VITALS (15 sets, daily range): BP systolic 90–137; BP diastolic 62–104; PULSE 81; O2SAT 95; BMI 36.7
[2024-09-27] MEDS: HEPARIN SC ×4 (00:32→08:14)
--- NOTE | 2024-09-27 02:41 | PTCARENOTE ---
pt transferred to IMU. hearing aids, rolling walker and pt`s shoes taken down to IMU.
[2024-09-27 04:32] LABS: % Basophils 0.1 % (0-2); % Eosinophils 0.3 % (0-6); % Immature Granulocytes 0.6 % (0-0.5); % Lymphocytes 5.4 % (20.5-51.1); % Monocytes 5.9 % (1.7-9.3); % Neutrophils 87.7 % (42.2-75.2); Absolute Immature Granulocytes 0.1 10^3/uL (0-0.05); Absolute Lymphocytes 0.5 10^3/uL (1.2-3.4); Absolute Monocytes 0.6 10^3/uL (0.1-0.6); Absolute Neutrophils 8.9 10^3/uL (1.4-6.5); Hemoglobin 11.2 g/dL (13.0-18.0); Mean Corp Hgb Conc. 32.9 g/dL (33.0-37.0); Mean Corpuscular Hgb 28.3 pg (27.0-31.0); Mean Corpuscular Volume 85.9 fL (80.0-94.0); Mean Platelet Volume 10.5 fL (7.4-10.4); Nucleated Red Blood Cells % 0 % (-); Platelet Count 151 10^3/uL (130-400); Red Blood Cell Count 3.96 10^6/uL (4.70-6.10); Red Cell Dist. Width 15.9 % (11.5-14.5); White Blood Cell Count 10.1 10^3/uL (4.8-10.8)
[2024-09-27 05:26] LABS: ALT (SGPT) 332 U/L (0-50); AST (SGOT) 379 U/L (17-59); Albumin 2.3 g/dl (3.5-5.0); Alkaline Phosphatase 584 U/L (38-126); Blood Urea Nitrogen 88 mg/dl (9-20); Calcium 7.5 mg/dl (8.4-10.2); Carbon Dioxide 17 mmol/L (22-30); Chloride 108 mmol/L (98-107); Estimated Creatinine Clearance 14 ml/min; Glucose 154 mg/dl (70-99); Magnesium 2.6 mg/dl (1.6-2.3); Phosphorus 6.2 mg/dl (2.5-4.5); Potassium 4.6 mmol/L (3.5-5.1); Sodium 138 mmol/L (135-145); Total Bilirubin 0.9 mg/dl (0.2-1.3); Total Protein 4.7 g/dl (6.3-8.2); eGFR 9.42
[2024-09-27 07:52] LABS: Glucose - Point of Care 157 mg/dl (70-99)
[2024-09-27] MEDS: NOVOLOG FLEXPEN 5 UNITS SC ×3 (08:04→17:19)
[2024-09-27] MEDS: LEXAPRO 10 MG PO (08:05)
[2024-09-27] MEDS: NOVOLOG FLEXPEN-MODERATE RESISTANCE 1 UNITS SC ×2 (08:05→12:48)
[2024-09-27] MEDS: ZYLOPRIM 50 MG PO (08:05)
[2024-09-27] MEDS: PROSCAR 5 MG PO (08:06)
[2024-09-27] MEDS: FLOMAX 0.4 MG PO (08:06)
[2024-09-27] MEDS: PROTONIX 40 MG PO (08:06)
[2024-09-27] MEDS: ASPIR LOW (ENTERIC COATED) 81 MG PO (08:06)
[2024-09-27] MEDS: DESENEX/MITRAZOL/ZEASORB 1 APPLIC TOPICAL ×2 (08:06→21:15)
[2024-09-27] MEDS: UNASYN IV (08:07)
--- NOTE | 2024-09-27 11:06 | W.PN.ID1 ---
Date of Service
Date of Service: September 27, 2024
Today's Communication
Continue antibiotics. See below�
Assessment / Plan
Leukocytosis
Bacteremia (Enterococcus faecalis)
Acute cholecystitis +/- ascending cholangitis
- s/p cholecystectomy (09/24/2024)
DEQUAN on CKD
Elevated bilirubin
Transaminitis
A-fib
CAD
Hx squamous cell CA of the face
CHF
HTN
HLD
DM
Renal insufficiency
Gout
Recommendations:
Leukocytosis normalized.
Creatinine continues to rise.; Cr. = 5.7 / Est CrCl=14
Narrow to ampicillin dosed for renal insufficiency.
Repeat blood cultures without growth.
Continue with supportive care.
Monitor white count, temperature curve and creatinine.
����������������������������������������������������������
Chief Complaint
-: Bacteremia and Other (Cholecystitis)
Subjective / Review of Systems
Review of Systems: No Fever and No Chills
Vital Signs / Physical Exam
Vital Signs
Vital Signs
Temp Pulse Resp BP Pulse Ox
97.7 F 80 28 92/72 94
09/27/24 07:20 09/27/24 08:00 09/27/24 08:00 09/27/24 08:00 09/27/24 09:30
Physical Exam
Constitutional: Comfortable, Non-toxic and Obese
Eyes: Sclera Anicteric
Cardiovascular: Regular Rate and S1/S2; Negative S3/S4
Pulmonary: Non Labored
Gastrointestinal: Soft, Tender and Normal Bowel Sounds
Genito-Urinary: Negative Suprapubic Tenderness
Extremities: Negative Cyanosis or Erythema
Skin: Warm and Dry; Negative Rash
Wound: Other (Abdominal trocar wounds C/D/I)
Neurological: Awake and Alert
Psychological: Calm
Objective Data
Lab Data
Lab Results
09/27/24 04:19
09/27/24 04:19
Estimated Creat Clear 14 ml/min 09/27/24 04:19
Lactic Acid Cancelled 09/23/24 06:00
Total Bilirubin 0.9 mg/dl (0.2-1.3) 09/27/24 04:19
AST 379 U/L (17-59) H 09/27/24 04:19
ALT 332 U/L (0-50) H 09/27/24 04:19
Alkaline Phosphatase 584 U/L (38-126) H 09/27/24 04:19
Most recent labs reviewed.
Micro Results:
09/23/24 09:36 Blood Culture - Preliminary
Blood/Venous No Growth in 4 days- Final report to follow
09/23/24 11:03 Blood Culture - Preliminary
Blood/Venous No Growth in 72 hours- Final report to follow
09/22/24 15:11 Blood Culture - Final
Blood/Venous Enterococcus faecalis
Gram Stain - Final
09/22/24 15:11 Blood Culture - Preliminary
Blood/Venous Enterococcus faecalis
Gram Stain - Preliminary
Blood Culture Preliminary 09/22/2024
Enterococcus faecalis
Organism 1 Enterococcus faecalis
1. Enterococcus faecalis
M.I.C. RX
--------- ---
Ampicillin <=2 S
Gentamicin Synergy Screen <=500 S
Vancomycin 1 S
Imaging:
09/22/24 Abdominal ultrasound: Numerous small gallstones. Gallbladder wall thickness is top normal. No cholecystic fluid. Negative sonographic Hoyos sign.
09/22/2024 CT abdomen/pelvis: Gallbladder appears borderline distended with cholelithiasis and surrounding stranding concerning for acute cholecystitis. Urinary bladder is mildly distended. There is mild prostamegaly with intravesicular protrusion.
Please see full dictation for additional detail.
--- NOTE | 2024-09-27 11:18 | W.PN.NEPH.PH ---
Today's Communication / Plan
-
follow BMP
Assessment/Plan
-
78 yo man with hx atrial fibrillation on Eliquis, tachy-steve syndrome s/p PPM, HFpEF, CAD s/p PCI 11/14, essential HTN, HLD, CKD, DM, prostate CA s/p TURP presents to the ER with abdominal pain. Subsequently found to have cholecystitis status
post laparoscopic cholecystectomy.
Renal consult for acute on chronic kidney disease with baseline creatinine of 1.7-1.9 and creatinine on consultation 4.3 oligoanuric on pressor
Follows in our office for chronic kidney disease with Dr. Lopes
Impression.
CKD 3b baseline creatinine 1.7
DEQUAN
Sepsis status post cholecystectomy
Enterococcal Septic shock
Atrial fibrillation
Type 2 diabetes
Plan.
follow BMP
no emergent HD needs, but may need dialysis in the next 1-2days
he understands and would accept dialysis if needed
no IVF today
-
-
Date of Service: September 27, 2024
CC / HPI / ROS
-
Chief Complaint:
Bacteremia cholecystitis
History of Present Illness:
DEQUAN/Cr worse to 5.7
acidosis persists 17
BP stable low
nonoliguric
Review of Systems:
No chest pain or shortness of breath
Labs
-
Labs:
WBC 10.1 10^3/uL (4.8-10.8) 09/27/24 04:19
RBC 3.96 10^6/uL (4.70-6.10) L 09/27/24 04:19
Hgb 11.2 g/dL (13.0-18.0) L 09/27/24 04:19
Hct 34.0 % (39.0-52.0) L 09/27/24 04:19
Plt Count 151 10^3/uL (130-400) 09/27/24 04:19
Sodium 138 mmol/L (135-145) 09/27/24 04:19
Potassium 4.6 mmol/L (3.5-5.1) 09/27/24 04:19
Chloride 108 mmol/L (98-107) H 09/27/24 04:19
Carbon Dioxide 17 mmol/L (22-30) L 09/27/24 04:19
BUN 88 mg/dl (9-20) H 09/27/24 04:19
Creatinine 5.7 mg/dL (0.7-1.3) H* 09/27/24 04:19
eGFR 9.42 09/27/24 04:19
Glucose 154 mg/dl (70-99) H 09/27/24 04:19
Calcium 7.5 mg/dl (8.4-10.2) L 09/27/24 04:19
Phosphorus 6.2 mg/dl (2.5-4.5) H 09/27/24 04:19
Albumin 2.3 g/dl (3.5-5.0) L 09/27/24 04:19
Physical Exam
-
Vital Signs:
Vital Signs
Temp Pulse Resp BP Pulse Ox
97.7 F 80 28 92/72 94
09/27/24 07:20 09/27/24 08:00 09/27/24 08:00 09/27/24 08:00 09/27/24 09:30
Cardiovascular:: Regular rate and rhythm
Respiratory:: Bilateral: Coarse
Lung Excursion:: Normal
Abdomen:: Nontender and Soft
Bowel Sounds:: Normal
Extremity Edema:: None: Bilateral:
[2024-09-27 11:56] LABS: Glucose - Point of Care 188 mg/dl (70-99)
--- NOTE | 2024-09-27 14:16 | W.PN.HOSP.TC ---
Today's Communication/Plan
-
Monitor vital signs
see plan
Monitor renal function closely
Continue antibiotic
Discussed with spouse at bedside
Assessment / Plan
Assessment / Plan
Gen-AAOx3, NAD
HEENT-NC, AT, anicteric, clear oral mm
Neck-supple
CV-reg, no M, +S1/S2
Lungs-clear B/L
Abd-soft, less abdominal tenderness but very distended
Ext-no edema
Musculoskeletal-no cyanosis, clubbing
Skin-warm and dry
Neuro-grossly non-focal
Psych-calm, cooperative
Postoperative ileus -no bowel movement so far but patient is passing gas. Denies nausea or vomiting. Overall abdominal pain has improved but he is very distended. Minimize opiates. Out of bed to chair and ambulate with PT. Dulcolax suppository.
Discussed with nursing. Surgical service has advanced diet to diabetic.
Enterococcal Septic shock due to Calculus cholecystitis - repeat blood cultures negative. Antibiotics per ID. Sepsis improving. WBC count coming down. Afebrile.
Required vasopressors on 09/24, now off. Lactic acidosis due to sepsis, present on admission. Now improved.
Acute calculus cholecystitis - choledocholithiasis ruled out with intraoperative cholangiogram. Underwent laparoscopic cholecystectomy September 24, Gallbladder was noted to be severely inflamed and thickened with patchy necrosis.
Suspect right shoulder pain is referred due to gallbladder disease. Interesting that it started postoperatively.
DEQUAN on CKD 3b -etiology of DEQUAN possibly due to contrast-induced nephropathy, hypotension with ischemic ATN. Sepsis can also contribute. Nephrology following. Renal function unfortunately worsening. Monitor volume status closely
Nephrology following
Losartan on hold.
Acute hepatitis - likely due to sepsis, shock, ischemia. Transaminases coming down.
DM2 with hyperglycemia -hemoglobin A1c 8.9%, 09/06/2024.
At home he is on insulin degludec 44 units at bedtime, Jardiance 25 mg daily, tirzepatide 10 mg subcutaneously every Friday.
Increase Lantus to 25 units at bedtime. Add NovoLog 5 units with meals.
Chronic heart failure preserved EF -stable.
CAD -stable.
Paroxysmal atrial fibrillation -last dose of Eliquis was 4/30 AM. Resume Eliquis possibly tomorrow if continues to improve as may need HD catheter
Hyperphosphatemia
Monitor
Essential hypertension -hold antihypertensives for low blood pressure.
Hyperlipidemia - Hold rosuvastatin for hepatitis.
History of prostate cancer -s/p TURP.
History of tachybradycardia syndrome -s/p pacemaker.
Diabetic peripheral neuropathy
BPH - With history of chronic bacterial prostatitis. Appreciate urology input. Unlikely to have prostatic abscess currently.
Gout -allopurinol.
Obesity due to excess calories
DNR
Dispo -SNF when medically stable.
I spent a total of 52 minutes with the patient or on the floor. More than 50% of this time involved counseling and coordination of care.
Anticipated Discharge: 24 - 48 hours
Subjective/Interval History
-
Date of Service: September 27, 2024
denies pain
Objective Data
-
Labs:
Laboratory Results
09/27/24
04:19
WBC 10.1
Hgb 11.2 L
Hct 34.0 L
Plt Count 151
Sodium 138
Potassium 4.6
Chloride 108 H
Carbon Dioxide 17 L
BUN 88 H
Creatinine 5.7 H*
Glucose 154 H
Calcium 7.5 L
Total Bilirubin 0.9
AST 379 H
ALT 332 H
Alkaline Phosphatase 584 H
Vital Signs:
Vital Signs
Temp Pulse Resp BP Pulse Ox
97.7 F 80 28 92/72 94
09/27/24 07:20 09/27/24 08:00 09/27/24 08:00 09/27/24 08:00 09/27/24 09:30
I&O
09/26/24 09/27/24 09/28/24
06:59 06:59 06:59
Intake Total 5850 / 6000 1260 / 1260
Output Total 290 / 290 150 / 150
Balance 5560 / 5710 1110 / 1110
--- NOTE | 2024-09-27 17:03 | CM ---
Patient with Dx Acute calculus cholecystitis who is s/p laparoscopic yg., DEQUAN. Per nephrology notes may need dialysis in the next 1-2 days. Room air. Receiving IV Abx. PT/OT ; requires assist of 2, recommend skilled rehab.
Met with patient and Elvia; wanted to discuss short term rehab and prefers [facility]. Advised patient/ that we will need to see if patient will be started on HD as there only a few SNFs that provide in-house HD, and
[facility] is not one of them. Patient seemed emotional/tearful at prospect of needing HD. Emotional support provided.
Plan follow for possible HD needs.
Plan will need SNF referrals once HD needs are determined.
[2024-09-27] MEDS: HEPARIN 5000 UNITS SC (17:17)
[2024-09-27] MEDS: NOVOLOG FLEXPEN-MODERATE RESISTANCE 3 UNITS SC (17:20)
[2024-09-27] MEDS: LANTUS 0.25 UNITS SC (17:26)
[2024-09-27 17:32] LABS: Glucose - Point of Care 222 mg/dl (70-99)
--- NOTE | 2024-09-27 19:52 | PTCARENOTE ---
see nursing flowsheet. pt oob to chair this am. appetite good. no c/o incisional pain. pt voided 375 mls. bladder scan pvr of 115. dr castro spoke with pts about potential needfor dialysis. pt noted to have mild hand tremors this afternoon amd is
drowsy but awakens easily.
[2024-09-27] MEDS: AMPICILLIN 108 MG IV (21:15)
[2024-09-28] VITALS (15 sets, daily range): BP systolic 74–161; BP diastolic 46–133
[2024-09-28] MEDS: HEPARIN 5000 UNITS SC ×3 (00:32→17:53)
--- NOTE | 2024-09-28 05:22 | PTCARENOTE ---
assumed care of pt from sarkis RN. Pt aaox3, but forgetful. SPOKANE. Pt NSR on monitor. 95% on RA. Pt voided 200 mL of yellow urine into urinal. Pt OOB x2 to BSC, pt had loose liquid bowel movement. Hygiene completed. Pt resting in bed with call parker
in reach.
[2024-09-28 06:11] LABS: % Basophils 0.1 % (0-2); % Eosinophils 1.3 % (0-6); % Immature Granulocytes 0.8 % (0-0.5); % Lymphocytes 9.6 % (20.5-51.1); % Monocytes 6.4 % (1.7-9.3); % Neutrophils 81.8 % (42.2-75.2); Absolute Eosinophils 0.1 10^3/uL (0-0.7); Absolute Immature Granulocytes 0.1 10^3/uL (0-0.05); Absolute Lymphocytes 0.9 10^3/uL (1.2-3.4); Absolute Monocytes 0.6 10^3/uL (0.1-0.6); Absolute Neutrophils 7.3 10^3/uL (1.4-6.5); Hematocrit 33.6 % (39.0-52.0); Mean Corp Hgb Conc. 32.7 g/dL (33.0-37.0); Mean Corpuscular Hgb 28.2 pg (27.0-31.0); Mean Corpuscular Volume 86.2 fL (80.0-94.0); Mean Platelet Volume 11.5 fL (7.4-10.4); Nucleated Red Blood Cells % 0 % (-); Platelet Count 166 10^3/uL (130-400); Red Cell Dist. Width 16.1 % (11.5-14.5)
[2024-09-28 06:14] LABS: INR 1.37; PT 17.2 Sec (11.4-14.6)
[2024-09-28 06:34] LABS: ALT (SGPT) 293 U/L (0-50); AST (SGOT) 264 U/L (17-59); Albumin 2.5 g/dl (3.5-5.0); Alkaline Phosphatase 668 U/L (38-126); Blood Urea Nitrogen 99 mg/dl (9-20); Calcium 7.7 mg/dl (8.4-10.2); Carbon Dioxide 16 mmol/L (22-30); Chloride 106 mmol/L (98-107); Estimated Creatinine Clearance 13 ml/min; Glucose 147 mg/dl (70-99); Potassium 4.9 mmol/L (3.5-5.1); Sodium 138 mmol/L (135-145); Total Bilirubin 1.1 mg/dl (0.2-1.3); Total Protein 5.1 g/dl (6.3-8.2); eGFR 8.05
[2024-09-28 08:21] LABS: Glucose - Point of Care 145 mg/dl (70-99)
[2024-09-28] MEDS: NOVOLOG FLEXPEN-MODERATE RESISTANCE SC ×3 (08:28→16:01)
[2024-09-28] MEDS: AMPICILLIN 108 MG IV ×2 (08:29→20:31)
[2024-09-28] MEDS: ASPIR LOW (ENTERIC COATED) 81 MG PO (08:30)
[2024-09-28] MEDS: PROSCAR 5 MG PO (08:30)
[2024-09-28] MEDS: FLOMAX 0.4 MG PO (08:30)
[2024-09-28] MEDS: PROTONIX 40 MG PO (08:30)
[2024-09-28] MEDS: NOVOLOG FLEXPEN 5 UNITS SC (08:31)
[2024-09-28] MEDS: LEXAPRO 10 MG PO (08:31)
[2024-09-28] MEDS: DESENEX/MITRAZOL/ZEASORB 1 APPLIC TOPICAL ×2 (08:31→21:19)
--- NOTE | 2024-09-28 08:49 | W.PN.ID1 ---
Date of Service
Date of Service: September 28, 2024
Today's Communication
Continue antibiotics.
Assessment / Plan
Leukocytosis
Bacteremia (Enterococcus faecalis)
Acute cholecystitis +/- ascending cholangitis
- s/p cholecystectomy (09/24/2024)
DEQUAN on CKD
Elevated bilirubin
Transaminitis
A-fib
CAD
Hx squamous cell CA of the face
CHF
HTN
HLD
DM
Renal insufficiency
Gout
Recommendations:
Leukocytosis normalized.
Creatinine continues to rise.; Cr. = 6.5 / Est CrCl=13
Continue ampicillin (d#7 abx) dosed for renal insufficiency.
Repeat blood cultures without growth.
Continue with supportive care.
Monitor white count, temperature curve and creatinine.
����������������������������������������������������������
Chief Complaint
-: Bacteremia and Other (Cholecystitis)
Subjective / Review of Systems
Review of Systems: No Fever, No Chills and No Abdominal Pain
Vital Signs / Physical Exam
Vital Signs
Vital Signs
Temp Pulse Resp BP Pulse Ox
98.2 F 75 19 133/103 93
09/28/24 07:27 09/28/24 04:00 09/28/24 04:00 09/28/24 04:00 09/28/24 04:00
Physical Exam
Constitutional: Comfortable, Non-toxic and Obese
Cardiovascular: Regular Rate and S1/S2; Negative S3/S4
Pulmonary: Non Labored
Gastrointestinal: Soft, Tender and Normal Bowel Sounds
Genito-Urinary: Suprapubic Tenderness
Extremities: Erythema
Wound: Other (Abdominal trocar wounds C/D/I)
Neurological: Awake and Alert
Psychological: Calm
Objective Data
Lab Data
Lab Results
09/28/24 05:45
09/28/24 05:45
PT 17.2 Sec (11.4-14.6) H 09/28/24 05:45
INR 1.37 09/28/24 05:45
Estimated Creat Clear 13 ml/min 09/28/24 05:45
Lactic Acid Cancelled 09/23/24 06:00
Total Bilirubin 1.1 mg/dl (0.2-1.3) 09/28/24 05:45
AST 264 U/L (17-59) H 09/28/24 05:45
ALT 293 U/L (0-50) H 09/28/24 05:45
Alkaline Phosphatase 668 U/L (38-126) H 09/28/24 05:45
Most recent labs reviewed.
Micro Results:
09/23/24 11:03 Blood Culture - Preliminary
Blood/Venous No Growth in 4 days- Final report to follow
09/23/24 09:36 Blood Culture - Preliminary
Blood/Venous No Growth in 4 days- Final report to follow
09/22/24 15:11 Blood Culture - Final
Blood/Venous Enterococcus faecalis
Gram Stain - Final
09/22/24 15:11 Blood Culture - Preliminary
Blood/Venous Enterococcus faecalis
Gram Stain - Preliminary
Blood Culture Preliminary 09/22/2024
Enterococcus faecalis
Organism 1 Enterococcus faecalis
1. Enterococcus faecalis
M.I.C. RX
--------- ---
Ampicillin <=2 S
Gentamicin Synergy Screen <=500 S
Vancomycin 1 S
Imaging:
09/22/24 Abdominal ultrasound: Numerous small gallstones. Gallbladder wall thickness is top normal. No cholecystic fluid. Negative sonographic Hoyos sign.
09/22/2024 CT abdomen/pelvis: Gallbladder appears borderline distended with cholelithiasis and surrounding stranding concerning for acute cholecystitis. Urinary bladder is mildly distended. There is mild prostamegaly with intravesicular protrusion.
Please see full dictation for additional detail.
[2024-09-28] MEDS: ZYLOPRIM PO (09:39)
--- NOTE | 2024-09-28 10:27 | W.PN.NEPH.PH ---
Today's Communication / Plan
-
HD
Assessment/Plan
-
78 yo man with hx atrial fibrillation on Eliquis, tachy-steve syndrome s/p PPM, HFpEF, CAD s/p PCI 11/14, essential HTN, HLD, CKD, DM, prostate CA s/p TURP presents to the ER with abdominal pain. Subsequently found to have cholecystitis status
post laparoscopic cholecystectomy.
Renal consult for acute on chronic kidney disease with baseline creatinine of 1.7-1.9 and creatinine on consultation 4.3 oligoanuric on pressor
Follows in our office for chronic kidney disease with Dr. Lopes
Impression.
CKD 3b baseline creatinine 1.7
DEQUAN
Sepsis status post cholecystectomy
Enterococcal Septic shock
Atrial fibrillation
Type 2 diabetes
Plan.
will need to initiate HD
long d/w pt and . potential for recovery, access discussed
tunnelled HD CVC today
-
-
Date of Service: September 28, 2024
CC / HPI / ROS
-
Chief Complaint:
Bacteremia cholecystitis
History of Present Illness:
DEQUAN/Cr worse to 6.5
acidosis persists 16
BP stable low
nonoliguric
Review of Systems:
No chest pain or shortness of breath
Labs
-
Labs:
WBC 9.0 10^3/uL (4.8-10.8) 09/28/24 05:45
RBC 3.90 10^6/uL (4.70-6.10) L 09/28/24 05:45
Hgb 11.0 g/dL (13.0-18.0) L 09/28/24 05:45
Hct 33.6 % (39.0-52.0) L 09/28/24 05:45
Plt Count 166 10^3/uL (130-400) 09/28/24 05:45
Sodium 138 mmol/L (135-145) 09/28/24 05:45
Potassium 4.9 mmol/L (3.5-5.1) 09/28/24 05:45
Chloride 106 mmol/L (98-107) 09/28/24 05:45
Carbon Dioxide 16 mmol/L (22-30) L 09/28/24 05:45
BUN 99 mg/dl (9-20) H 09/28/24 05:45
Creatinine 6.5 mg/dL (0.7-1.3) H* 09/28/24 05:45
eGFR 8.05 09/28/24 05:45
Glucose 147 mg/dl (70-99) H 09/28/24 05:45
Calcium 7.7 mg/dl (8.4-10.2) L 09/28/24 05:45
Phosphorus 6.2 mg/dl (2.5-4.5) H 09/27/24 04:19
Albumin 2.5 g/dl (3.5-5.0) L 09/28/24 05:45
Physical Exam
-
Vital Signs:
Vital Signs
Temp Pulse Resp BP Pulse Ox
98.2 F 75 19 133/103 93
09/28/24 07:27 09/28/24 04:00 09/28/24 04:00 09/28/24 04:00 09/28/24 04:00
Cardiovascular:: Regular rate and rhythm
Respiratory:: Bilateral: Coarse
Lung Excursion:: Normal
Abdomen:: Nontender and Soft
Bowel Sounds:: Normal
Extremity Edema:: +1: Bilateral: (hands)
--- NOTE | 2024-09-28 10:49 | PTCARENOTE ---
S patient verbalized to nurse assistant softball coach and nurse Cookie that patient is suicidal as they were cleaning up patient. This RN assessed patient and asked patient to step out of patients room. Patient was asked if he felt like hurting himself
or any one else. Patient said NO. He said he's not suicidal nor is he depressed. He's upset about being in the hospital and his annoys him.
B Patient admitted with acute cholecystitis
A see online database
R RN informed hospitalist Dr. Smith. No further orders at this time.
--- NOTE | 2024-09-28 10:57 | PTCARENOTE ---
Patient received this am AAOx3 very pleasant. Patient denies any discomfort at this time. Patient VS within normal limits. Patient assisted into the chair for breakfast with tech. As we moved patient, blood was trickling out of patients rectum onto
floor. Patient was cleaned up and assisted into the chair. Patient stool was tested and it was Heme +. RN informed hospitalist Dr. Smith. Hgb this am 11.0. No new orders given at this time.
[2024-09-28 11:53] LABS: Glucose - Point of Care 127 mg/dl (70-99)
[2024-09-28] MEDS: NOVOLOG FLEXPEN SC ×2 (11:59→16:01)
--- NOTE | 2024-09-28 14:42 | W.PN.HOSP.TC ---
Today's Communication/Plan
-
Monitor vital signs
see plan
Tunneled HD catheter today
Initiate HD per nephrology
monitor hgb
Discussed with spouse at bedside
Assessment / Plan
Assessment / Plan
Gen-AAOx3, NAD
HEENT-NC, AT, anicteric, clear oral mm
Neck-supple
CV-reg, no M, +S1/S2
Lungs-clear B/L
Abd-soft, less abdominal tenderness but very distended
Ext-no edema
Musculoskeletal-no cyanosis, clubbing
Skin-warm and dry
Neuro-grossly non-focal
Psych-calm, cooperative
Postoperative ileus - Denies nausea or vomiting. Overall abdominal pain has improved. Minimize opiates. Out of bed to chair and ambulate with PT. Dulcolax suppository. Discussed with nursing. Surgical service has advanced diet to diabetic.
now with BM; mild heme + stool. hx of hemorrhoids. hgb stable. monitor
Enterococcal Septic shock due to Calculus cholecystitis - repeat blood cultures negative. Antibiotics per ID. Sepsis improving. WBC count coming down. Afebrile.
Required vasopressors on 09/24, now off. Lactic acidosis due to sepsis, present on admission. Now improved.
Acute calculus cholecystitis - choledocholithiasis ruled out with intraoperative cholangiogram. Underwent laparoscopic cholecystectomy September 24, Gallbladder was noted to be severely inflamed and thickened with patchy necrosis.
Suspect right shoulder pain is referred due to gallbladder disease. Interesting that it started postoperatively.
DEQUAN on CKD 3b -etiology of DEQUAN possibly due to contrast-induced nephropathy, hypotension with ischemic ATN. Sepsis can also contribute. Nephrology following. Renal function unfortunately worsening. Monitor volume status closely
Nephrology following; renal function worsening. Patient agreeable to initiate HD. Tunneled HD catheter 09/28
Losartan on hold.
Acute hepatitis - likely due to sepsis, shock, ischemia. Transaminases coming down.
DM2 with hyperglycemia -hemoglobin A1c 8.9%, 09/06/2024.
At home he is on insulin degludec 44 units at bedtime, Jardiance 25 mg daily, tirzepatide 10 mg subcutaneously every Friday.
Increase Lantus to 25 units at bedtime. Add NovoLog 5 units with meals.
Chronic heart failure preserved EF -stable.
CAD -stable.
Paroxysmal atrial fibrillation -last dose of Eliquis was 4/30 AM. Resume Eliquis possibly tomorrow if continues to improve as may need HD catheter
Hyperphosphatemia
Monitor
Essential hypertension -hold antihypertensives for low blood pressure.
Hyperlipidemia - Hold rosuvastatin for hepatitis.
History of prostate cancer -s/p TURP.
History of tachybradycardia syndrome -s/p pacemaker.
Diabetic peripheral neuropathy
BPH - With history of chronic bacterial prostatitis. Appreciate urology input. Unlikely to have prostatic abscess currently.
Gout - hold allopurinol.
Obesity due to excess calories
DNR
Dispo -SNF when medically stable.
I spent a total of 53 minutes with the patient or on the floor. More than 50% of this time involved counseling and coordination of care.
Anticipated Discharge: > 48 hours
Subjective/Interval History
-
Date of Service: September 28, 2024
denies nausea
Objective Data
-
Labs:
Laboratory Results
09/28/24
05:45
WBC 9.0
Hgb 11.0 L
Hct 33.6 L
Plt Count 166
PT 17.2 H
INR 1.37
Sodium 138
Potassium 4.9
Chloride 106
Carbon Dioxide 16 L
BUN 99 H
Creatinine 6.5 H*
Glucose 147 H
Calcium 7.7 L
Total Bilirubin 1.1
AST 264 H
ALT 293 H
Alkaline Phosphatase 668 H
Vital Signs:
Vital Signs
Temp Pulse Resp BP Pulse Ox
97.2 F 75 19 133/103 93
09/28/24 11:43 09/28/24 04:00 09/28/24 04:00 09/28/24 04:00 09/28/24 04:00
I&O
09/27/24 09/28/24 09/29/24
06:59 06:59 06:59
Intake Total 1260 / 1260 1200 / 1200
Output Total 150 / 150 575 / 575
Balance 1110 / 1110 625 / 625
[2024-09-28 15:42] LABS: Glucose - Point of Care 92 mg/dl (70-99)
[2024-09-28] MEDS: LANTUS 0.25 UNITS SC (17:54)
[2024-09-28 19:04] LABS: Glucose - Point of Care 106 mg/dl (70-99)
[2024-09-28 21:48] LABS: Glucose - Point of Care 173 mg/dl (70-99)
[2024-09-29] VITALS (60 sets, daily range): BP systolic 61–127; BP diastolic 25–99; PULSE 74–91; O2SAT 94; BMI 35.2
--- NOTE | 2024-09-29 00:21 | PTCARENOTE ---
Addendum entered by Gisela Arriola RN 09/29/24 00:55:
Pt appearing to be more withdrawn/quiet when at bed side. Pt very pleasant having short conversations when had left for evening.
Original Note:
Pt AAOx3. BP's on softer side, MAP maintaining within appropriate parameter. Pt placed CPAP brought from home. Pt has no complaints at this time.
[2024-09-29] MEDS: HEPARIN 5000 UNITS SC ×4 (00:37→23:58)
[2024-09-29] MEDS: ProAmatine 5 MG PO ×3 (02:06→11:42)
[2024-09-29] MEDS: ProAmatine 2.5 MG PO (04:59)
[2024-09-29 05:24] LABS: % Basophils 0.2 % (0-2); % Immature Granulocytes 1.1 % (0-0.5); % Lymphocytes 10.8 % (20.5-51.1); % Monocytes 5.3 % (1.7-9.3); % Neutrophils 81.6 % (42.2-75.2); Absolute Eosinophils 0.1 10^3/uL (0-0.7); Absolute Immature Granulocytes 0.1 10^3/uL (0-0.05); Absolute Monocytes 0.5 10^3/uL (0.1-0.6); Absolute Neutrophils 7.7 10^3/uL (1.4-6.5); Hematocrit 30.5 % (39.0-52.0); Hemoglobin 10.2 g/dL (13.0-18.0); Mean Corp Hgb Conc. 33.4 g/dL (33.0-37.0); Mean Corpuscular Hgb 28.1 pg (27.0-31.0); Mean Platelet Volume 10.6 fL (7.4-10.4); Nucleated Red Blood Cells % 0 % (-); Platelet Count 149 10^3/uL (130-400); Red Blood Cell Count 3.63 10^6/uL (4.70-6.10); White Blood Cell Count 9.5 10^3/uL (4.8-10.8)
[2024-09-29 05:58] LABS: ALT (SGPT) 225 U/L (0-50); AST (SGOT) 146 U/L (17-59); Albumin 2.3 g/dl (3.5-5.0); Alkaline Phosphatase 636 U/L (38-126); Blood Urea Nitrogen 108 mg/dl (9-20); Calcium 7.6 mg/dl (8.4-10.2); Carbon Dioxide 14 mmol/L (22-30); Chloride 108 mmol/L (98-107); Estimated Creatinine Clearance 11 ml/min; Glucose 124 mg/dl (70-99); Potassium 4.4 mmol/L (3.5-5.1); Sodium 136 mmol/L (135-145); Total Bilirubin 1.1 mg/dl (0.2-1.3); Total Protein 4.9 g/dl (6.3-8.2); eGFR 7.24
--- NOTE | 2024-09-29 06:25 | PTCARENOTE ---
Pt BP's remaining soft 80's/50's PRN midodrine given. Pt BP's remaining soft, night AUTOMOTIVE DESIGNER made aware, one time midodrine ordered. When crossing over the vitals wrong click and repeat vitals crossed over. After both doses of midodrine bp 94/59 map 69.
[2024-09-29] MEDS: NOVOLOG FLEXPEN-MODERATE RESISTANCE SC ×3 (07:48→17:25)
[2024-09-29 07:51] LABS: Glucose - Point of Care 131 mg/dl (70-99)
--- NOTE | 2024-09-29 08:42 | W.PN.ID1 ---
Date of Service
Date of Service: September 29, 2024
Today's Communication
Continue antibiotics.
Assessment / Plan
Leukocytosis
Bacteremia (Enterococcus faecalis)
Acute cholecystitis +/- ascending cholangitis
- s/p cholecystectomy (09/24/2024)
DEQUAN on CKD
Elevated bilirubin
Transaminitis
A-fib
CAD
Hx squamous cell CA of the face
CHF
HTN
HLD
DM
Renal insufficiency
Gout
Recommendations:
Leukocytosis normalized.
Creatinine continues to rise.; Cr. = 7.1 / Est CrCl=11
Continue ampicillin (d#8 abx) dosed for renal insufficiency. Would complete a 14-day course of antibiotics. (Through 10/06)
Repeat blood cultures without growth.
Continue with supportive care. Patient for initiation of hemodialysis today.
Monitor white count, temperature curve and creatinine.
����������������������������������������������������������
Chief Complaint
-: Bacteremia and Other (Cholecystitis)
Subjective / Review of Systems
Review of Systems: No Fever and No Chills
Vital Signs / Physical Exam
Vital Signs
Vital Signs
Temp Pulse Resp BP Pulse Ox
97.2 F 87 23 94/59 93
09/29/24 01:53 09/29/24 06:21 09/29/24 06:21 09/29/24 06:21 09/29/24 06:21
Physical Exam
Constitutional: Comfortable, Non-toxic and Obese
Cardiovascular: Regular Rate and S1/S2; Negative S3/S4
Pulmonary: Non Labored
Gastrointestinal: Soft and Normal Bowel Sounds
Wound: Other (Abdominal trocar wounds C/D/I)
Neurological: Other (Resting comfortably)
Psychological: Calm
Objective Data
Lab Data
Lab Results
09/29/24 04:56
09/29/24 04:56
PT 17.2 Sec (11.4-14.6) H 09/28/24 05:45
INR 1.37 09/28/24 05:45
Estimated Creat Clear 11 ml/min 09/29/24 04:56
Lactic Acid Cancelled 09/23/24 06:00
Total Bilirubin 1.1 mg/dl (0.2-1.3) 09/29/24 04:56
AST 146 U/L (17-59) H 09/29/24 04:56
ALT 225 U/L (0-50) H 09/29/24 04:56
Alkaline Phosphatase 636 U/L (38-126) H 09/29/24 04:56
Most recent labs reviewed.
Micro Results:
09/23/24 11:03 Blood Culture - Final
Blood/Venous No Growth - Final Report
09/23/24 09:36 Blood Culture - Final
Blood/Venous No Growth - Final Report
09/22/24 15:11 Blood Culture - Final
Blood/Venous Enterococcus faecalis
Gram Stain - Final
09/22/24 15:11 Blood Culture - Preliminary
Blood/Venous Enterococcus faecalis
Gram Stain - Preliminary
Blood Culture Preliminary 09/22/2024
Enterococcus faecalis
Organism 1 Enterococcus faecalis
1. Enterococcus faecalis
M.I.C. RX
--------- ---
Ampicillin <=2 S
Gentamicin Synergy Screen <=500 S
Vancomycin 1 S
Imaging:
09/22/24 Abdominal ultrasound: Numerous small gallstones. Gallbladder wall thickness is top normal. No cholecystic fluid. Negative sonographic Hoyos sign.
09/22/2024 CT abdomen/pelvis: Gallbladder appears borderline distended with cholelithiasis and surrounding stranding concerning for acute cholecystitis. Urinary bladder is mildly distended. There is mild prostamegaly with intravesicular protrusion.
Please see full dictation for additional detail.
[2024-09-29] MEDS: NOVOLOG FLEXPEN 5 UNITS SC ×3 (09:28→17:22)
[2024-09-29] MEDS: ASPIR LOW (ENTERIC COATED) 81 MG PO (09:29)
[2024-09-29] MEDS: PROTONIX 40 MG PO (09:29)
[2024-09-29] MEDS: AMPICILLIN 108 MG IV ×2 (09:29→20:05)
[2024-09-29] MEDS: FLOMAX 0.4 MG PO (09:30)
[2024-09-29] MEDS: LEXAPRO 10 MG PO (09:30)
[2024-09-29] MEDS: PROSCAR 5 MG PO (09:30)
[2024-09-29] MEDS: DESENEX/MITRAZOL/ZEASORB 1 APPLIC TOPICAL ×2 (09:36→20:07)
--- NOTE | 2024-09-29 09:42 | W.PN.NEPH.PH ---
Today's Communication / Plan
-
Hemodialysis today first treatment and tomorrow
Assessment/Plan
-
78 yo man with hx atrial fibrillation on Eliquis, tachy-steve syndrome s/p PPM, HFpEF, CAD s/p PCI 11/14, essential HTN, HLD, CKD, DM, prostate CA s/p TURP presents to the ER with abdominal pain. Subsequently found to have cholecystitis status
post laparoscopic cholecystectomy.
Renal consult for acute on chronic kidney disease with baseline creatinine of 1.7-1.9 and creatinine on consultation 4.3 oligoanuric on pressor
Follows in our office for chronic kidney disease with Dr. Lopes
Impression.
CKD 3b baseline creatinine 1.7
DEQUAN secondary to hemodynamic hypotension postoperatively and intraoperatively and ATN possible component of periinfectious
Sepsis status post cholecystectomy
Enterococcal Septic shock
Atrial fibrillation
Type 2 diabetes
Plan.
First dialysis 09/29
I discussed with his at the bedside
No signs of recovery
Tunneled IJ dialysis catheter placed 09/28

33 minutes critical care time
-
-
Date of Service: September 29, 2024
CC / HPI / ROS
-
Chief Complaint:
Bacteremia cholecystitis
History of Present Illness:
DEQUAN/Cr worse to 6.5
acidosis persists 16
BP stable low
nonoliguric
Review of Systems:
No chest pain or shortness of breath
Oliguric
Labs
-
Labs:
WBC 9.5 10^3/uL (4.8-10.8) 09/29/24 04:56
RBC 3.63 10^6/uL (4.70-6.10) L 09/29/24 04:56
Hgb 10.2 g/dL (13.0-18.0) L 09/29/24 04:56
Hct 30.5 % (39.0-52.0) L 09/29/24 04:56
Plt Count 149 10^3/uL (130-400) 09/29/24 04:56
Sodium 136 mmol/L (135-145) 09/29/24 04:56
Potassium 4.4 mmol/L (3.5-5.1) 09/29/24 04:56
Chloride 108 mmol/L (98-107) H 09/29/24 04:56
Carbon Dioxide 14 mmol/L (22-30) L* 09/29/24 04:56
BUN 108 mg/dl (9-20) H* 09/29/24 04:56
Creatinine 7.1 mg/dL (0.7-1.3) H* 09/29/24 04:56
eGFR 7.24 09/29/24 04:56
Glucose 124 mg/dl (70-99) H 09/29/24 04:56
Calcium 7.6 mg/dl (8.4-10.2) L 09/29/24 04:56
Phosphorus 6.2 mg/dl (2.5-4.5) H 09/27/24 04:19
Albumin 2.3 g/dl (3.5-5.0) L 09/29/24 04:56
Physical Exam
-
Vital Signs:
Vital Signs
Temp Pulse Resp BP Pulse Ox
97.2 F 87 23 94/59 93
09/29/24 01:53 09/29/24 06:21 09/29/24 06:21 09/29/24 06:21 09/29/24 06:21
Cardiovascular:: Regular rate and rhythm
Respiratory:: Bilateral: Coarse
Lung Excursion:: Normal
Abdomen:: Nontender and Soft
Bowel Sounds:: Normal
Extremity Edema:: +1: Bilateral: (hands)
Gray Catheter: No
--- NOTE | 2024-09-29 11:18 | PTCARENOTE ---
Pt working with PT and pressures dropped to 60's systolic. Pt laid flat and pressures recovered only to 70-80's. PRN Midodrine given. Dr. Smith and Dr. Navarrete notified via TT.
[2024-09-29] MEDS: LEVOPHED 250 IV (11:38)
--- NOTE | 2024-09-29 11:39 | PTCARENOTE ---
Pt remains hypotensive. Dr Smith notified, order received for Levo; initiated per order. See MAR.
[2024-09-29 12:02] LABS: Glucose - Point of Care 134 mg/dl (70-99)
[2024-09-29] MEDS: MANNITOL 25% 12.5 GRAMS IV ×2 (12:22→13:22)
--- NOTE | 2024-09-29 13:21 | W.PN.HOSP.TC ---
Today's Communication/Plan
-
Monitor vital signs see plan
HD today since renal function not improving
Hypotensive this morning, started on Levophed. Wean as tolerated
Continue midodrine as needed
Patient is severely ill, spouse aware
Discussed with spouse at bedside
Assessment / Plan
Assessment / Plan
Gen-AAOx3, NAD
HEENT-NC, AT, anicteric, clear oral mm
Neck-supple
CV-reg, no M, +S1/S2
Lungs-clear B/L
Abd-soft, less abdominal tenderness
Ext-no edema
Musculoskeletal-no cyanosis, clubbing
Skin-warm and dry
Neuro-grossly non-focal
Psych-calm, cooperative
Postoperative ileus - Denies nausea or vomiting. Overall abdominal pain has improved. Minimize opiates. Out of bed to chair and ambulate with PT. Dulcolax suppository. Discussed with nursing. Surgical service has advanced diet to diabetic.
now with BM; mild heme + stool. hx of hemorrhoids. hgb stable. monitor
diarrhea
check cdiff,noro
stool studies
been in hospital and on abx
Enterococcal Septic shock due to Calculus cholecystitis - repeat blood cultures negative. Antibiotics per ID. WBC count coming down. Afebrile.
Required vasopressors on 09/24, then were off. Lactic acidosis due to sepsis, present on admission. Now improved.
started pressors again 09/29, levophed for hypotension. cannot give more fluids since now started on HD
Acute calculus cholecystitis - choledocholithiasis ruled out with intraoperative cholangiogram. Underwent laparoscopic cholecystectomy September 24, Gallbladder was noted to be severely inflamed and thickened with patchy necrosis.
Suspect right shoulder pain is referred due to gallbladder disease. Interesting that it started postoperatively.
DEQUAN on CKD 3b -etiology of DEQUAN possibly due to contrast-induced nephropathy, hypotension with ischemic ATN. Sepsis can also contribute. Nephrology following. Renal function unfortunately worsening. Monitor volume status closely
Nephrology following; renal function worsening. Patient agreeable to initiate HD. Tunneled HD catheter 09/28. HD initiated 09/29
Losartan on hold.
Acute hepatitis - likely due to sepsis, shock, ischemia. Transaminases coming down.
DM2 with hyperglycemia -hemoglobin A1c 8.9%, 09/06/2024.
At home he is on insulin degludec 44 units at bedtime, Jardiance 25 mg daily, tirzepatide 10 mg subcutaneously every Friday.
Increase Lantus to 25 units at bedtime. Add NovoLog 5 units with meals.
Chronic heart failure preserved EF -stable.
CAD -stable.
Paroxysmal atrial fibrillation -last dose of Eliquis was 09/22 AM. Resume Eliquis possibly tomorrow if continues to improve as may need HD catheter
Hyperphosphatemia
Monitor
Essential hypertension -hold antihypertensives for low blood pressure.
Hyperlipidemia - Hold rosuvastatin for hepatitis.
History of prostate cancer -s/p TURP.
History of tachybradycardia syndrome -s/p pacemaker.
Diabetic peripheral neuropathy
BPH - With history of chronic bacterial prostatitis. Appreciate urology input. Unlikely to have prostatic abscess currently.
Gout - hold allopurinol.
Obesity due to excess calories
DNR
Dispo -SNF when medically stable.
I spent a total of 52 minutes with the patient or on the floor. More than 50% of this time involved counseling and coordination of care.
Anticipated Discharge: > 48 hours
Subjective/Interval History
-
Date of Service: September 29, 2024
denies pain
Objective Data
-
Labs:
Laboratory Results
09/29/24
04:56
WBC 9.5
Hgb 10.2 L
Hct 30.5 L
Plt Count 149
Sodium 136
Potassium 4.4
Chloride 108 H
Carbon Dioxide 14 L*
BUN 108 H*
Creatinine 7.1 H*
Glucose 124 H
Calcium 7.6 L
Total Bilirubin 1.1
AST 146 H
ALT 225 H
Alkaline Phosphatase 636 H
Vital Signs:
Vital Signs
Temp Pulse Resp BP Pulse Ox
97.5 F 84 24 120/93 95
09/29/24 07:35 09/29/24 12:30 09/29/24 12:30 09/29/24 12:30 09/29/24 12:30
I&O
09/28/24 09/29/24 09/30/24
06:59 06:59 06:59
Intake Total 1200 / 1200 400 / 400
Output Total 575 / 575 100 / 100
Balance 625 / 625 300 / 300
--- NOTE | 2024-09-29 13:32 | W.PN.NEPH.HD ---
Assessment
-
Tolerating first treatment on low-dose pressor support
Dialysis again tomorrow
Progress Note - Hemodialysis
-
Date of Service: September 29, 2024
Duration: 2 hours
Potassium Bath: 3
Calcium Bath: 2.5
Opti-Dialyzer: 160
Blood Flow: 250
Dialysate Flow: 600
[2024-09-29] MEDS: HEPARIN 4300 UNITS INTRACATH (14:46)
--- NOTE | 2024-09-29 16:07 | PTCARENOTE ---
Pt tolerated first HD well. Levo weaned to 1mcg. Pt's at bedside, both updated on plan of care. Bed alarm in place for safety.
[2024-09-29] MEDS: LANTUS 0.25 UNITS SC (17:22)
--- NOTE | 2024-09-29 17:26 | PTCARENOTE ---
Pt's SBP less than 90, levo increased- see intervention.
[2024-09-29 17:32] LABS: Glucose - Point of Care 134 mg/dl (70-99)
[2024-09-29 19:34] LABS: Glucose - Point of Care 176 mg/dl (70-99)
[2024-09-29 21:26] LABS: Glucose - Point of Care 211 mg/dl (70-99)
[2024-09-30] VITALS (39 sets, daily range): BP systolic 92–162; BP diastolic 50–115; BMI 35.5
[2024-09-30 04:11] LABS: % Basophils 0.3 % (0-2); % Eosinophils 1.4 % (0-6); % Lymphocytes 11.3 % (20.5-51.1); % Monocytes 5.5 % (1.7-9.3); % Neutrophils 79.5 % (42.2-75.2); Absolute Eosinophils 0.1 10^3/uL (0-0.7); Absolute Immature Granulocytes 0.2 10^3/uL (0-0.05); Absolute Lymphocytes 1.1 10^3/uL (1.2-3.4); Absolute Monocytes 0.6 10^3/uL (0.1-0.6); Hematocrit 29.5 % (39.0-52.0); Hemoglobin 9.9 g/dL (13.0-18.0); Mean Corp Hgb Conc. 33.6 g/dL (33.0-37.0); Mean Corpuscular Hgb 28.2 pg (27.0-31.0); Mean Platelet Volume 10.6 fL (7.4-10.4); Nucleated Red Blood Cells % 0 % (-); Platelet Count 163 10^3/uL (130-400); Red Blood Cell Count 3.51 10^6/uL (4.70-6.10); Red Cell Dist. Width 15.9 % (11.5-14.5); White Blood Cell Count 10.1 10^3/uL (4.8-10.8)
[2024-09-30 04:33] LABS: ALT (SGPT) 164 U/L (0-50); AST (SGOT) 79 U/L (17-59); Albumin 2.2 g/dl (3.5-5.0); Alkaline Phosphatase 628 U/L (38-126); Blood Urea Nitrogen 77 mg/dl (9-20); Calcium 7.7 mg/dl (8.4-10.2); Carbon Dioxide 23 mmol/L (22-30); Chloride 105 mmol/L (98-107); Estimated Creatinine Clearance 16 ml/min; Glucose 173 mg/dl (70-99); Potassium 3.8 mmol/L (3.5-5.1); Sodium 137 mmol/L (135-145); Total Bilirubin 0.9 mg/dl (0.2-1.3); Total Protein 4.7 g/dl (6.3-8.2); eGFR 11.03
--- NOTE | 2024-09-30 05:26 | PTCARENOTE ---
Pt appearing to have a restful night. Pt on home CPAP, reparations even unlabored. Pt had one incont bm during the night. Pt weaned off LEVO.
[2024-09-30 07:49] LABS: Glucose - Point of Care 154 mg/dl (70-99)
[2024-09-30] MEDS: PROTONIX PO (08:33)
[2024-09-30] MEDS: NOVOLOG FLEXPEN SC (10:10)
[2024-09-30] MEDS: NOVOLOG FLEXPEN-MODERATE RESISTANCE 1 UNITS SC (10:11)
[2024-09-30] MEDS: AMPICILLIN 108 MG IV ×2 (10:12→20:38)
[2024-09-30] MEDS: HEPARIN 5000 UNITS SC (10:14)
[2024-09-30] MEDS: PROSCAR 5 MG PO (10:15)
[2024-09-30] MEDS: FLOMAX 0.4 MG PO (10:15)
[2024-09-30] MEDS: PROTONIX 40 MG PO ×2 (10:15→20:38)
[2024-09-30] MEDS: ASPIR LOW (ENTERIC COATED) 81 MG PO (10:15)
[2024-09-30] MEDS: LEXAPRO 10 MG PO (10:15)
--- NOTE | 2024-09-30 10:46 | W.PN.ID1 ---
Date of Service
Date of Service: September 30, 2024
Today's Communication
Continue antibiotics.
Assessment / Plan
Leukocytosis
Bacteremia (Enterococcus faecalis)
Acute cholecystitis +/- ascending cholangitis
- s/p cholecystectomy (09/24/2024)
DEQUAN on CKD
Elevated bilirubin
Transaminitis
A-fib
CAD
Hx squamous cell CA of the face
CHF
HTN
HLD
DM
Renal insufficiency
Gout
Recommendations:
Leukocytosis normalized.
Patient now on hemodialysis.
Continue ampicillin (d#9 abx) dosed for HD. Would complete a 14-day course of antibiotics. (Through 10/06)
Repeat blood cultures without growth.
Continue with supportive care. Patient for initiation of hemodialysis today.
Monitor white count, temperature curve and creatinine.
����������������������������������������������������������
Chief Complaint
-: Bacteremia and Other (Cholecystitis)
Subjective / Review of Systems
Review of Systems: No Fever, No Chills and No Cough
Vital Signs / Physical Exam
Vital Signs
Vital Signs
Temp Pulse Resp BP Pulse Ox
98.0 F 74 16 132/73 98
09/30/24 07:35 09/30/24 05:11 09/30/24 07:35 09/30/24 05:11 09/30/24 07:35
Physical Exam
Constitutional: Comfortable, Non-toxic and Obese
Cardiovascular: Regular Rate and S1/S2; Negative S3/S4
Pulmonary: Non Labored
Gastrointestinal: Soft and Normal Bowel Sounds
Wound: Other (Abdominal trocar wounds C/D/I)
Neurological: Other (Resting comfortably)
Psychological: Calm
Lines: HD Cath (Right ACW)
Objective Data
Lab Data
Lab Results
09/30/24 03:49
09/30/24 03:49
PT 17.2 Sec (11.4-14.6) H 09/28/24 05:45
INR 1.37 09/28/24 05:45
Estimated Creat Clear 16 ml/min 09/30/24 03:49
Lactic Acid Cancelled 09/23/24 06:00
Total Bilirubin 0.9 mg/dl (0.2-1.3) 09/30/24 03:49
AST 79 U/L (17-59) H 09/30/24 03:49
ALT 164 U/L (0-50) H 09/30/24 03:49
Alkaline Phosphatase 628 U/L (38-126) H 09/30/24 03:49
Most recent labs reviewed.
Micro Results:
09/30/24 01:40 C. difficile GDH Antigen & Toxins - Final
Feces/Stool Negative for toxigenic C.difficile
- Final
Negative for Norovirus GI and GII.
09/30/24 01:40 Stool Leukocytes - Pending
Feces/Stool
09/30/24 01:40 Salmonella/Shigella Culture - Pending
Feces/Stool Campylobacter Culture - Pending
Shiga Toxin Test - Pending
09/22/24 15:11 Blood Culture - Final
Blood/Venous Enterococcus faecalis
Gram Stain - Final
09/23/24 11:03 Blood Culture - Final
Blood/Venous No Growth - Final Report
09/23/24 09:36 Blood Culture - Final
Blood/Venous No Growth - Final Report
09/22/24 15:11 Blood Culture - Final
Blood/Venous Enterococcus faecalis
Gram Stain - Final
Blood Culture Preliminary 09/22/2024
Enterococcus faecalis
Organism 1 Enterococcus faecalis
1. Enterococcus faecalis
M.I.C. RX
--------- ---
Ampicillin <=2 S
Gentamicin Synergy Screen <=500 S
Vancomycin 1 S
Imaging:
09/22/24 Abdominal ultrasound: Numerous small gallstones. Gallbladder wall thickness is top normal. No cholecystic fluid. Negative sonographic Hoyos sign.
09/22/2024 CT abdomen/pelvis: Gallbladder appears borderline distended with cholelithiasis and surrounding stranding concerning for acute cholecystitis. Urinary bladder is mildly distended. There is mild prostamegaly with intravesicular protrusion.
Please see full dictation for additional detail.
[2024-09-30] MEDS: DESENEX/MITRAZOL/ZEASORB 1 APPLIC TOPICAL ×2 (11:09→20:39)
--- NOTE | 2024-09-30 11:36 | W.PN.NEPH.HD ---
Assessment
-
Second treatment tolerated issues dialysis again tomorrow
Progress Note - Hemodialysis
-
Date of Service: September 30, 2024
Duration: 2 hours
Potassium Bath: 3
Calcium Bath: 2.5
Opti-Dialyzer: 160
Blood Flow: 250
Dialysate Flow: 600
--- NOTE | 2024-09-30 12:23 | W.PN.HOSP.TC ---
Today's Communication/Plan
-
monitor vitals
see plan
resume eliquis; discussed with nephrology
HD today
cw abx
Assessment / Plan
Assessment / Plan
Gen-AAOx3, NAD
HEENT-NC, AT, anicteric, clear oral mm
Neck-supple
CV-reg, no M, +S1/S2
Lungs-clear B/L
Abd-soft, less abdominal tenderness
Ext-no edema
Musculoskeletal-no cyanosis, clubbing
Skin-warm and dry
Neuro-grossly non-focal
Psych-calm, cooperative
Postoperative ileus - Denies nausea or vomiting. Overall abdominal pain has improved. Minimize opiates. Out of bed to chair and ambulate with PT. Dulcolax suppository. Discussed with nursing. Surgical service has advanced diet to diabetic.
now with BM; mild heme + stool. hx of hemorrhoids. hgb stable. monitor. no further issues
diarrhea
Likely secondary to antibiotics
C. difficile, noro negative
Enterococcal Septic shock due to Calculus cholecystitis - repeat blood cultures negative. Antibiotics per ID. WBC count coming down. Afebrile.
Required vasopressors on 09/24, then were off. Lactic acidosis due to sepsis, present on admission. Now improved.
started pressors again 09/29, levophed for hypotension. Now off Levophed
Acute calculus cholecystitis - choledocholithiasis ruled out with intraoperative cholangiogram. Underwent laparoscopic cholecystectomy September 24, Gallbladder was noted to be severely inflamed and thickened with patchy necrosis.
Suspect right shoulder pain is referred due to gallbladder disease. Interesting that it started postoperatively.
DEQUAN on CKD 3b -etiology of DEQUAN possibly due to contrast-induced nephropathy, hypotension with ischemic ATN. Sepsis can also contribute. Nephrology following. Renal function unfortunately worsening. Monitor volume status closely
Nephrology following; renal function worsening. Patient agreeable to initiate HD. Tunneled HD catheter 09/28. HD initiated 09/29; recieved HD 09/30 as well
Losartan on hold.
Acute hepatitis - likely due to sepsis, shock, ischemia. Transaminases coming down.
DM2 with hyperglycemia -hemoglobin A1c 8.9%, 09/06/2024.
At home he is on insulin degludec 44 units at bedtime, Jardiance 25 mg daily, tirzepatide 10 mg subcutaneously every Friday.
Increase Lantus to 25 units at bedtime. Add NovoLog 5 units with meals.
Chronic heart failure preserved EF -stable.
CAD -stable.
Paroxysmal atrial fibrillation -last dose of Eliquis was 09/22 AM. Resume Eliquis if okay with nephrology
Hyperphosphatemia
Monitor
Essential hypertension -hold antihypertensives for low blood pressure.
Hyperlipidemia - Hold rosuvastatin for hepatitis.
History of prostate cancer -s/p TURP.
History of tachybradycardia syndrome -s/p pacemaker.
Diabetic peripheral neuropathy
BPH - With history of chronic bacterial prostatitis. Appreciate urology input. Unlikely to have prostatic abscess currently.
Gout - hold allopurinol.
Obesity due to excess calories
DNR
Dispo -SNF when medically stable.
I spent a total of 52 minutes with the patient or on the floor. More than 50% of this time involved counseling and coordination of care.
Anticipated Discharge: > 48 hours
Subjective/Interval History
-
Date of Service: September 30, 2024
Feeling little better today
Objective Data
-
Labs:
Laboratory Results
09/30/24
03:49
WBC 10.1
Hgb 9.9 L
Hct 29.5 L
Plt Count 163
Sodium 137
Potassium 3.8
Chloride 105
Carbon Dioxide 23
BUN 77 H
Creatinine 5.0 H*
Glucose 173 H
Calcium 7.7 L
Total Bilirubin 0.9
AST 79 H
ALT 164 H
Alkaline Phosphatase 628 H
Vital Signs:
Vital Signs
Temp Pulse Resp BP Pulse Ox
98.0 F 74 16 132/73 95
09/30/24 07:35 09/30/24 05:11 09/30/24 07:35 09/30/24 05:11 09/30/24 08:11
I&O
09/29/24 09/30/24 10/01/24
06:59 06:59 06:59
Intake Total 400 / 400 400 / 400
Output Total 100 / 100 175 / 175
Balance 300 / 300 225 / 225
[2024-09-30] MEDS: NOVOLOG FLEXPEN-MODERATE RESISTANCE SC ×2 (12:50→18:22)
[2024-09-30] MEDS: NOVOLOG FLEXPEN 5 UNITS SC ×2 (12:57→18:23)
[2024-09-30 12:59] LABS: Glucose - Point of Care 108 mg/dl (70-99)
--- NOTE | 2024-09-30 14:00 | PTCARENOTE ---
Pt's assessment as documented. Aox3. NSR on tele monitor. Tolerated HD well. VSS. Head to toe hygiene completed. at bedside. Ringing appropriately. Call parker within reach.
--- NOTE | 2024-09-30 14:32 | CM ---
Addendum entered by Rosana Espinal RN 09/30/24 17:13:
says outpt HD schedule preference is MWF between 6a-4p in case [facility] transport is needed.
Addendum entered by Rosana Espinal RN 09/30/24 17:09:
HD Flowsheets and Adm checklist faxed to [facility].
HD Flowsheets faxed to [facility].
Met with patient and ; saying she contacted their [facility] Nurse and they may want retirement care after rehab. tearful stating she has been assisting patient at home for 4 yrs, and unsure she can continue, however wants the best
for him. Patient says he feels he can improve in his mobility and indicating he is hoping to return home.
Plan follow up with [facility] for acceptance. and [facility] for Outpt HD clearance.
Addendum entered by Rosana Espinal RN 09/30/24 14:52:
Plan follow up with [facility] for acceptance, and [facility] for Outpt HD clearance.
Original Note:
Patient with Dx Acute calculus cholecystitis who is s/p laparoscopic yg., DEQUAN. New HD since 09/29 via tunneled catheter. Room air. Using home CPAP. Enhanced Precautions. Receiving IV Abx, weaned off Levophed. Per nurse; A/O x3. PT/OT ;
requires assist of 2, recommend skilled rehab.
Messages with Dr Jimenez; will need outpt HD, Dx: DEQUAN. They can follow patient if he chooses [facility].
Spoke with ; reviewed local SNFs with in-house HD and she chooses [facility]. Discussed [facility] vs [facility] and she chooses [facility] so patient can have the same nephrology group.
Spoke with Homer Carter [facility]; she will review the referral and let CM know by tomorrow if accepted. They have 1 male SNF bed and 1 HD chair available. Patients cannot start HD on Sat so first day he could be accepted will be Mon 10/04.
They need flowsheets faxed and CXR.
Spoke with [facility]; initiated outpatient HD request for [facility]. Will need schedule preference. They will fax Admission Checklist.
Plan follow up with [facility] for acceptance. and [facility] for Outpt HD clearance.
[2024-09-30 17:35] LABS: Glucose - Point of Care 146 mg/dl (70-99)
[2024-09-30] MEDS: LANTUS 0.25 UNITS SC (18:23)
[2024-09-30] MEDS: ELIQUIS 2.5 MG PO (20:38)
[2024-10-01] VITALS (43 sets, daily range): BP systolic 101–163; BP diastolic 50–133; BMI 35.2
--- NOTE | 2024-10-01 05:28 | PTCARENOTE ---
Caring for patient overnight. aaox3 but confused & forgetful. NSR BBB >QT. Remains on RA, uses home cpap HS & during naps. Oliguric, urinal & incontinent. Continues to have loose stools, remaining stool cultures still pending. ivabx. BA on. denies
pain. RHD cath. HD scheduled for 0700. VSS. Will monitor.
[2024-10-01 06:21] LABS: Glucose - Point of Care 178 mg/dl (70-99)
[2024-10-01 07:42] LABS: Glucose - Point of Care 162 mg/dl (70-99)
[2024-10-01] MEDS: NOVOLOG FLEXPEN SC (07:47)
[2024-10-01 08:27] LABS: % Basophils 0.4 % (0-2); % Eosinophils 1.7 % (0-6); % Immature Granulocytes 3.7 % (0-0.5); % Lymphocytes 14.5 % (20.5-51.1); % Monocytes 6.4 % (1.7-9.3); % Neutrophils 73.3 % (42.2-75.2); Absolute Eosinophils 0.2 10^3/uL (0-0.7); Absolute Immature Granulocytes 0.4 10^3/uL (0-0.05); Absolute Lymphocytes 1.5 10^3/uL (1.2-3.4); Absolute Monocytes 0.7 10^3/uL (0.1-0.6); Absolute Neutrophils 7.7 10^3/uL (1.4-6.5); Hemoglobin 9.3 g/dL (13.0-18.0); Mean Corp Hgb Conc. 33.2 g/dL (33.0-37.0); Mean Corpuscular Hgb 27.8 pg (27.0-31.0); Mean Corpuscular Volume 83.6 fL (80.0-94.0); Nucleated Red Blood Cells % 0 % (-); Platelet Count 190 10^3/uL (130-400); Red Blood Cell Count 3.35 10^6/uL (4.70-6.10); Red Cell Dist. Width 15.9 % (11.5-14.5); White Blood Cell Count 10.5 10^3/uL (4.8-10.8)
[2024-10-01] MEDS: NOVOLOG FLEXPEN-MODERATE RESISTANCE 1 UNITS SC (08:48)
[2024-10-01] MEDS: MANNITOL 25% 12.5 GRAMS IV ×2 (09:00→10:00)
[2024-10-01 09:37] LABS: ALT (SGPT) 124 U/L (0-50); AST (SGOT) 55 U/L (17-59); Albumin 2.2 g/dl (3.5-5.0); Alkaline Phosphatase 629 U/L (38-126); Blood Urea Nitrogen 60 mg/dl (9-20); Calcium 7.8 mg/dl (8.4-10.2); Carbon Dioxide 23 mmol/L (22-30); Chloride 104 mmol/L (98-107); Estimated Creatinine Clearance 19 ml/min; Glucose 157 mg/dl (70-99); Potassium 3.5 mmol/L (3.5-5.1); Sodium 138 mmol/L (135-145); Total Bilirubin 0.9 mg/dl (0.2-1.3); Total Protein 4.7 g/dl (6.3-8.2)
--- NOTE | 2024-10-01 09:41 | W.PN.ID1 ---
Date of Service
Date of Service: October 01, 2024
Today's Communication
Continue antibiotics. See below�
Assessment / Plan
Leukocytosis
Bacteremia (Enterococcus faecalis) (09/22)
- Rpt bc's (09/23/24) negative
Acute cholecystitis +/- ascending cholangitis
- s/p cholecystectomy (09/24/2024)
DEQUAN on CKD
Elevated bilirubin
Transaminitis
A-fib
CAD
Hx squamous cell CA of the face
CHF
HTN
HLD
DM
Renal insufficiency
Gout
Recommendations:
Leukocytosis normalized.
Patient now on hemodialysis.
Continue ampicillin (d#10 abx) dosed for HD. Would complete a 14-day course of antibiotics. (Through 10/06)
Repeat blood cultures without growth.
Continue with supportive care.
Monitor white count, temperature curve and creatinine.
����������������������������������������������������������
Chief Complaint
-: Bacteremia and Other (Cholecystitis)
Subjective / Review of Systems
Review of Systems: No Fever, No Chills and No Cough
Vital Signs / Physical Exam
Vital Signs
Vital Signs
Temp Pulse Resp BP Pulse Ox
98.2 F 73 22 130/102 94
10/01/24 08:50 10/01/24 06:00 10/01/24 06:00 10/01/24 06:00 10/01/24 06:00
Physical Exam
Constitutional: Comfortable, Non-toxic and Obese
Cardiovascular: Regular Rate and S1/S2; Negative S3/S4
Pulmonary: Non Labored
Gastrointestinal: Soft and Normal Bowel Sounds
Neurological: Awake and Alert
Psychological: Calm
Lines: HD Cath (Right ACW)
Objective Data
Lab Data
Lab Results
10/01/24 07:58
10/01/24 07:58
PT 17.2 Sec (11.4-14.6) H 09/28/24 05:45
INR 1.37 09/28/24 05:45
Estimated Creat Clear 19 ml/min 10/01/24 07:58
Lactic Acid Cancelled 09/23/24 06:00
Total Bilirubin 0.9 mg/dl (0.2-1.3) 10/01/24 07:58
AST 55 U/L (17-59) 10/01/24 07:58
ALT 124 U/L (0-50) H 10/01/24 07:58
Alkaline Phosphatase 629 U/L (38-126) H 10/01/24 07:58
Most recent labs reviewed.
Micro Results:
09/30/24 01:40 Stool Leukocytes - Final
Feces/Stool
09/30/24 01:40 C. difficile GDH Antigen & Toxins - Final
Feces/Stool Negative for toxigenic C.difficile
- Final
Negative for Norovirus GI and GII.
09/30/24 01:40 Salmonella/Shigella Culture - Pending
Feces/Stool Campylobacter Culture - Pending
Shiga Toxin Test - Pending
09/22/24 15:11 Blood Culture - Final
Blood/Venous Enterococcus faecalis
Gram Stain - Final
09/23/24 11:03 Blood Culture - Final
Blood/Venous No Growth - Final Report
09/23/24 09:36 Blood Culture - Final
Blood/Venous No Growth - Final Report
09/22/24 15:11 Blood Culture - Final
Blood/Venous Enterococcus faecalis
Gram Stain - Final
Blood Culture Preliminary 09/22/2024
Enterococcus faecalis
Organism 1 Enterococcus faecalis
1. Enterococcus faecalis
M.I.C. RX
--------- ---
Ampicillin <=2 S
Gentamicin Synergy Screen <=500 S
Vancomycin 1 S
Imaging:
09/22/24 Abdominal ultrasound: Numerous small gallstones. Gallbladder wall thickness is top normal. No cholecystic fluid. Negative sonographic Hoyos sign.
09/22/2024 CT abdomen/pelvis: Gallbladder appears borderline distended with cholelithiasis and surrounding stranding concerning for acute cholecystitis. Urinary bladder is mildly distended. There is mild prostamegaly with intravesicular protrusion.
Please see full dictation for additional detail.
[2024-10-01] MEDS: AMPICILLIN 108 MG IV (10:34)
--- NOTE | 2024-10-01 11:02 | W.PN.NEPH.HD ---
Assessment
-
Tolerating dialysis with 1 L ultrafiltration as patient is nonoliguric
Okay for discharge from renal standpoint with dialysis starting Friday outpatient
Progress Note - Hemodialysis
-
Date of Service: October 01, 2024
Duration: 2 hours
Potassium Bath: 3
Calcium Bath: 2.5
Opti-Dialyzer: 160
Blood Flow: 250
Dialysate Flow: 600
EPO: 10,000
--- NOTE | 2024-10-01 11:38 | W.PN.HOSP.TC ---
Today's Communication/Plan
-
Monitor vital signs see plan
HD today, discussed with nephrology and they are okay with patient being discharged after HD today
Continue with antibiotics, last day 10/06
Continue with home CPAP
Afrin for 3 days
Discussed with spouse
Time of discharge 38 minutes
Assessment / Plan
Assessment / Plan
Gen-AAOx3, NAD
HEENT-NC, AT, anicteric, clear oral mm
Neck-supple
CV-reg, no M, +S1/S2
Lungs-clear B/L
Abd-soft, less abdominal tenderness
Ext-no edema
Neuro-grossly non-focal
Psych-calm, cooperative
Postoperative ileus - Denies nausea or vomiting. Overall abdominal pain has improved. Minimize opiates. Out of bed to chair and ambulate with PT. Dulcolax suppository. Discussed with nursing. Surgical service has advanced diet to diabetic.
now with BM; mild heme + stool. hx of hemorrhoids. hgb stable. monitor. no further issues
diarrhea
Likely secondary to antibiotics
C. difficile, noro negative
imodium if needed
Enterococcal Septic shock due to Calculus cholecystitis - repeat blood cultures negative. Antibiotics per ID. WBC count coming down. Afebrile. Continue ampicillin (d#10 abx) dosed for HD. Would complete a 14-day course of antibiotics.
(Through 10/06)
Required vasopressors on 09/24, then were off. Lactic acidosis due to sepsis, present on admission. Now improved.
started pressors again 09/29, levophed for hypotension. Now off Levophed
Acute calculus cholecystitis - choledocholithiasis ruled out with intraoperative cholangiogram. Underwent laparoscopic cholecystectomy September 24, Gallbladder was noted to be severely inflamed and thickened with patchy necrosis.
Suspect right shoulder pain is referred due to gallbladder disease. Interesting that it started postoperatively.
DEQUAN on CKD 3b -etiology of DEQUAN possibly due to contrast-induced nephropathy, hypotension with ischemic ATN. Sepsis can also contribute. Nephrology following. Renal function unfortunately worsening. Monitor volume status closely
Nephrology following; renal function worsening. Patient agreeable to initiate HD. Tunneled HD catheter 09/28. HD initiated 09/29; received HD 09/30,10/01 as well. per nephrology outpatient HD and they will f/u outpatient
Losartan on hold.
Acute hepatitis - likely due to sepsis, shock, ischemia. Transaminases coming down.
DM2 with hyperglycemia -hemoglobin A1c 8.9%, 09/06/2024.
At home he is on insulin degludec 44 units at bedtime, Jardiance 25 mg daily, tirzepatide 10 mg subcutaneously every Friday.
Increase Lantus to 25 units at bedtime. Add NovoLog 5 units with meals.
Chronic heart failure preserved EF -stable.
CAD -stable.
Paroxysmal atrial fibrillation -last dose of Eliquis was 09/22 AM. Resumed Eliquis. no signs of overt bleeding
mild ocassional nose bleed
afrin for 3 days
monitor
Hyperphosphatemia
Monitor
Essential hypertension -hold antihypertensives for low blood pressure.
Hyperlipidemia - Hold rosuvastatin for hepatitis.
History of prostate cancer -s/p TURP.
History of tachybradycardia syndrome -s/p pacemaker.
Diabetic peripheral neuropathy
BPH - With history of chronic bacterial prostatitis. Appreciate urology input. Unlikely to have prostatic abscess currently.
Gout - hold allopurinol.
Obesity due to excess calories
DNR
Dispo -SNF when medically stable. Discussed in length with nephrology, RN, clinical case manager and spouse. Patient will be discharged today after HD. Need midline for antibiotics remaining for few days.
Anticipated Discharge: Today
Subjective/Interval History
-
Date of Service: October 01, 2024
denies pain
Objective Data
-
Labs:
Laboratory Results
10/01/24
07:58
WBC 10.5
Hgb 9.3 L
Hct 28.0 L
Plt Count 190
Sodium 138
Potassium 3.5
Chloride 104
Carbon Dioxide 23
BUN 60 H
Creatinine 4.2 H*
Glucose 157 H
Calcium 7.8 L
Total Bilirubin 0.9
AST 55
ALT 124 H
Alkaline Phosphatase 629 H
Vital Signs:
Vital Signs
Temp Pulse Resp BP Pulse Ox
98.2 F 73 22 130/102 94
10/01/24 08:50 10/01/24 06:00 10/01/24 06:00 10/01/24 06:00 10/01/24 06:00
I&O
09/30/24 10/01/24 10/02/24
06:59 06:59 06:59
Intake Total 400 / 400 200 / 200
Output Total 175 / 175 750 / 750 300 / 300
Balance 225 / 225 -550 / -550 -300 / -300
--- NOTE | 2024-10-01 11:39 | CM ---
Patient with Dx Acute calculus cholecystitis who is s/p laparoscopic yg., DEQUAN. New HD since 09/29 via tunneled catheter. Receiving HD today. Room air. Using home CPAP. Receiving IV Ampicillin Q12, last day 10/06. Enhanced Precautions. Midline
ordered. CXR today.
Spoke with Emma, [facility]; they are able to accept the patient today and are aware of the need for continued IV Abx- they need med list today by 4pm. He will be able to start HD there on Thursday 10/05. Emma is aware patient will
bring his own CPAP. Emma confirms that a [facility] care bed is also available if needed. She will contact the today. The ph for report to nurse Merissa [phone] x [phone], fax [phone].
Met with patient and Elvia; both agree to [facility] today for rehab, possible [facility] care. IMM completed. aware patient needs his CPAP to go with him to SNF. They are aware the [facility] referral was made.
Spoke with Julito [facility] x [phone]; they have all the referral paperwork, sent her H&P & med list today via [facility]. Will fax CXR when available. Provided update patient discharging to [facility] today. They will assign an
outpt HD chair when SNF informs them he is approaching discharge.
Plan [facility] today by ambulance once midline is placed & CXR is completed.
--- NOTE | 2024-10-01 12:12 | W.DCSUMMARY ---
Discharge Summary
Discharge Data
Date of Admission: 09/22/24
Date of Discharge: 10/01/24
-
Pending Results: No
Hospital Course
78-year-old male with past medical history of prostate cancer status post TURP, hyperlipidemia, essential hypertension, tachybradycardia syndrome status post pacemaker, diabetic peripheral neuropathy, BPH with chronic bacterial prostatitis, gout,
obesity, paroxysmal atrial fibrillation, CHF, CAD, diabetes mellitus came to the hospital with septic shock secondary to acute cholecystitis. Patient was seen by surgery and underwent laparoscopic cholecystectomy. Patient initially required
pressors which was able to be weaned off. Patient also developed Enterococcus faecalis bacteremia and was put on antibiotics. Patient was still on IV antibiotics prior to discharge until 10/06/2024. Patient was seen by infectious disease
throughout hospitalization. Postop after cholecystectomy patient developed postoperative ileus which continue to improve over time. Patient was able to tolerate diet prior to discharge. Patient hospital course was complicated with worsening renal
function. Patient was started on hemodialysis. Patient received 3 sessions of hemodialysis inpatient and was instructed to continue to get outpatient hemodialysis and follow-up with nephrology. He also had elevated LFTs secondary to septic shock
which continue to improve over time. Patient was also evaluated by physical therapy who recommended SNF. Since patient symptoms continue to improve after dialysis, he was then discharged with instructions to follow-up with all his physicians
outpatient.
Discharge Plan
-
Patient Disposition: Detention/SNF
Discharge Diagnosis/Procedures: Acute cholecystitis status post robotic cholecystectomy
Septic shock
Enterococcus faecalis bacteremia
Acute kidney injury on CKD, now renal failure on hemodialysis
Transaminitis
Atrial fibrillation
Postoperative ileus
Diabetes mellitus
Mild epistaxis
Diet: As tolerated
Additional Diets: If you notice loose stools after surgery, stick to a low fat diet
Activity: No strenuous activity
Additional Activity: Do not lift over 15lbs for the next 2-3 weeks
Driving Restrictions: Not until seen by your Dr
Bathing Restrictions: OK to Shower
Blood Work: CBC and CMP at rehab
Wound Care: Allow the glue over your incisions to flake off on its own over the next 2-3 weeks. Avoid scrubbing or picking the glue off and swimming or soaking in tubs/pools during this time
Activity Restrictions/Additional Instructions:
Call your surgeon if you have a fever >100.5, nausea with vomiting, or worsening pain
Would complete a 14-day course of antibiotics. (Through 10/06)
Use afrin for 3 days
Referrals:
Newton Crowley MD [Active] -
Will Colon MD [Active] -
Liana Godfrey DO [Active] - None ( or nurse practitioner as previously recommended in the office)
Evin Jimenez DO [Active] -
Soco Meza MD [Family Provider] - in less than 1 week
Jase Whitehead DO [Active] -
Aries Vaca MD [Active] - in two to four weeks
Prescriptions:
New
oxymetazoline [Afrin (oxymetazoline)] 0.05 % [place],Non-Aerosol
1 spray intranasal BID Qty: 0 0RF
Rx Instructions:
Use for 3 days
Ampicillin 2000 MG
0.9% Sodium Chloride 100 ml [Nss] 100 ML
108 mls/hr IV Q12H
Ordered By: Emory Smith MD
Last Taken: 10/01/24 10:34 108 mls
miconazole nitrate [Miconazorb AF] 2 % Powder
1 applic topical BID Qty: 0 0RF
polyethylene glycol 3350 17 gram Powder In Packet
17 g PO DAILYPRN PRN (Reason: constipation) Qty: 0 0RF
midodrine 5 mg Tablet
5 mg PO TID PRN (Reason: sbp<90) Qty: 0 0RF
tamsulosin 0.4 mg Capsule
0.4 mg PO DAILY Qty: 0 0RF
insulin aspart U-100 100 unit/mL (3 mL) Insulin Pen
5 unit SC AC Qty: 0 0RF
Insulin Glargine Lantus [Lantus] 25 UNITS
Subcutaneous Insulin Syringe [Syringe-Insulin] 0 UNIT
As Directed mls/hr SC QPM
Ordered By: Emory Smith MD
Last Taken: 09/30/24 18:23 0.25 mls
Probiotic 10 billion cell capsule
10,000 mmu cells PO DAILY Qty: 7 0RF
loperamide [Anti-Diarrheal (loperamide)] 2 mg capsule
2 mg PO Q6H PRN (Reason: loose stool) Qty: 1 0RF
Continued
cholecalciferol (vitamin D3) [Vitamin D3] 2,000 UNIT capsule
1,000 unit PO DAILY
finasteride 5 MG tablet
5 mg PO DAILY
nitroglycerin 0.4 MG tablet, sublingual
0.4 mg sublingual [id number] PRN (Reason: chest pain) Qty: 25 2RF
triamcinolone acetonide 0.1 % cream
1 applic TOPICAL BIDPRN PRN (Reason: ankle cellulitis R leg)
Eliquis 5 MG tablet
2.5 mg PO BID
cyanocobalamin (vitamin B-12) 1,000 mcg Tablet
1,000 mcg PO DAILY
aspirin 81 mg Tablet,Delayed Release (Dr/Ec)
81 mg PO DAILY
escitalopram oxalate [Lexapro] 10 mg Tablet
10 mg PO DAILY
Changed
pantoprazole 40 MG tablet,delayed release (DR/EC)
40 mg PO BID Qty: 0 0RF
Held
allopurinol 300 MG tablet
300 mg PO DAILY
Hold Instructions: Restart when okay with your physician
Jardiance 25 mg Tablet
25 mg PO DAILY
Hold Instructions: Restart when okay with your physician
rosuvastatin 40 MG tablet
40 mg PO QPM
Hold Instructions: Restart when LFTs improve
Discontinued
furosemide 40 MG tablet
40 mg PO MOWEFR
Patient Comments:
losartan 25 mg Tablet
25 mg PO DAILY
insulin degludec [Tresiba FlexTouch U-200] 200 unit/mL (3 mL) Insulin Pen
44 unit SC QPM
Mounjaro 10 mg/0.5 mL Pen Injector
10 mg SC BORGES
Discharge Orders:
Discharge Patient (As Directed); Ordered 10/01/24
Ordered By: Emory Smith
Discharge Date and Time
Discharge Date/Time: 10/01/24 17:44
Print Language: MONTSERRATIAN
[2024-10-01] MEDS: DESENEX/MITRAZOL/ZEASORB 1 APPLIC TOPICAL (12:46)
[2024-10-01] MEDS: ELIQUIS 2.5 MG PO (12:46)
[2024-10-01] MEDS: LEXAPRO 10 MG PO (12:46)
[2024-10-01] MEDS: IMODIUM 2 MG PO (12:46)
[2024-10-01] MEDS: PROTONIX 40 MG PO (12:46)
[2024-10-01] MEDS: PROSCAR 5 MG PO (12:46)
[2024-10-01] MEDS: ASPIR LOW (ENTERIC COATED) 81 MG PO (12:47)
[2024-10-01] MEDS: AFRIN NASAL SPRAY 1 SPRAYS NASAL (12:48)
[2024-10-01] MEDS: NOVOLOG FLEXPEN-MODERATE RESISTANCE SC (12:48)
[2024-10-01] MEDS: FLOMAX 0.4 MG PO (12:48)
[2024-10-01 12:54] LABS: Glucose - Point of Care 101 mg/dl (70-99)
[2024-10-01] MEDS: NOVOLOG FLEXPEN 5 UNITS SC (12:54)
--- NOTE | 2024-10-01 18:03 | PTCARENOTE ---
Patient had small blood clots from nose today. Discussed with Catherine Bean ordered with relief. Eliquis and bleeding precautions discussed with and patient.
== END 2024-10-01 17:44 | DRG 853 ==
LOC: IMU 16:34
PROVIDERS: Hospitalist; Internal Medicine Critical Care Medicine; Physician Assistant; Radiology Diagnostic Radiology; Specialist; ADMITTING PHYSICIAN Student in an Organized Health Care Education/Training Program; ATTENDING PHYSICIAN Internal Medicine; CONSULT PHYSICIAN Internal Medicine; CONSULT PHYSICIAN Internal Medicine Critical Care Medicine; CONSULT PHYSICIAN Internal Medicine Infectious Disease; CONSULT PHYSICIAN Internal Medicine Nephrology; CONSULT PHYSICIAN Specialist; CONSULT PHYSICIAN Surgery; EMERGENCY PHYSICIAN Emergency Medicine; FAMILY PHYSICIAN Family Medicine
PROC: 0FT44ZZ Resection of Gallbladder, Percutaneous Endoscopic Approach (ICD-10-PCS; 2024-09-24)
PROC: BF532Z0 Other Imaging of Gallbladder and Bile Ducts using Fluorescing Agent, Intraoperative (ICD-10-PCS; 2024-09-24)
PROC: 0JH63XZ Insertion of Tunneled Vascular Access Device into Chest Subcutaneous Tissue and Fascia, Percutaneous Approach (ICD-10-PCS; 2024-09-28)
PROC: 5A1D70Z Performance of Urinary Filtration, Intermittent, Less than 6 Hours Per Day (ICD-10-PCS; 2024-09-29)
DX: A41.81 Sepsis due to Enterococcus (principal); N17.0 Acute kidney failure with tubular necrosis; R65.21 Severe sepsis with septic shock; T81.12XA Postprocedural septic shock, initial encounter; K80.62 Calculus of gallbladder and bile duct with acute cholecystitis without obstruction; K56.7 Ileus, unspecified; K91.89 Other postprocedural complications and disorders of digestive system; B17.9 Acute viral hepatitis, unspecified; Y83.6 Removal of other organ (partial) (total) as the cause of abnormal reaction of the patient, or of later complication, without mention of misadventure at the time of the procedure; N18.32 Chronic kidney disease, stage 3b; E11.22 Type 2 diabetes mellitus with diabetic chronic kidney disease; E11.42 Type 2 diabetes mellitus with diabetic polyneuropathy; I48.0 Paroxysmal atrial fibrillation; E78.00 Pure hypercholesterolemia, unspecified; E66.9 Obesity, unspecified; Z66 Do not resuscitate; Z99.2 Dependence on renal dialysis; Z68.35 Body mass index [BMI] 35.0-35.9, adult
CPT/HCPCS: 88304; 36558; 51798; 71046; 74177; 74300; 76000; 76700; 76937; 77001; 80048; 80053; 80202; 81003; 81015; 82248; 82550; 82805; 82962; 83605; 83690; 83735; 84100; 85025; 85610; 86704; 86705; 86706; 86709; 86803; 87040; 87045; 87046; 87077; 87186; 87205; 87324; 87340; 87427; 87449; 87798; 89055; 93005; 93288; 96361; 96365; 96375; 97163; 97167; 97530; 97535; 99152; 99153; 99285; A4300; C1750; G0257; Q9967